=== PATIENT | female | born 1965 | race Caucasian/White ===

== ENCOUNTER 2017-05-26 07:44 | Inpatient (IN) ==
[2017-05-26] MEDS ORDERED: FUROSEMIDE 100 MG/10 ML VIAL ONE (07:48)
[2017-05-26] MEDS ORDERED: methylPREDNISolone SOD SUC 125 MG/2 ML VIAL IV STA (07:48)
[2017-05-26] MEDS ORDERED: ALBUTEROL 2.5 MG/3 ML NEB RESP TX STA (07:48)
[2017-05-26] MEDS ORDERED: FUROSEMIDE 100 MG/10 ML VIAL IV STA (07:48)
--- NOTE | 2017-05-26 08:04 | Emergency Department Note ---
Arrival - Arrival Chief Complaint: Shortness of Breath ED Nursing Triage Note: pt c/o sudden sob onset about 45 minutes travel pta per ems. pt on cpap. no iv. Mode of Arrival: Stretcher Source: EMS Time Seen by Provider: 05/26/17 07:48 - History of Present Illness HPI Narrative: Patient is a 51-year-old white female who is brought from home by EMS with profound shortness of breath. Prior to arrival EMS was unable to obtain a liner and airway other than BiPAP. Patient was unable to provide a history due to her profound shortness of breath. Patient was intubated upon arrival. Daughter has now arrived and states that the patient was to have a valve replacement at [facility] but never followed up. Onset (ago): hour(s) (1) Consistency: constant Severity: severe Allergies/Adverse Reactions: Allergies Allergy/AdvReac Type Severity Reaction Status Date / Time Amoxicillin Allergy Unknown/Unable Verified 05/26/17 09:08 to obtain Home Medications: Home Medications Medication Instructions Recorded Confirmed Type Albuterol Inhaler [Proventil 2 puff INH Q4H PRN #1 inhaler 01/16/17 Rx Inhaler] Review of System - Review of System ROS unobtainable: other (Due to profound dyspnea) 12 point system: reviewed and no additional remarkable complaints except as stated Medical,Surgical,& Family Hx - Social History Functional capacity: independent ambulation Exam Vital Signs: Vital Signs Temperature 98.1 F 05/26/17 09:37 Pulse Rate 118 H 05/26/17 09:37 Respiratory Rate 12 05/26/17 09:37 Blood Pressure 162/95 05/26/17 09:37 O2 Sat by Pulse Oximetry 95 05/26/17 09:37 GENERAL: This is a well-nourished white female in extremis in severe respiratory distress. VITAL SIGNS: Reviewed HEENT: Head is atraumatic and normocephalic. Pupils are equal round react to light. Extraocular movements are intact. Oropharynx is benign with moist mucous membranes. NECK: Neck is soft and supple without tenderness. There are no masses. There is no lymphadenopathy. LUNGS: Rales bilaterally, retractions. Chest rises symmetrically. There is no chest wall tenderness. CV: Heart is rapid rate regular rhythm without murmurs rubs or gallops. ABDOMEN: Abdomen is soft, nontender to palpation. There are no abdominal abnormal masses palpated. There is no organomegaly. Bowel sounds are present and active. SKIN: Cool and moist. No rash. EXTREMITIES: Patient has full range of motion without tenderness. There is no pedal edema. NEUROLOGIC: Eyes open, nonverbal. Moves all extremities. Course - Consultations Consultation #1: Discussed with hospitalist. Patient will be admitted to their service. Time: :17 Procedures - Central Line Placement Right Femoral Consent Obtained: verbal consent Time Out Performed: Yes Patient Placed on Monitor/Pulse Ox: Yes MD Prep: mask, gown, gloves Central Line Prep: Chlorhexidine scrub Local Anesthetic: lidocaine 1% Amount of anesthesia used (mL): 3 Ultrasound Used for Placement: No Central Line Lumen Inserted: triple Post Procedure: sutured in place, good blood return, all ports aspirated, flushed, capped, sterile dressing applied Post Procedure X-Ray: tip of catheter in good position Patient Tolerated Procedure: well Complications: none - Intubation Time out performed: Yes sedative: Etomidate Mg Given: 20 paralytic: Succinylcholine Mg Given: 100 Laryngoscope: fiber optic video scope ET Tube Size: 8 ET Tube Uncuffed: No Tube Secured Depth (cm): 22 Tube Secured Location: lips Tube Placement Confirmation: visualized tube passing through cords, equal breath sounds bilaterally, no breath sounds over epigastrium, confirmation detector color change Patient Tolerated Procedure: well Intubation Complications: none - IO Right Tibia Consent Obtained: verbal consent Local Anesthetic: lidocaine 1% Amount of anesthesic used (mL): 1 IO Instrument Used to Penetrate the Cortex: battery powered IO drill Patient Tolerated Procedure: well Complications: none Results - Labs CBC & BMP: 05/26/17 08:01 05/26/17 08:01 Lab Results: I have reviewed the patients labs Labs: Preliminary echocardiogram report: EF 10-15%, severe MR, trace TR. - EKG EKG results: interpreted by ERMD - Impressions EKG: Sinus tachycardia with a rate of 113, ST segment depression laterally, normal axis. - Diagnostic Findings Procedure: Chest x-ray: image reviewed by me (Endotracheal tube is in good position above the billie. Bilateral increased pulmonary markings. This is consistent with pulmonary edema.), KUB x-ray: image reviewed by me (Tip of central line is present in the right femoral vein), CT: image reviewed by me ( CT head: No acute intracranial lesion or hemorrhage.) Critical Care Time Critical Care Time: Yes Total Critical Care Time: 60 Disposition Clinical Impression: Acute respiratory failure, Pulmonary edema, Severe mitral regurgitation, Cardiomyopathy Case discussed with: patient's family Disposition: Still a Patient Condition: Critical
[2017-05-26] MEDS ORDERED: SUCCINYLCHOLINE 200 MG/10 ML VIAL ONE (08:09)
[2017-05-26] MEDS ORDERED: VECURONIUM 10 MG VIAL IV ONE (08:09)
[2017-05-26] MEDS ORDERED: methylPREDNISolone SOD SUC 125 MG/2 ML VIAL ONE (08:09)
[2017-05-26] MEDS ORDERED: ETOMIDATE 20 MG/10 ML VIAL IV ONE (08:09)
[2017-05-26] MEDS ORDERED: VECURONIUM 10 MG VIAL IV STA (08:14)
[2017-05-26 08:21] LABS: Basophils # 0.1 10*3/uL (0.0-0.2); Basophils % 0.5 % (0.0-0.8); Eosinophils # 0.2 10*3/uL (0.0-0.87); Hematocrit 41.1 VOL% (35.7-47.0); Hemoglobin 12.4 GM/DL (12.0-16.0); INR 1.5; Immature Granulocytes % 0.7 %; Immature Granulocytes Absolute 0.07 #; Lymphocytes # 4.5 10*3/uL (1.4-4.0); Lymphocytes % 45.2 % (21.3-54.2); Mean Corpuscular HGB Conc 30.2 GM/DL (32-36); Mean Corpuscular Hemoglobin 29 PG (27-34); Mean Corpuscular Volume 96.5 FL (87-102); Mean Platelet Volume 10.9 FL (9.6-12.0); Monocytes # 0.5 10*3/uL (0.11-0.8); Monocytes % 5.2 % (1.7-12.7); NRBC # 0.07 10*3/uL; Neutrophils # 4.6 10*3/uL (1.4-7.4); Neutrophils % 46.4 % (38.7-73.9); PT Patient Result 16.6 SECS; Partial Thromboplastin Time 30.1 SECS (0-40); Platelet Count 300 T/CUMM (130-400); Red Blood Count 4.26 MC/CUMM (3.8-5.5); Red Cell Distribution Width 18.1 % (9.3-17.3)
--- NOTE | 2017-05-26 08:32 | EKG Report ---
Stationary ECG Study [facility] ER Test Date: 05/26/2017 8:30:10 AM Pat Name: ELVA SERNA Department: Room: Gender: F [employer]: : 01/21/1959 Requested by: Justen Chan Order Number: [id number] Reading MD: SHELDON SALDAÑA Intervals [place] Rate: 113 P: 56 RI: 154 QRS: 110 QRSD: 97 T: -47 QT: 322 QTc: 389 Interpretive Statements SINUS TACHYCARDIA POSSIBLE RIGHT VENTRICULAR HYPERTROPHY ST DEVIATION AND MODERATE T-WAVE ABNORMALITY, CONSIDER INFERIOR ISCHEMIA Electronically Signed On 05-26-17 10:40:07 CDT by SHELDON SALDAÑA [email or web address]
[2017-05-26 08:44] LABS: ABG HCO3 19.3 MMOL/L (20-26); ABG Oxygen Saturation 25.8 % (95-100); ABG TCO2 21.4 MMOL/L (23-27)
[2017-05-26 08:45] LABS: ABG PCO2 70.7 MM HG (35-48); ABG PH 7.053 (7.35-7.45)
[2017-05-26 08:46] LABS: ABG PO2 20.6 MM HG (80-95)
[2017-05-26 08:48] LABS: Albumin 3.3 G/DL (3.4-5.0); Bilirubin,Total 0.4 MG/DL (0.2-1.0); Calcium 8.5 MG/DL (8.5-10.1); Magnesium 2.3 MG/DL (1.8-2.4); Potassium 4.6 MMOL/L (3.5-5.1); Total Protein 6.9 G/DL (6.4-8.3); Troponin I Only 0.029 NG/ML (0.00-0.045)
[2017-05-26] MEDS ORDERED: SODIUM BICARBONATE 50 MEQ/50 ML VIAL IV STA (08:48)
[2017-05-26] MEDS ORDERED: SODIUM BICARBONATE 50 MEQ/50 ML SYRINGE IV ONE (08:49)
--- NOTE | 2017-05-26 09:10 | CT Report ---
CT brain Indication: Altered mental status Comparison: None available Technique: Axial CT imaging of the brain is performed without contrast with 3 mm increments. Findings: No evidence of hemorrhage, mass mass effect midline shift or acute infarct seen. The brain parenchyma attenuation and differentiation appears within normal limits. The ventricles and cisterns are normal in caliber. No cranial or skull base abnormality is identified. Impression: No evidence of acute process or other significant abnormality demonstrated. This CT exam was performed using one or more the following dose reduction techniques: Automated exposure control, adjustment of the MA and/or KV according to patient size, or use of iterative reconstruction technique. PROCEDURE INTERPRETED AT [facility] [place] DEPARTMENT OF RADIOLOGY Final Report Signed by: Dr. Lincoln Delcid
--- NOTE | 2017-05-26 09:12 | XRay Report ---
XR chest 1V portable Indication: Shortness of breath Comparison: None available Findings: The heart and mediastinum are stable in size and configuration. Endotracheal tube is present with tip at the clavicle level. NG tube present with tip in the distal esophagus. The pulmonary vascularity is increased with bilateral increased interstitial lung density. No other lung infiltrates, effusions, pneumothorax or other abnormality is demonstrated. Impression: Findings suggest cardiac decompensation. Endotracheal tube position appears within normal limits. NG tube tip is in distal esophagus. PROCEDURE INTERPRETED AT [facility] DEPARTMENT OF RADIOLOGY Final Report Signed by: Dr. Lincoln Delcid
--- NOTE | 2017-05-26 09:13 | XRay Report ---
XR KUB Indication: Femoral line placement Comparison: None available Findings: No free fluid or free air seen. Clips are present from previous surgery. A right femoral catheter is present, appears within normal limits. The bowel gas pattern appears within normal limits. No abnormal calcifications are present. No other abnormality is identified. Impression: Catheter position appears within normal limits. No other acute findings. PROCEDURE INTERPRETED AT [facility] DEPARTMENT OF RADIOLOGY Final Report Signed by: Dr. Lincoln Delcid
[2017-05-26 09:49] LABS: Apearance,Urine Slightly Hazy (Clear); Bacteria,Urine Occasional /HPF (Few); Bilirubin,Urine Negative (Negative); Blood, Urine Small mg/dL (Negative); Glucose,Urine (UA) 50 mg/dL (Negative); Hyaline Casts,Urine 1 /LPF (0-3); Ketones,Urine Negative (Negative); Mucus,Urine Occasional /LPF (Occasional); Nitrite,Urine Negative (Negative); Protein,Urine 100 MG/DL; RBC,Urine 51 /HPF (0-4); Squamous Epithelial Cell,Urine Occasional /HPF (0-10); Urine Color Yellow (Yellow); Urine Specific Gravity 1.006 (1.001-1.035); Urine Urobilinogen < 2.0 EU/DL (0.2-1.0); WBC,Urine 28 /HPF (0-6)
[2017-05-26 10:02] LABS: Barbiturates Screen,Urine Negative (Negative); Benzodiazepines Screen,Urine Negative (Negative); Cannabinoid Screen,Urine Negative (Negative); Opiate Screen,Urine Positive (Negative); Phencyclidine Screen,Urine Negative (Negative)
[2017-05-26 10:15] LABS: ABG Base Excess -7.1 MMOL/L (-2.5-2.5); ABG HCO3 20.6 MMOL/L (20-26); ABG Oxygen Saturation 94.3 % (95-100); ABG PCO2 49.4 MM HG (35-48); ABG PH 7.237 (7.35-7.45); ABG PO2 83.9 MM HG (80-95); ABG TCO2 22.1 MMOL/L (23-27)
[2017-05-26] MEDS ORDERED: ONDANSETRON 4 MG/2 ML VIAL IV PRN (10:18)
[2017-05-26] MEDS ORDERED: GLUCAGON 1 MG VIAL IM PRN (10:18)
[2017-05-26] MEDS ORDERED: DEXTROSE 50% 25 GM/50 ML VIAL IV PRN (10:18)
[2017-05-26] MEDS ORDERED: ALBUTEROL 2.5 MG/3 ML NEB RESP TX PRN (10:18)
--- NOTE | 2017-05-26 10:39 | Hospitalist History & Physical ---
<Denice Garcia - Last Filed: 05/26/17 14:24> Assessment and Plan (1) Acute respiratory failure Status: Acute Assessment and plan: Admit to ICU. Mechanical ventilation. Consult pulmonary for vent management. IV antibiotics. Blood cultures pending. UA showed small leuks. Lactic acid elevated. repeat per protocol. Follow closely. CBC/BMP in am. CXRs. Current Visit: Yes (2) Pulmonary edema Status: Acute Assessment and plan: IV lasix. Consult pulmonary. Current Visit: Yes (3) Cardiomyopathy Status: Acute Assessment and plan: Consult cards. prior hx of valve insufficiency. Current Visit: Yes (4) Elevated troponin Status: Acute Assessment and plan: Serial troponins. Serial ekgs. Consult cards. Echo ordered to evaluate function. Current Visit: Yes (5) CHF (congestive heart failure) Status: Acute Assessment and plan: BNP >5000. Repeat in am. Diuresis. CXR shows decompensation. Consult cardiology. Current Visit: Yes History of Present Illness Chief complaint: shortness of breath History of present illness: Ms. Najera is a 51 year old white female with a history of htn, chf, and valvular insufficiency that presented to the ED via EMS for evaluation of sudden onset shortness of breath. Pt. is unable to provide any history as she is intubated during our encounter. Pt.'s daughter Delia is present at the bedside and provides information. She states that she was preparing to go to school this morning when this incident began. She states she checked on her mom around 6:34 and she was sleep. She heard movement and her mother was up (she went to bathroom and returned to bedroom). Around 645, her mother called her to room. Ms. Najera said "oh here we ago again" and stated she was having trouble breathing. Her daughter attempted to calm her down. She states at that point she noticed discoloration in her skin. Ms. Najera requested EMS be called. Upon their arrival they were unable to obtain an airway other than a BiPAP. Pt. was intubated on arrival to ED. Remarkable labs revealed lactic acid of 11.5, glucose 248, BNP >5000, creatinine 1.50, anion gap, and troponin 3.93. UA showed small leuks. Ph of 7.237, Co2 49.4. Pt's daughter does report that her mom was supposed to have a valve replacement in [place] but never followed up. She is unaware of any health history other than what is provided. She is also unaware of any med compliance or noncompliance. Pt.'s case has been discussed with ER physician Dr. [place] and hospitalist Dr. Bartholomew. Pt. will be admitted to the hospitalist program and placed in the ICU for close monitoring. Pt does not have an advanced directive. Home meds are not available. Cardiology and pulmonology will be consulted to assist in care. Home Medications Medication Instructions Recorded Confirmed Type Albuterol Inhaler [Proventil 2 puff INH Q4H PRN #1 inhaler 01/16/17 Rx Inhaler] Carvedilol [Carvedilol] 25 mg PO BID 05/26/17 History Gabapentin [Gabapentin] 300 mg PO TID 05/26/17 History cloNIDine HCl [Clonidine HCl] 0.1 mg PO QAM 05/26/17 History clonazePAM [Clonazepam] 2 mg PO BID PRN 05/26/17 History Allergies Allergy/AdvReac Type Severity Reaction Status Date / Time Amoxicillin Allergy Unknown/Unable Verified 05/26/17 09:08 to obtain Medical,Surgical,& Family Hx - Medical History Cardio: History of: CHF, Hypertension Psychological: History of: Anxiety Disorders - Social History Smoking Status: Unknown if ever smoked Frequency of Alcohol Use: Unknown Type of Drug Use: Unknown ROS unobtainable: due to endotracheal tube Exam - Constitutional Vitals: Period Temp Pulse Resp BP Sys/Smith Pulse Ox Last 24 Hr 98.1 F-99.2 F 103-130 12-40 126-162/61-98 83-100 General appearance: mild distress, disheveled - Head Head exam: Present: normal inspection. Absent: atraumatic, abrasion - Eye Eye exam: Absent: EOMI Pupils: Present: fixed. Absent: SURJIT - Neck Neck exam: Present: normal inspection - Respiratory Respiratory exam: Present: rhonchi - Cardiovascular Cardiovascular exam: Present: tachycardia - GI/Abdominal GI/Abdominal exam: Present: normal bowel sounds, soft. Absent: tenderness - Neurological Exam Neurological exam: Present: altered - Psychiatric Psychiatric exam: Present: other (unable to assess) - Skin Skin exam: Present: diaphoretic, intact, mottled Results - Labs CBC & BMP: 05/26/17 08:01 05/26/17 08:01 Lab Results: I have reviewed the past 24 hour labs <PumaDarline - Last Filed: 05/26/17 17:05> History of Present Illness History of present illness: Patient seen and examined along with IT APPLICATIONS DEVELOPER Garcia, agree with history, assessment and plan as documented. Patient with acute episode of SOB, intubated on arrival to the ED. Per daughter patient with history of chf and is suppose to be having a valve replaced in [place]. CXR with pulmonary edema. BNP >5000. Elevated lactic acid with no fever or leukocytosis. Troponin negative on admission. On my exam today, her blood pressure was actually a little elevated but her extremities are cold. Cardiology consulted. Increase in troponin to 6. Echo with EF 10%, grade 3 diastolic dysfunction and moderate to severe, eccentric mitral regurgitation. Exam - Constitutional Vitals: Period Temp Pulse Resp BP Sys/Smith Pulse Ox Last 24 Hr 96 F-99.2 F 70-130 12-40 60-162/44-122 10-100 Results - Labs CBC & BMP: 05/26/17 08:01 05/26/17 08:01
[2017-05-26] MEDS: PROPOFOL 1,000 MG/100 ML BOTTLE IV SCH (11:01)
[2017-05-26] MEDS: PANTOPRAZOLE 40 MG VIAL IV SCH (11:03)
[2017-05-26 11:31] LABS: CKMB % 6.9 %
[2017-05-26 11:38] LABS: Troponin I Only 3.93 NG/ML (0.00-0.045)
[2017-05-26] MEDS ORDERED: DOBUTamine 500 MG/250 ML PREMIX IV SCH ×2 (12:00→18:00)
--- NOTE | 2017-05-26 12:12 | Nuclear Medicine Report ---
History: Shortness of breath. Evaluate for pulmonary embolus Date: 05/26/2017 Study: Nuclear medicine ventilation/perfusion lung scan Comparison exam: Chest x-ray 05/26/2017 Following the inhalation of 40 mCi aerosolized technetium 99m DTPA, images were obtained over the lungs in 3 projections for the purpose of a ventilation study. Then, following the IV administration of 5 mCi technetium 99m MAA, images were acquired of the lungs in the same projections for the purpose of a perfusion scan. There is no moderate or large unmatched segmental perfusion defect in either lung. There are some small matched areas of subsegmental decreased ventilation and perfusion in the lingula and right middle lobe. There is an additional small to moderate ventilation defect in the right lower lobe laterally. The chest x-ray shows a bilateral perihilar pulmonary edema pattern. Impression: The study is abnormal but is considered low probability for pulmonary embolic disease PROCEDURE INTERPRETED AT [facility] DEPARTMENT OF RADIOLOGY Final Report Signed by: Dr. Ellen Lowery
[2017-05-26] MEDS: INSULIN REGULAR 100 UNIT/ML SUBCUT SCH ×3 (12:41→23:46)
[2017-05-26] MEDS: cefTRIAXone 1,000 MG in SODIUM CHLORIDE 0.9% 100 ML IV SCH (12:45)
--- NOTE | 2017-05-26 12:56 | Pulmonology Consult Note ---
Assessment and Plan (1) Acute respiratory failure Status: Acute Assessment and plan: Patient is on the ventilator now in ICU. She presented with acute respiratory distress. Current Visit: Yes (2) Pulmonary edema Status: Acute Assessment and plan: Patient looks like she has acute pulmonary edema. Current Visit: Yes (3) Severe mitral regurgitation Status: Acute Assessment and plan: Patient apparently has severe mitral insufficiency and may have cardiogenic shock now. Current Visit: Yes (4) Cardiomyopathy Status: Acute Assessment and plan: She has acute pulmonary edema and cardiology will evaluate Current Visit: Yes History of Present Illness Chief complaint: Ventilator management History of present illness: Ms. Najera is a 51 year old white female that apparently came in today with acute respiratory distress and has acute pulmonary edema. She has known valvular heart disease and has hypertension and heart failure. This morning she had acute distress and had to be intubated. She is now on the ventilator in the ICU. She has been hypotensive and looks like she is in cardiogenic shock. Otherwise there is not a lot of past history available. Home Medications Medication Instructions Recorded Confirmed Type Albuterol Inhaler [Proventil 2 puff INH Q4H PRN #1 inhaler 01/16/17 Rx Inhaler] Allergies Allergy/AdvReac Type Severity Reaction Status Date / Time Amoxicillin Allergy Unknown/Unable Verified 05/26/17 09:08 to obtain ROS unobtainable: due to endotracheal tube (Unable to give any history at present) Exam (Pulmonay) H&P - Constitutional Vitals: Period Temp Pulse Resp BP Sys/Smith Pulse Ox Last 24 Hr 96.0 F-99.2 F 103-130 12-40 126-162/61-103 83-100 General appearance: severe distress (The patient is quite ill on the ventilator. ), under weight - Head Head exam: Present: normal inspection, normocephalic - Eye Eye exam: Present: EOMI. Absent: scleral icterus Pupils: Present: SURJIT - ENT ENT exam: Present: other (ET tube is in good position) - Neck Neck exam: Absent: lymphadenopathy, thyromegaly - Respiratory Respiratory exam: Present: rales (Patient has extensive bilateral rales.) - Cardiovascular Cardiovascular exam: Present: regular rate and rhythm, systolic murmur, tachycardia - GI/Abdominal GI/Abdominal exam: Present: soft. Absent: distended, organomegaly, tenderness - Extremities Exam Extremities exam: Absent: calf tenderness, edema - Neurological Exam Neurological exam: Present: other (Patient is sedated at present.) - Psychiatric Psychiatric exam: Absent: anxious - Skin Skin exam: Present: mottled, other (Her extremities are cool.) Medical,Surgical,& Family Hx - Medical History Cardio: History of: CHF, Hypertension Psychological: History of: Anxiety Disorders - Social History Smoking Status: Unknown if ever smoked Frequency of Alcohol Use: Unknown Type of Drug Use: Unknown Results - Labs CBC & BMP: 05/26/17 08:01 05/26/17 08:01 Labs: Her PO2 is 83 with a PCO2 of 49 and a pH of 7.23 in the emergency room. - Diagnostic Findings Procedure: Chest x-ray: image reviewed by me, report reviewed by me (Chest x- ray shows acute pulmonary edema)
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
--- NOTE | 2017-05-26 16:22 | ECHO Report ---
Fabiola Najera Exam Date: 05/26/2017 09:11 Referring Physician: Technologist: Diamond Van LRCANDACE Age: 51 Ht (in): 64 Wt (lb): 160 Gender: F Exam Location: [facility] Echo Indications: acute resp failure, pul edema, cardiomyopathy BP: 153 / 101 HR: 99 Rhythm: Sinus Technical Quality: IMPRESSIONS Moderately dilated left ventricle, without hypertrophy. Severe global hypokinesis, estimated left ventricular ejection fraction 10%. Grade 3 diastolic dysfunction. Mild right atrial and severe left atrial enlargement. The posterior mitral leaflet is restricted in mobility. Moderate to severe, eccentric mitral regurgitation. Mild pulmonary hypertension. MEASUREMENTS (Male / Female) Normal Values 2D ECHO LV Diastolic Diameter PLAX 6.6 cm 4.2 - 5.9 / 3.9 - 5.3 cm LV Systolic Diameter PLAX 6.5 cm LV Fractional Shortening PLAX 1.4 % IVS Diastolic Thickness 0.9 cm 0.6 - 1.0 / 0.6 - 0.9 cm LVPW Diastolic Thickness 1.0 cm 0.6 - 1.0 / 0.6 - 0.9 cm Aortic Root Diameter 2.6 cm LA Systolic Diameter LX 5.0 cm 3.0 - 4.0 / 2.7 - 3.8 cm DOPPLER TR Peak Velocity 326.0 cm/s TR Peak Gradient 42.5 mmHg FINDINGS Left Ventricle Moderately dilated left ventricle, without hypertrophy. Severe global hypokinesis, estimated left ventricular ejection fraction 10%. Grade 3 diastolic dysfunction. Right Ventricle Normal right ventricular size. Normal systolic function Right Atrium The right atrium is mildly enlarged. Left Atrium Severely dilated left atrium. Mitral Valve The posterior mitral leaflet is restricted in mobility. Moderate to severe, eccentric mitral regurgitation. Aortic Valve Structurally normal aortic valve, without stenosis or insufficiency Tricuspid Valve Morphologically normal tricuspid valve. Mild tricuspid valve regurgitation. Tricuspid regurgitation velocities suggest a PAP of 42.5 mmHg + RAP. Pulmonic Valve Morphologically normal pulmonic valve. Trace insufficiency. Pericardium No pericardial effusion. Aorta Normal size aortic root and proximal ascending aorta. Luis Alberto Bone (Electronically Signed) Final Date: 26 May 2017 16:21
[2017-05-26] MEDS: FUROSEMIDE 40 MG/4 ML VIAL IV SCH (17:05)
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
[2017-05-26] MEDS: MORPHINE 2 MG/1 ML SYRINGE IV PRN ×2 (20:28→23:00)
--- NOTE | 2017-05-26 22:51 | EKG Report ---
Stationary ECG Study [facility] Test Date: 05/26/2017 10:44:50 PM Pat Name: JOVANY EARL Department: Room: 115 Gender: F Special Educator: TS : [id number] Requested by: Volodymyr Mann Order Number: [id number] Reading MD: MARIA L HANCOCK Intervals [place] Rate: 96 P: 74 NV: 180 QRS: 57 QRSD: 90 T: 269 QT: 400 QTc: 454 Interpretive Statements SINUS RHYTHM ST DEVIATION AND MODERATE T-WAVE ABNORMALITY, CONSIDER ANTEROLATERAL ISCHEMIA ST DEVIATION AND MODERATE T-WAVE ABNORMALITY, CONSIDER INFERIOR ISCHEMIA Prolonged QTc Electronically Signed On 05-27-17 06:57:59 CDT by MARIA L HANCOCK [email or web address]
[2017-05-27] MEDS: MORPHINE 2 MG/1 ML SYRINGE IV PRN ×4 (01:07→14:06)
[2017-05-27] MEDS: PROPOFOL 1,000 MG/100 ML BOTTLE IV SCH ×4 (01:17→20:28)
[2017-05-27 03:21] LABS: ABG Base Excess 2.6 MMOL/L (-2.5-2.5); ABG HCO3 26.7 MMOL/L (20-26); ABG Oxygen Saturation 99.5 % (95-100); ABG PCO2 33.7 MM HG (35-48); ABG PH 7.487 (7.35-7.45); ABG TCO2 22.2 MMOL/L (23-27); Allen Test Positive; Pt O2 Delivery Device Ventilator
[2017-05-27 05:42] LABS: Basophils % 0.1 % (0.0-0.8); Hematocrit 37.2 VOL% (35.7-47.0); Hemoglobin 12.4 GM/DL (12.0-16.0); Immature Granulocytes % 0.9 %; Immature Granulocytes Absolute 0.13 #; Lymphocytes # 0.8 10*3/uL (1.4-4.0); Lymphocytes % 5.2 % (21.3-54.2); Mean Corpuscular HGB Conc 33.3 GM/DL (32-36); Mean Corpuscular Hemoglobin 28 PG (27-34); Mean Corpuscular Volume 85.3 FL (87-102); Mean Platelet Volume 10.6 FL (9.6-12.0); Monocytes # 0.5 10*3/uL (0.11-0.8); Monocytes % 3.4 % (1.7-12.7); Neutrophils # 13.5 10*3/uL (1.4-7.4); Neutrophils % 90.4 % (38.7-73.9); Platelet Count 245 T/CUMM (130-400); Red Blood Count 4.36 MC/CUMM (3.8-5.5); Red Cell Distribution Width 17.7 % (9.3-17.3); White Blood Count 14.9 T/CUMM (4-12)
[2017-05-27] MEDS: INSULIN REGULAR 100 UNIT/ML SUBCUT SCH ×3 (05:54→17:40)
[2017-05-27 06:22] LABS: Calcium 8.9 MG/DL (8.5-10.1); Osmolality,Calculated 284.5 MOS/KG (273-304); Potassium 4.1 MMOL/L (3.5-5.1)
[2017-05-27] MEDS ORDERED: MAGNESIUM SULF RIDER 4 GM in PREMIX 1 EACH IV PRN (07:03)
[2017-05-27] MEDS ORDERED: MAGNESIUM SULF RIDER 2 GM in PREMIX 1 EACH IV PRN (07:03)
--- NOTE | 2017-05-27 07:28 | Pulmonology Progress Note ---
Pulmonary - PN: Subj Interval history: Patient is a 51-year-old lady that has a history of having severe mitral insufficiency. She apparently has a very severe cardiomyopathy. She came in with acute pulmonary edema has been on the ventilator. She has diuresed fairly well and her chest x-ray looks much better. Her oxygenation has improved nicely. Her blood pressure is much more stable now. Overall she is doing better now. Exam (Progress Note) - Constitutional Vitals: Period Temp Pulse Resp BP Sys/Smith Pulse Ox Last 24 Hr 96 F-99.2 F 70-130 1-40 60-162/44-122 10-100 Exam: General appearance: no distress (The patient is comfortable on the ventilator now and her blood pressure is much improved.) - Head Head exam: Present: normal inspection, normocephalic - Eye Eye exam: Present: EOMI. Absent: scleral icterus Pupils: Present: SURJIT - ENT ENT exam: Present: other (ET tube is in good position) - Neck Neck exam: Absent: lymphadenopathy, thyromegaly - Respiratory Respiratory exam: Present: She has good breath sounds now and her lungs sound much clearer with less rales. - Cardiovascular Cardiovascular exam: Present: regular rate and rhythm, systolic murmur, tachycardia - GI/Abdominal GI/Abdominal exam: Present: soft. Absent: distended, organomegaly, tenderness - Extremities Exam Extremities exam: Absent: calf tenderness, edema - Neurological Exam Neurological exam: Present: other (Patient is sedated at present.) - Psychiatric Psychiatric exam: Absent: anxious - Skin Skin exam: Present: Extremities are warm now with good color. Results - Labs CBC & BMP: 05/27/17 05:12 05/27/17 05:12 Labs: PO2 is 370 with a PCO2 33 and a pH of 7.48 - Diagnostic Findings Procedure: Chest x-ray: image reviewed by me, report reviewed by me (Chest x- ray is much clearer now with resolution of the CHF.) Assessment and Plan (1) Acute respiratory failure Status: Acute Assessment and plan: Patient is on the ventilator now in ICU. She presented with acute respiratory distress. Her oxygenation is much better and her respiratory distress is stable now. Current Visit: Yes (2) Pulmonary edema Status: Acute Assessment and plan: Patient looks like she has acute pulmonary edema. Her pulmonary edema is much improved. Will start weaning from the ventilator. Current Visit: Yes (3) Severe mitral regurgitation Status: Chronic Assessment and plan: Patient apparently has severe mitral insufficiency and came in with congestive heart failure. She is a little more stable now. Current Visit: Yes (4) Cardiomyopathy Status: Acute Assessment and plan: She has acute pulmonary edema and apparently her ejection fraction is very poor. Current Visit: Yes
--- NOTE | 2017-05-27 08:20 | XRay Report ---
Portable chest Exam date: 05/27/2017 304 AM Indication: Shortness of breath, cough Comparison: Previous day at 0820 hours Findings: Cardiomediastinal contours are stable with no change in tube or line placement. Partial clearing of the central interstitial alveolar opacities within the upper and left lower lobe. Persistent hazy groundglass consolidation within the right lung base with partial obscuration right hemidiaphragm. No acute osseous abnormalities. Visualized upper abdomen demonstrates no acute pathology. Impression: Improving pulmonary edema pattern PROCEDURE INTERPRETED AT [facility] DEPARTMENT OF RADIOLOGY Final Report Signed by: Aleksandr Bautista
[2017-05-27 08:27] LABS: ABG Base Excess 3.2 MMOL/L (-2.5-2.5); ABG HCO3 27.2 MMOL/L (20-26); ABG Oxygen Saturation 95.1 % (95-100); ABG PCO2 38.8 MM HG (35-48); ABG PH 7.453 (7.35-7.45); ABG PO2 79.7 MM HG (80-95); ABG TCO2 23.9 MMOL/L (23-27); Allen Test Positive; Pt O2 Delivery Device Ventilator
[2017-05-27] MEDS: FUROSEMIDE 40 MG/4 ML VIAL IV SCH ×2 (08:35→15:39)
[2017-05-27] MEDS: PANTOPRAZOLE 40 MG VIAL IV SCH (11:39)
[2017-05-27] MEDS: cefTRIAXone 1,000 MG in SODIUM CHLORIDE 0.9% 100 ML IV SCH (12:48)
--- NOTE | 2017-05-27 13:46 | Cardiology Progress Note ---
Jax Carrasco Vanessa, RN, am scribing for, and in the presence of, Luis Alberto Bone MD 13 :45. Assessment and Plan - Time spent with patient Time spent with patient: Greater than 30 minutes (1) Acute respiratory failure Status: Acute Assessment and plan: 51 year old WF, PMHx HTN, NICM with acute on chronic systolic CHF, EF 10% and severe MR. She has been noncompliant in the past with illicit drug use and smoking, has been referred for mitral valve repair in past but has not followed up. Now admitted with acute pulmonary edema and respiratory failure, intubated and requiring IV Dobutamine infusion. Echo shows moderately dilated LV and severe global hypokinesis, EF 10%, moderate diastolic dysfunction, severe LA enlargement, mild pulm HTN with PAP 42.5 mmHg, severe MR with restriction of posterior mitral leaflet. EKG: SR/ST 1. CHF. She had hypotension earlier, dobutamine was initiated at 5, which triggered bigemin PVCs. Decreased dobutamine to 2, so far fair hamodynamics. Severely depressed systolic function, chronic severe MR. PVC burden decreased 2. Once blood pressure allows, we will try to reinitiate vasodilator treatment. 3. Elevated troponin. She has nonischemic cardiomyopathy, this could have been related to hypoperfusion. LA was also elevated. Doubt ACS 4. Severe MR. She did not follow up with instructions for corrective surgery in the past. If recovers from acute issues, this will need to be readdressed. 5. Continue diuresis and positive pressure ventilation for hemodynamic support 6. Poor prognosis Current Visit: Yes (2) Acute on chronic systolic CHF (congestive heart failure) Status: Chronic Assessment and plan: SEE PLAN OF CARE LISTED ABOVE. Current Visit: Yes (3) Elevated troponin Status: Acute Assessment and plan: SEE PLAN OF CARE LISTED ABOVE. Current Visit: Yes (4) Nonischemic cardiomyopathy Status: Chronic Assessment and plan: SEE PLAN OF CARE LISTED ABOVE. Current Visit: Yes (5) History of left bundle branch block Status: Chronic Assessment and plan: SEE PLAN OF CARE LISTED ABOVE. Current Visit: Yes (6) Hypothyroidism Status: Chronic Assessment and plan: SEE PLAN OF CARE LISTED ABOVE. Current Visit: Yes (7) Severe mitral regurgitation Status: Chronic Assessment and plan: SEE PLAN OF CARE LISTED ABOVE. Current Visit: Yes (8) Hypomagnesemia Status: Acute Assessment and plan: SEE PLAN OF CARE LISTED ABOVE. Current Visit: Yes Cardiology - PN: Subj Interval history: LEHR CUTTER: DR. MARTINEZ (HAS NOT SEEN SINCE 2013) SUMMARY: Ms. Najera, 51 year old WF, PMHx hypertension and nonischemic cardiomyopathy with EF 10-15%, intermittent left bundle branch block. She also has severe mitral valve insufficiency and acute on chronic systolic CHF, NYHA class II- III. Other history includes tobaccoism and illicit drug use. She was last seen by Dr. Martinez in October 2013 and was noted to have numerous hospitalization for recurrent CHF. Consideration for AICD placement at that time but patient would have to demonstrate medical compliance and cessation of illicit drugs. Afterward, patient lost to follow up. Cardiac cath in July 2013 at [facility] per Dr. Martinez with widely patent coronary arteries. Patient admitted to ICU on 05/26 after she woke up and was experiencing severe shortness of breath. By the time she arrived to the ED, patient was acidotic, diaphoretic, and was intubated. Initially hypertensive but after arrival to ICU , hypotensive with SBP 60s. IV Dobutamine for support. Initial BNP greater than 5000 with CTNI 3.93. Chest x-ray with increased pulmonary congestion. Pulmonary embolus ruled out by VQ lung scan. Being treated for acute respiratory failure and acute on chronic systolic congestive heart failure with severely reduced EF 10%. Echocardiogram moderately dilated LV and severe global hypokinesis, EF 10%, and moderate diastolic dysfunction, severe LA enlargement, mild pulm HTN with PA 42.5 mmHg, severe MR with restriction of posterior mitral leaflet. 2016: Intubated and sedated this morning. She is alert, responsive, and communicates. Overnight, apparently indicated she was having some chest discomfort. Received Morphine. Diuresed well with IV Lasix overnight. BP improved this morning, currently 110/65. WBC 14,900. Improved creatinine, 1.1. BMP slight improvement, 3700. Hypomagnesemia, 1.5. CTNI 6.00, not significantly changed. EKG shows SR, no acute ischemic changes, less bigeminy and ventricular ectopy this morning. Chest x-ray shows improvement of pulmonary edema. . Exam (Progress Note) - Constitutional Vitals: Period Temp Pulse Resp BP Sys/Smith Pulse Ox Last 24 Hr 96 F-98.9 F 70-118 1-22 60-162/44-122 10-100 Exam: General: Present: Other (appears chronically ill; overweight; intubated) Skin color improved today. Appears comfortable on ventilator. HEENT: Present: PERRL, Mucus Membranes Dry. Absent: Jaundice Neck: Present: Supple Neck, Midline Trachea, JVD/HJR, No Bruit Cardiac: Present: Regular Rhythm, Systolic Murmur, Tachycardia. Absent: Bradycardia Lungs: Present: Rales - Left, Rales - Right, No Wheezes Neuro: Present: Other (intubated but does nod head in response to questions, able to Yonny to command). Absent: Resting Tremor Abdomen: Present: Soft, Active Bowel Sounds. Absent: Ascites, Tender Skin: Present: Clear, warm, dry. Absent: Rash, Suspicious Lesions Musculoskeletal: Present: Decreased Range of Motion (intubated) Extremities: Present: No Edema, Normal Upper Extr. Pulses (2-3+ bilaterally), Normal Lower Extr. Pulses (2-3+ bilaterally), warm and dry today, Capillary Refill (improved). Absent: Petechiae Result/EKG - Labs CBC & BMP: 05/27/17 05:12 05/27/17 05:12 Lab Results: I have reviewed the past 24 hour labs Labs: Laboratory Results - last 24 hr 05/26/17 05/26/17 05/26/17 09:30 09:30 09:50 WBC RBC Hgb Hct MCV MCH MCHC RDW Plt Count MPV Neut % (Auto) Lymph % (Auto) [place] % (Auto) Eos % (Auto) Baso % (Auto) Neut # (Auto) Lymph # (Auto) [place] # (Auto) Eos # (Auto) Baso # (Auto) Immature Gran % Nucleated RBC % Immature Gran # Nucleated RBCs # Immature Plt Fraction ABG pH 7.237 L ABG pCO2 49.4 H ABG pO2 83.9 ABG HCO3 20.6 ABG Total CO2 22.1 L ABG O2 Saturation 94.3 L ABG Base Excess -7.1 L FiO2 Sodium Potassium Chloride Carbon Dioxide Anion Gap BUN Creatinine GFR Calculation BUN/Creatinine Ratio Glucose POC Glucose Hemoglobin A1c Calculated Osmolality Lactic Acid Calcium Magnesium Total Creatine Kinase CK-MB (CK-2) CK and CKMB Interp Troponin I B-Natriuretic Peptide Urine Color Yellow Urine Appearance Slightly hazy Urine pH 6.0 Ur Specific [place] 1.006 Urine Protein 100 Urine Glucose (UA) 50 Urine Ketones Negative Urine Blood Small Urine Nitrate Negative Urine Bilirubin Negative Urine Urobilinogen < 2.0 H Urine Leukocytes Small H Urine RBC 51 Urine WBC 28 Urine WBC Clumps Occasional Ur Squamous Epith Cells Occasional Urine Bacteria Occasional Hyaline Casts 1 Urine Mucus Occasional Ur Culture Indicated? Results to follow Urine Opiates Screen Positive H Ur Barbiturates Screen Negative Ur Phencyclidine Scrn Negative U Amphetamine/Methamph Negative U Benzodiazepines Scrn Negative U Cocaine Metab Screen Negative U Cannabinoids Screen Negative 05/26/17 05/26/17 05/26/17 10:33 10:35 10:48 WBC RBC Hgb Hct MCV MCH MCHC RDW Plt Count MPV Neut % (Auto) Lymph % (Auto) [place] % (Auto) Eos % (Auto) Baso % (Auto) Neut # (Auto) Lymph # (Auto) [place] # (Auto) Eos # (Auto) Baso # (Auto) Immature Gran % Nucleated RBC % Immature Gran # Nucleated RBCs # Immature Plt Fraction ABG pH ABG pCO2 ABG pO2 ABG HCO3 ABG Total CO2 ABG O2 Saturation ABG Base Excess FiO2 Sodium Potassium Chloride Carbon Dioxide Anion Gap BUN Creatinine GFR Calculation BUN/Creatinine Ratio Glucose POC Glucose 246 H Hemoglobin A1c Calculated Osmolality Lactic Acid 5.5 H Calcium Magnesium Total Creatine Kinase 170 CK-MB (CK-2) 11.7 H CK and CKMB Interp 6.9 Troponin I 3.930 H D B-Natriuretic Peptide Urine Color Urine Appearance Urine pH Ur Specific [place] Urine Protein Urine Glucose (UA) Urine Ketones Urine Blood Urine Nitrate Urine Bilirubin Urine Urobilinogen Urine Leukocytes Urine RBC Urine WBC Urine WBC Clumps Ur Squamous Epith Cells Urine Bacteria Hyaline Casts Urine Mucus Ur Culture Indicated? Urine Opiates Screen Ur Barbiturates Screen Ur Phencyclidine Scrn U Amphetamine/Methamph U Benzodiazepines Scrn U Cocaine Metab Screen U Cannabinoids Screen 05/26/17 05/26/17 05/26/17 10:48 15:19 16:54 WBC RBC Hgb Hct MCV MCH MCHC RDW Plt Count MPV Neut % (Auto) Lymph % (Auto) [place] % (Auto) Eos % (Auto) Baso % (Auto) Neut # (Auto) Lymph # (Auto) [place] # (Auto) Eos # (Auto) Baso # (Auto) Immature Gran % Nucleated RBC % Immature Gran # Nucleated RBCs # Immature Plt Fraction ABG pH ABG pCO2 ABG pO2 ABG HCO3 ABG Total CO2 ABG O2 Saturation ABG Base Excess FiO2 Sodium Potassium Chloride Carbon Dioxide Anion Gap BUN Creatinine GFR Calculation BUN/Creatinine Ratio Glucose POC Glucose 136 H Hemoglobin A1c 6.4 H Calculated Osmolality Lactic Acid Calcium Magnesium Total Creatine Kinase CK-MB (CK-2) CK and CKMB Interp Troponin I 6.070 H D B-Natriuretic Peptide Urine Color Urine Appearance Urine pH Ur Specific [place] Urine Protein Urine Glucose (UA) Urine Ketones Urine Blood Urine Nitrate Urine Bilirubin Urine Urobilinogen Urine Leukocytes Urine RBC Urine WBC Urine WBC Clumps Ur Squamous Epith Cells Urine Bacteria Hyaline Casts Urine Mucus Ur Culture Indicated? Urine Opiates Screen Ur Barbiturates Screen Ur Phencyclidine Scrn U Amphetamine/Methamph U Benzodiazepines Scrn U Cocaine Metab Screen U Cannabinoids Screen 05/26/17 05/26/17 05/27/17 22:50 23:45 03:22 WBC RBC Hgb Hct MCV MCH MCHC RDW Plt Count MPV Neut % (Auto) Lymph % (Auto) [place] % (Auto) Eos % (Auto) Baso % (Auto) Neut # (Auto) Lymph # (Auto) [place] # (Auto) Eos # (Auto) Baso # (Auto) Immature Gran % Nucleated RBC % Immature Gran # Nucleated RBCs # Immature Plt Fraction ABG pH 7.487 H ABG pCO2 33.7 L ABG pO2 370.0 H ABG HCO3 26.7 H ABG Total CO2 22.2 L ABG O2 Saturation 99.5 ABG Base Excess 2.6 H FiO2 100.00 Sodium Potassium Chloride Carbon Dioxide Anion Gap BUN Creatinine GFR Calculation BUN/Creatinine Ratio Glucose POC Glucose 155 H Hemoglobin A1c Calculated Osmolality Lactic Acid Calcium Magnesium Total Creatine Kinase 148 CK-MB (CK-2) 10.4 H CK and CKMB Interp 7.0 Troponin I 6.000 H B-Natriuretic Peptide Urine Color Urine Appearance Urine pH Ur Specific [place] Urine Protein Urine Glucose (UA) Urine Ketones Urine Blood Urine Nitrate Urine Bilirubin Urine Urobilinogen Urine Leukocytes Urine RBC Urine WBC Urine WBC Clumps Ur Squamous Epith Cells Urine Bacteria Hyaline Casts Urine Mucus Ur Culture Indicated? Urine Opiates Screen Ur Barbiturates Screen Ur Phencyclidine Scrn U Amphetamine/Methamph U Benzodiazepines Scrn U Cocaine Metab Screen U Cannabinoids Screen 05/27/17 05/27/17 05/27/17 05:12 05:12 05:12 WBC 14.9 H D RBC 4.36 Hgb 12.4 Hct 37.2 MCV 85.3 L MCH 28 MCHC 33.3 RDW 17.7 H Plt Count 245 MPV 10.6 Neut % (Auto) 90.4 H Lymph % (Auto) 5.2 L [place] % (Auto) 3.4 Eos % (Auto) 0.0 Baso % (Auto) 0.1 Neut # (Auto) 13.5 H Lymph # (Auto) 0.8 L [place] # (Auto) 0.5 Eos # (Auto) 0.0 Baso # (Auto) 0.0 Immature Gran % 0.9 Nucleated RBC % 0.0 Immature Gran # 0.13 Nucleated RBCs # 0.00 Immature Plt Fraction 0.0 ABG pH ABG pCO2 ABG pO2 ABG HCO3 ABG Total CO2 ABG O2 Saturation ABG Base Excess FiO2 Sodium 139 Potassium 4.1 Chloride 102 Carbon Dioxide 27 Anion Gap 14.1 BUN 28 H D Creatinine 1.10 H GFR Calculation 60 BUN/Creatinine Ratio 25.00 H Glucose 133 H POC Glucose Hemoglobin A1c Calculated Osmolality 284.5 Lactic Acid Calcium 8.9 Magnesium Total Creatine Kinase CK-MB (CK-2) CK and CKMB Interp Troponin I B-Natriuretic Peptide 3719 H Urine Color Urine Appearance Urine pH Ur Specific [place] Urine Protein Urine Glucose (UA) Urine Ketones Urine Blood Urine Nitrate Urine Bilirubin Urine Urobilinogen Urine Leukocytes Urine RBC Urine WBC Urine WBC Clumps Ur Squamous Epith Cells Urine Bacteria Hyaline Casts Urine Mucus Ur Culture Indicated? Urine Opiates Screen Ur Barbiturates Screen Ur Phencyclidine Scrn U Amphetamine/Methamph U Benzodiazepines Scrn U Cocaine Metab Screen U Cannabinoids Screen 05/27/17 05/27/17 05/27/17 05:12 05:12 05:45 WBC RBC Hgb Hct MCV MCH MCHC RDW Plt Count MPV Neut % (Auto) Lymph % (Auto) [place] % (Auto) Eos % (Auto) Baso % (Auto) Neut # (Auto) Lymph # (Auto) [place] # (Auto) Eos # (Auto) Baso # (Auto) Immature Gran % Nucleated RBC % Immature Gran # Nucleated RBCs # Immature Plt Fraction ABG pH ABG pCO2 ABG pO2 ABG HCO3 ABG Total CO2 ABG O2 Saturation ABG Base Excess FiO2 Sodium Potassium Chloride Carbon Dioxide Anion Gap BUN Creatinine GFR Calculation BUN/Creatinine Ratio Glucose POC Glucose 106 Hemoglobin A1c Calculated Osmolality Lactic Acid 1.5 Calcium Magnesium 1.5 L Total Creatine Kinase CK-MB (CK-2) CK and CKMB Interp Troponin I B-Natriuretic Peptide Urine Color Urine Appearance Urine pH Ur Specific [place] Urine Protein Urine Glucose (UA) Urine Ketones Urine Blood Urine Nitrate Urine Bilirubin Urine Urobilinogen Urine Leukocytes Urine RBC Urine WBC Urine WBC Clumps Ur Squamous Epith Cells Urine Bacteria Hyaline Casts Urine Mucus Ur Culture Indicated? Urine Opiates Screen Ur Barbiturates Screen Ur Phencyclidine Scrn U Amphetamine/Methamph U Benzodiazepines Scrn U Cocaine Metab Screen U Cannabinoids Screen 05/27/17 08:24 WBC RBC Hgb Hct MCV MCH MCHC RDW Plt Count MPV Neut % (Auto) Lymph % (Auto) [place] % (Auto) Eos % (Auto) Baso % (Auto) Neut # (Auto) Lymph # (Auto) [place] # (Auto) Eos # (Auto) Baso # (Auto) Immature Gran % Nucleated RBC % Immature Gran # Nucleated RBCs # Immature Plt Fraction ABG pH 7.453 H ABG pCO2 38.8 ABG pO2 79.7 L ABG HCO3 27.2 H ABG Total CO2 23.9 ABG O2 Saturation 95.1 ABG Base Excess 3.2 H FiO2 50.00 Sodium Potassium Chloride Carbon Dioxide Anion Gap BUN Creatinine GFR Calculation BUN/Creatinine Ratio Glucose POC Glucose Hemoglobin A1c Calculated Osmolality Lactic Acid Calcium Magnesium Total Creatine Kinase CK-MB (CK-2) CK and CKMB Interp Troponin I B-Natriuretic Peptide Urine Color Urine Appearance Urine pH Ur Specific [place] Urine Protein Urine Glucose (UA) Urine Ketones Urine Blood Urine Nitrate Urine Bilirubin Urine Urobilinogen Urine Leukocytes Urine RBC Urine WBC Urine WBC Clumps Ur Squamous Epith Cells Urine Bacteria Hyaline Casts Urine Mucus Ur Culture Indicated? Urine Opiates Screen Ur Barbiturates Screen Ur Phencyclidine Scrn U Amphetamine/Methamph U Benzodiazepines Scrn U Cocaine Metab Screen U Cannabinoids Screen - Diagnostic Findings Procedure: Chest x-ray: image reviewed by me, report reviewed by me - EKG EKG results: interpreted by me, no acute changes EKG shows: tachycardia (Mild sinus tachycardia, HR 90) Smitha Carrasco Attila, MD, personally performed the services described in this documentation, ascribed by Soumya Camara RN in my presence, and it is both accurate and complete .
--- NOTE | 2017-05-27 15:03 | Hospitalist Progress Note ---
Assessment and Plan (1) Acute respiratory failure Status: Acute Assessment and plan: Secondary to pulmonary edema due to CHF exacerbation Pulmonary assisting with vent Current Visit: Yes (2) Pulmonary edema Status: Acute Assessment and plan: Improving on CXR Current Visit: Yes (3) Severe mitral regurgitation Status: Chronic Assessment and plan: Failed to follow-up for repair outpatient Current Visit: Yes (4) Acute on chronic systolic CHF (congestive heart failure) Status: Chronic Assessment and plan: EF 10% BNP improving Diuresing well now Cardiology assisting Current Visit: Yes Hospitalist: Subjective Interval history: No acute events overnight. Yesterday patient with drop in blood pressure. She was started on dobutamine. She is intubated and sedated currently. She will wake up and follow commands when sedation is weaned. Exam - Constitutional Vitals: Period Temp Pulse Resp BP Sys/Smith Pulse Ox Last 24 Hr 97.5 F-98.9 F 81-105 1-22 84-151/52-76 10-100 General appearance: over weight - Head Head exam: Present: normocephalic, atraumatic - Eye Eye exam: Present: EOMI Pupils: Present: SURJIT - ENT ENT exam: Present: normal exam - Neck Neck exam: Present: normal inspection - Respiratory Respiratory exam: Present: clear to auscultation bilaterally - Cardiovascular Cardiovascular exam: Present: regular rate and rhythm - GI/Abdominal GI/Abdominal exam: Present: normal bowel sounds, soft. Absent: tenderness, rebound - Extremities Exam Extremities exam: Present: normal inspection - Back Exam Back exam: Present: normal inspection - Psychiatric Psychiatric exam: Absent: agitated, anxious - Skin Skin exam: Present: warm, intact Results - Labs CBC & BMP: 05/27/17 05:12 05/27/17 05:12
[2017-05-27] MEDS: MUPIROCIN 2% OINT 22 GM TUBE TOP SCH (20:30)
[2017-05-28] MEDS: INSULIN REGULAR 100 UNIT/ML SUBCUT SCH ×4 (00:43→18:14)
[2017-05-28] MEDS: PROPOFOL 1,000 MG/100 ML BOTTLE IV SCH ×4 (00:45→17:33)
[2017-05-28 04:03] LABS: ABG Base Excess 6.9 MMOL/L (-2.5-2.5); ABG HCO3 29.4 MMOL/L (20-26); ABG Oxygen Saturation 99.1 % (95-100); ABG PCO2 34.9 MM HG (35-48); ABG PH 7.544 (7.35-7.45); ABG PO2 191.2 MM HG (80-95); ABG TCO2 30.5 MMOL/L (23-27); Allen Test Positive; Pt O2 Delivery Device Ventilator
[2017-05-28 04:18] LABS: Basophils % 0.1 % (0.0-0.8); Eosinophils % 0.1 % (0.00-10.9); Hematocrit 39.5 VOL% (35.7-47.0); Hemoglobin 12.9 GM/DL (12.0-16.0); Immature Granulocytes % 0.4 %; Immature Granulocytes Absolute 0.07 #; Lymphocytes # 1.7 10*3/uL (1.4-4.0); Lymphocytes % 10.6 % (21.3-54.2); Mean Corpuscular HGB Conc 32.7 GM/DL (32-36); Mean Corpuscular Hemoglobin 29 PG (27-34); Mean Corpuscular Volume 87.8 FL (87-102); Mean Platelet Volume 10.8 FL (9.6-12.0); Neutrophils % 82.8 % (38.7-73.9); Platelet Count 261 T/CUMM (130-400); Red Cell Distribution Width 18.2 % (9.3-17.3); White Blood Count 15.7 T/CUMM (4-12)
[2017-05-28 04:44] LABS: Osmolality,Calculated 290.4 MOS/KG (273-304)
--- NOTE | 2017-05-28 06:47 | Pulmonology Progress Note ---
Pulmonary - PN: Subj Interval history: This 51-year-old woman had pulmonary edema and history of mitral regurgitation. She has acute respiratory failure. ABGs are much improved. Started a CPAP. Will change her to IMV and reduce her FiO2. Progress as tolerated with weaning trial. Exam (Progress Note) - Constitutional Vitals: Period Temp Pulse Resp BP Sys/Smith Pulse Ox Last 24 Hr 97.5 F-99.8 F 78-112 10-30 84-126/51-77 96-100 Exam: Patient is sedated. Vital signs normal. Pupils reactive. Orotracheal tube in place. Neck is supple no bruits. Chest sounds clear. Heart normal rate and rhythm grade 1/6 systolic murmur left sternal border. Abdomen soft no masses. Bowel sounds present. Extremities no clubbing cyanosis or edema. Results - Labs CBC & BMP: 05/28/17 04:00 05/28/17 04:00 Lab Results: I have reviewed the past 24 hour labs - Diagnostic Findings Procedure: Chest x-ray: image reviewed by me (Now essentially clear. ET tube good position.) Assessment and Plan (1) Acute respiratory failure Status: Acute Assessment and plan: This is improved and ABGs are better. Progress with weaning trials. Current Visit: Yes (2) Pulmonary edema Status: Acute Assessment and plan: She has severe cardiomyopathy with ejection fraction 10% and severe mitral regurgitation. Currently lungs look clear. Prognosis poor due to underlying heart disease. Current Visit: Yes (3) Severe mitral regurgitation Status: Chronic Assessment and plan: Noted on echo that she has moderate to severe eccentric mitral regurgitation. Current Visit: Yes (4) CHF (congestive heart failure) Status: Acute Assessment and plan: Acute on chronic systolic failure due to severe cardiomyopathy with ejection fraction 10%. Aggravated by mitral regurgitation. Presently she has been diuresed and lungs look pretty clear. Renal function well maintained. Current Visit: Yes
--- NOTE | 2017-05-28 08:06 | Cardiology Progress Note ---
Assessment and Plan (1) Acute respiratory failure Status: Acute Assessment and plan: 51 year old WF, PMHx HTN, NICM with acute on chronic systolic CHF, EF 10% and severe MR. She has been noncompliant in the past with illicit drug use and smoking, has been referred for mitral valve repair in past but has not followed up. Now admitted with acute pulmonary edema and respiratory failure, intubated and requiring IV Dobutamine infusion. Echo shows moderately dilated LV and severe global hypokinesis, EF 10%, moderate diastolic dysfunction, severe LA enlargement, mild pulm HTN with PAP 42.5 mmHg, severe MR with restriction of posterior mitral leaflet. EKG: SR/ST 1. CHF. She had hypotension earlier, which responded to dobutamine, but had frequent ventricular ectopy. Now, blood pressure better off pressor. Severely depressed systolic function, chronic severe MR. 2. Once blood pressure allows, we will try to reinitiate vasodilator treatment. 3. Elevated troponin. She has nonischemic cardiomyopathy, this could have been related to hypoperfusion. LA was also elevated. Doubt ACS 4. Severe MR. She did not follow up with instructions for corrective surgery in the past. If recovers from acute issues, this will need to be readdressed. Unfortunately, she now also has severe cardiomyopathy. 5. Continue diuresis and positive pressure ventilation for hemodynamic support 6. Poor prognosis Current Visit: Yes (2) Acute on chronic systolic CHF (congestive heart failure) Status: Chronic Assessment and plan: SEE PLAN OF CARE LISTED ABOVE. Current Visit: Yes (3) Elevated troponin Status: Acute Assessment and plan: SEE PLAN OF CARE LISTED ABOVE. Current Visit: Yes (4) Nonischemic cardiomyopathy Status: Chronic Assessment and plan: SEE PLAN OF CARE LISTED ABOVE. Current Visit: Yes (5) History of left bundle branch block Status: Chronic Assessment and plan: SEE PLAN OF CARE LISTED ABOVE. Current Visit: Yes (6) Hypothyroidism Status: Chronic Assessment and plan: SEE PLAN OF CARE LISTED ABOVE. Current Visit: Yes (7) Severe mitral regurgitation Status: Chronic Assessment and plan: SEE PLAN OF CARE LISTED ABOVE. Current Visit: Yes (8) Hypomagnesemia Status: Acute Assessment and plan: SEE PLAN OF CARE LISTED ABOVE. Current Visit: Yes Cardiology - PN: Subj Interval history: She diuresed well. Still on vent. Sinus rhythm, NSAT. Exam (Progress Note) - Constitutional Vitals: Period Temp Pulse Resp BP Sys/Smith Pulse Ox Last 24 Hr 97.5 F-99.8 F 78-112 10-30 84-126/51-77 96-100 General appearance: no acute distress, over weight, other (Unresponsive) - Head Head exam: Present: normal inspection, normocephalic - Eye Eye exam: Absent: periorbital swelling, laceration to eyelids - ENT ENT exam: Present: normal external ear exam - Neck Neck exam: Present: normal inspection. Absent: thyromegaly - Respiratory Respiratory exam: Present: clear to auscultation bilaterally. Absent: chest wall tenderness - Cardiovascular Cardiovascular exam: Present: regular rate and rhythm. Absent: JVD, systolic murmur - GI/Abdominal GI/Abdominal exam: Present: hypoactive bowel sounds. Absent: distended, guarding - Extremities Exam Extremities exam: Present: normal inspection, normal capillary refill, edema (1+ ) - Neurological Exam Neurological exam: Present: other (Unresponsive) - Skin Skin exam: Present: normal color, warm. Absent: cyanosis Result/EKG - Labs CBC & BMP: 05/28/17 04:00 05/28/17 04:00 Lab Results: I have reviewed the past 24 hour labs Labs: Laboratory Results - last 24 hr 05/27/17 05/27/17 05/27/17 08:24 11:39 17:34 WBC RBC Hgb Hct MCV MCH MCHC RDW Plt Count MPV Neut % (Auto) Lymph % (Auto) [place] % (Auto) Eos % (Auto) Baso % (Auto) Neut # (Auto) Lymph # (Auto) [place] # (Auto) Eos # (Auto) Baso # (Auto) Immature Gran % Nucleated RBC % Immature Gran # Nucleated RBCs # Immature Plt Fraction ABG pH 7.453 H ABG pCO2 38.8 ABG pO2 79.7 L ABG HCO3 27.2 H ABG Total CO2 23.9 ABG O2 Saturation 95.1 ABG Base Excess 3.2 H FiO2 50.00 Sodium Potassium Chloride Carbon Dioxide Anion Gap BUN Creatinine GFR Calculation BUN/Creatinine Ratio Glucose POC Glucose 138 H 125 H Calculated Osmolality Calcium Magnesium B-Natriuretic Peptide 05/27/17 05/28/17 05/28/17 23:59 03:30 04:00 WBC 15.7 H RBC 4.50 Hgb 12.9 Hct 39.5 MCV 87.8 MCH 29 MCHC 32.7 RDW 18.2 H Plt Count 261 MPV 10.8 Neut % (Auto) 82.8 H Lymph % (Auto) 10.6 L [place] % (Auto) 6.0 Eos % (Auto) 0.1 Baso % (Auto) 0.1 Neut # (Auto) 13.0 H Lymph # (Auto) 1.7 [place] # (Auto) 1.0 H Eos # (Auto) 0.0 Baso # (Auto) 0.0 Immature Gran % 0.4 Nucleated RBC % 0.0 Immature Gran # 0.07 Nucleated RBCs # 0.00 Immature Plt Fraction 0.0 ABG pH 7.544 H ABG pCO2 34.9 L ABG pO2 191.2 H ABG HCO3 29.4 H ABG Total CO2 30.5 H ABG O2 Saturation 99.1 ABG Base Excess 6.9 H FiO2 50.00 Sodium Potassium Chloride Carbon Dioxide Anion Gap BUN Creatinine GFR Calculation BUN/Creatinine Ratio Glucose POC Glucose 100 Calculated Osmolality Calcium Magnesium B-Natriuretic Peptide 05/28/17 05/28/17 05/28/17 04:00 04:00 04:00 WBC RBC Hgb Hct MCV MCH MCHC RDW Plt Count MPV Neut % (Auto) Lymph % (Auto) [place] % (Auto) Eos % (Auto) Baso % (Auto) Neut # (Auto) Lymph # (Auto) [place] # (Auto) Eos # (Auto) Baso # (Auto) Immature Gran % Nucleated RBC % Immature Gran # Nucleated RBCs # Immature Plt Fraction ABG pH ABG pCO2 ABG pO2 ABG HCO3 ABG Total CO2 ABG O2 Saturation ABG Base Excess FiO2 Sodium 140 Potassium 4.0 Chloride 99 Carbon Dioxide 34 H Anion Gap 11.0 BUN 42 H D Creatinine 1.40 H GFR Calculation 45 BUN/Creatinine Ratio 30.00 H Glucose 108 H POC Glucose Calculated Osmolality 290.4 Calcium 9.0 Magnesium 2.4 B-Natriuretic Peptide 1168 H 05/28/17 05:57 WBC RBC Hgb Hct MCV MCH MCHC RDW Plt Count MPV Neut % (Auto) Lymph % (Auto) [place] % (Auto) Eos % (Auto) Baso % (Auto) Neut # (Auto) Lymph # (Auto) [place] # (Auto) Eos # (Auto) Baso # (Auto) Immature Gran % Nucleated RBC % Immature Gran # Nucleated RBCs # Immature Plt Fraction ABG pH ABG pCO2 ABG pO2 ABG HCO3 ABG Total CO2 ABG O2 Saturation ABG Base Excess FiO2 Sodium Potassium Chloride Carbon Dioxide Anion Gap BUN Creatinine GFR Calculation BUN/Creatinine Ratio Glucose POC Glucose 105 Calculated Osmolality Calcium Magnesium B-Natriuretic Peptide - EKG EKG results: interpreted by me
[2017-05-28] MEDS: FUROSEMIDE 40 MG/4 ML VIAL IV SCH ×2 (08:27→16:35)
[2017-05-28] MEDS: GABAPENTIN 300 MG CAPSULE PO SCH ×2 (08:27→22:03)
[2017-05-28] MEDS: MUPIROCIN 2% OINT 22 GM TUBE TOP SCH ×2 (08:28→22:03)
--- NOTE | 2017-05-28 09:30 | XRay Report ---
History is Keofeed placement A Keofeed tube has been placed the tip in the distal stomach. The remainder of the exam is limited by technique Impression: Keofeed tube tip in the distal stomach PROCEDURE INTERPRETED AT [facility] DEPARTMENT OF RADIOLOGY Final Report Signed by: Dr. Nasreen Roldan
[2017-05-28] MEDS: MORPHINE 2 MG/1 ML SYRINGE IV PRN (10:00)
--- NOTE | 2017-05-28 10:31 | XRay Report ---
Portable chest. Indication: Shortness of breath. Comparison: Yesterday's exam. The heart is normal in size. The pulmonary vasculature is normal. There are hypoaeration changes at the lung bases. No consolidation. No pneumothorax. Endotracheal tube and nasogastric tube are in satisfactory position. Impression: Interval improvement. Mild basilar hypoaeration. PROCEDURE INTERPRETED AT [facility] DEPARTMENT OF RADIOLOGY Final Report Signed by: Dr. Cheyenne Roldan
[2017-05-28] MEDS: PANTOPRAZOLE 40 MG VIAL IV SCH (11:32)
[2017-05-28] MEDS: cefTRIAXone 1,000 MG in SODIUM CHLORIDE 0.9% 100 ML IV SCH (13:50)
--- NOTE | 2017-05-28 16:45 | Hospitalist Progress Note ---
Assessment and Plan (1) Acute respiratory failure Status: Acute Assessment and plan: Secondary to pulmonary edema due to CHF exacerbation Pulmonary assisting with vent Undergoing weaning trials Current Visit: Yes (2) Pulmonary edema Status: Acute Assessment and plan: Improving on CXR Current Visit: Yes (3) Severe mitral regurgitation Status: Chronic Assessment and plan: Failed to follow-up for repair outpatient Current Visit: Yes (4) Acute on chronic systolic CHF (congestive heart failure) Status: Chronic Assessment and plan: EF 10% BNP continues to improve Diuresing well now Cardiology assisting Current Visit: Yes Hospitalist: Subjective Interval history: No acute events overnight. Patient intubated and sedated this morning. She is undergoing weaning protocol. Exam - Constitutional Vitals: Period Temp Pulse Resp BP Sys/Smith Pulse Ox Last 24 Hr 97.4 F-99.8 F 78-94 10-27 87-129/48-86 97-100 General appearance: over weight - Head Head exam: Present: normocephalic, atraumatic - Eye Eye exam: Present: EOMI Pupils: Present: SURJIT - ENT ENT exam: Present: normal exam - Neck Neck exam: Present: normal inspection - Respiratory Respiratory exam: Present: clear to auscultation bilaterally. Absent: rhonchi, wheezes - Cardiovascular Cardiovascular exam: Present: regular rate and rhythm - GI/Abdominal GI/Abdominal exam: Present: normal bowel sounds, soft. Absent: tenderness, rebound - Extremities Exam Extremities exam: Present: normal inspection - Back Exam Back exam: Present: normal inspection - Neurological Exam Neurological exam: Present: alert, oriented X3 - Psychiatric Psychiatric exam: Present: normal affect, normal mood - Skin Skin exam: Present: warm, intact Results - Labs CBC & BMP: 05/28/17 04:00 05/28/17 04:00
[2017-05-29] MEDS: PROPOFOL 1,000 MG/100 ML BOTTLE IV SCH (02:20)
[2017-05-29 03:15] LABS: ABG Base Excess 9.2 MMOL/L (-2.5-2.5); ABG Oxygen Saturation 97.9 % (95-100); ABG PH 7.548 (7.35-7.45); ABG TCO2 27.1 MMOL/L (23-27); Allen Test Positive; Pt O2 Delivery Device Ventilator
[2017-05-29 04:52] LABS: Basophils % 0.1 % (0.0-0.8); Eosinophils # 0.1 10*3/uL (0.0-0.87); Eosinophils % 0.6 % (0.00-10.9); Hematocrit 41.8 VOL% (35.7-47.0); Hemoglobin 14.6 GM/DL (12.0-16.0); Immature Granulocytes % 0.7 %; Immature Granulocytes Absolute 0.07 #; Lymphocytes # 1.6 10*3/uL (1.4-4.0); Lymphocytes % 15.2 % (21.3-54.2); Mean Corpuscular HGB Conc 34.9 GM/DL (32-36); Mean Corpuscular Hemoglobin 31 PG (27-34); Mean Corpuscular Volume 88.2 FL (87-102); Mean Platelet Volume 11.6 FL (9.6-12.0); Monocytes # 0.8 10*3/uL (0.11-0.8); Neutrophils # 8.2 10*3/uL (1.4-7.4); Neutrophils % 76.4 % (38.7-73.9); Platelet Count 232 T/CUMM (130-400); Red Blood Count 4.74 MC/CUMM (3.8-5.5); White Blood Count 10.7 T/CUMM (4-12)
[2017-05-29 05:22] LABS: Calcium 8.2 MG/DL (8.5-10.1); Osmolality,Calculated 279.4 MOS/KG (273-304); Potassium 3.8 MMOL/L (3.5-5.1)
[2017-05-29] MEDS: INSULIN REGULAR 100 UNIT/ML SUBCUT SCH ×4 (05:53→18:18)
[2017-05-29] MEDS: LEVOTHYROXINE 50 MCG TABLET PO SCH (06:29)
--- NOTE | 2017-05-29 07:24 | Pulmonology Progress Note ---
Pulmonary - PN: Subj Interval history: This 51-year-old woman had pulmonary edema and history of mitral regurgitation. She has acute respiratory failure. ABGs are much improved. Started a CPAP. Will change her to IMV and reduce her FiO2. Progress as tolerated with weaning trial. 05/29/2017 patient doing quite well on CPAP's. Chest x-ray is clear. Will check ABGs and mechanics on CPAP this morning. Exam (Progress Note) - Constitutional Vitals: Period Temp Pulse Resp BP Sys/Smith Pulse Ox Last 24 Hr 97.4 F-99.1 F 76-94 10- 79-129/48-86 97-100 Exam: Patient is sedated. Vital signs normal. Pupils reactive. Orotracheal tube in place. Neck is supple no bruits. Chest sounds clear. Heart normal rate and rhythm grade 1/6 systolic murmur left sternal border. Abdomen soft no masses. Bowel sounds present. Extremities no clubbing cyanosis or edema. Results - Labs CBC & BMP: 05/29/17 04:22 05/29/17 04:22 Lab Results: I have reviewed the past 24 hour labs - Diagnostic Findings Procedure: Chest x-ray: image reviewed by me (Lungs are clear. ET tube good position.) Assessment and Plan (1) Acute respiratory failure Status: Acute Assessment and plan: This is improved and ABGs are better. Progress with weaning trials. 05/29/2017 respiratory failure appears to be due to congestive heart failure. Radiographically improved. We will see if we can get her weaned. Current Visit: Yes (2) Pulmonary edema Status: Acute Assessment and plan: She has severe cardiomyopathy with ejection fraction 10% and severe mitral regurgitation. Currently lungs look clear. Prognosis poor due to underlying heart disease. 05/29/17 chest x-ray is better. Proceed with weaning. Current Visit: Yes (3) Severe mitral regurgitation Status: Chronic Assessment and plan: Noted on echo that she has moderate to severe eccentric mitral regurgitation. Current Visit: Yes (4) CHF (congestive heart failure) Status: Acute Assessment and plan: Acute on chronic systolic failure due to severe cardiomyopathy with ejection fraction 10%. Aggravated by mitral regurgitation. Presently she has been diuresed and lungs look pretty clear. Renal function well maintained. 05/29/2017 severe cardiomyopathy and mitral regurgitation. Chest x-ray is clear. Renal function stable. Current Visit: Yes
[2017-05-29] MEDS: MORPHINE 2 MG/1 ML SYRINGE IV PRN ×2 (08:03→10:17)
[2017-05-29] MEDS: MUPIROCIN 2% OINT 22 GM TUBE TOP SCH ×2 (08:05→20:44)
[2017-05-29] MEDS: GABAPENTIN 300 MG CAPSULE PO SCH ×2 (08:05→20:44)
[2017-05-29] MEDS: FUROSEMIDE 40 MG/4 ML VIAL IV SCH ×2 (08:05→15:32)
--- NOTE | 2017-05-29 09:26 | Cardiology Progress Note ---
Assessment and Plan (1) Acute respiratory failure Status: Acute Assessment and plan: 51 year old WF, PMHx HTN, NICM with acute on chronic systolic CHF, EF 10% and severe MR. She has been noncompliant in the past with illicit drug use and smoking, has been referred for mitral valve repair in past but has not followed up. Now admitted with acute pulmonary edema and respiratory failure, intubated and requiring IV Dobutamine infusion. Echo shows moderately dilated LV and severe global hypokinesis, EF 10%, moderate diastolic dysfunction, severe LA enlargement, mild pulm HTN with PAP 42.5 mmHg, severe MR with restriction of posterior mitral leaflet. EKG: SR/ST 1. CHF. She had hypotension earlier, which responded to dobutamine, but had frequent ventricular ectopy. Now, blood pressure better off pressor. Severely depressed systolic function, chronic severe MR. she is diuresing well and doing reasonably well with positive pressure ventilatory support. 2. Once blood pressure allows, we will try to reinitiate vasodilator treatment. 3. Elevated troponin. She has nonischemic cardiomyopathy, this could have been related to hypoperfusion. LA was also elevated. Doubt ACS 4. Severe MR. She did not follow up with instructions for corrective surgery in the past. If recovers from acute issues, this will need to be readdressed. Unfortunately, she now also has severe cardiomyopathy. 5. Continue diuresis. if remains stable after extubation, may try vasodilators , as tolerated by blood pressure. I would hold off adding a beta-debra at this time 6. Poor prognosis Current Visit: Yes (2) Acute on chronic systolic CHF (congestive heart failure) Status: Chronic Assessment and plan: SEE PLAN OF CARE LISTED ABOVE. Current Visit: Yes (3) Elevated troponin Status: Acute Assessment and plan: SEE PLAN OF CARE LISTED ABOVE. Current Visit: Yes (4) Nonischemic cardiomyopathy Status: Chronic Assessment and plan: SEE PLAN OF CARE LISTED ABOVE. Current Visit: Yes (5) History of left bundle branch block Status: Chronic Assessment and plan: SEE PLAN OF CARE LISTED ABOVE. Current Visit: Yes (6) Hypothyroidism Status: Chronic Assessment and plan: SEE PLAN OF CARE LISTED ABOVE. Current Visit: Yes (7) Severe mitral regurgitation Status: Chronic Assessment and plan: SEE PLAN OF CARE LISTED ABOVE. Current Visit: Yes (8) Hypomagnesemia Status: Acute Assessment and plan: SEE PLAN OF CARE LISTED ABOVE. Current Visit: Yes Cardiology - PN: Subj Interval history: She is stable on the ventilator. The blood pressure remains borderline low. Diuresing well with IV Lasix. Exam (Progress Note) - Constitutional Vitals: Period Temp Pulse Resp BP Sys/Smith Pulse Ox Last 24 Hr 97.4 F-98.2 F 76-92 10-27 79-104/48-72 94-100 General appearance: normal weight, over weight - Head Head exam: Present: normal inspection. Absent: contusion, hematoma - Eye Eye exam: Absent: periorbital swelling, scleral icterus Pupils: Absent: dilated - ENT ENT exam: Present: normal external ear exam - Neck Neck exam: Present: normal inspection - Respiratory Respiratory exam: Present: clear to auscultation bilaterally. Absent: rhonchi, wheezes - Cardiovascular Cardiovascular exam: Present: regular rate and rhythm, systolic murmur. Absent : JVD - GI/Abdominal GI/Abdominal exam: Present: hypoactive bowel sounds. Absent: distended, guarding - Extremities Exam Extremities exam: Present: normal inspection, normal capillary refill, edema (1+ ) - Neurological Exam Neurological exam: Present: alert, other (She is responding to verbal stimuli) - Psychiatric Psychiatric exam: Absent: agitated, anxious - Skin Skin exam: Present: normal color, warm. Absent: cyanosis Result/EKG - Labs CBC & BMP: 05/29/17 04:22 05/29/17 04:22 Lab Results: I have reviewed the past 24 hour labs Labs: Laboratory Results - last 24 hr 05/28/17 05/28/17 05/28/17 11:48 18:09 23:24 WBC RBC Hgb Hct MCV MCH MCHC RDW Plt Count MPV Neut % (Auto) Lymph % (Auto) [place] % (Auto) Eos % (Auto) Baso % (Auto) Neut # (Auto) Lymph # (Auto) [place] # (Auto) Eos # (Auto) Baso # (Auto) Immature Gran % Nucleated RBC % Immature Gran # Nucleated RBCs # Immature Plt Fraction ABG pH ABG pCO2 ABG pO2 ABG HCO3 ABG Total CO2 ABG O2 Saturation ABG Base Excess FiO2 Sodium Potassium Chloride Carbon Dioxide Anion Gap BUN Creatinine GFR Calculation BUN/Creatinine Ratio Glucose POC Glucose 105 147 H 138 H Calculated Osmolality Calcium B-Natriuretic Peptide 0905/29/17 05/29/17 02:55 04:22 04:22 WBC 10.7 D RBC 4.74 Hgb 14.6 Hct 41.8 MCV 88.2 MCH 31 MCHC 34.9 RDW 18.0 H Plt Count 232 MPV 11.6 Neut % (Auto) 76.4 H Lymph % (Auto) 15.2 L [place] % (Auto) 7.0 Eos % (Auto) 0.6 Baso % (Auto) 0.1 Neut # (Auto) 8.2 H Lymph # (Auto) 1.6 [place] # (Auto) 0.8 Eos # (Auto) 0.1 Baso # (Auto) 0.0 Immature Gran % 0.7 Nucleated RBC % 0.0 Immature Gran # 0.07 Nucleated RBCs # 0.00 Immature Plt Fraction 0.0 ABG pH 7.548 H ABG pCO2 37.0 ABG pO2 109.0 H ABG HCO3 33.0 H ABG Total CO2 27.1 H ABG O2 Saturation 97.9 ABG Base Excess 9.2 H FiO2 40.00 Sodium 133 L Potassium 3.8 Chloride 90 L Carbon Dioxide 35 H Anion Gap 11.8 BUN 42 H Creatinine 1.20 H GFR Calculation 53 BUN/Creatinine Ratio 35.00 H Glucose 158 H POC Glucose Calculated Osmolality 279.4 Calcium 8.2 L B-Natriuretic Peptide 05/29/17 05/29/17 05/29/17 04:22 05:32 08:10 WBC RBC Hgb Hct MCV MCH MCHC RDW Plt Count MPV Neut % (Auto) Lymph % (Auto) [place] % (Auto) Eos % (Auto) Baso % (Auto) Neut # (Auto) Lymph # (Auto) [place] # (Auto) Eos # (Auto) Baso # (Auto) Immature Gran % Nucleated RBC % Immature Gran # Nucleated RBCs # Immature Plt Fraction ABG pH ABG pCO2 ABG pO2 ABG HCO3 ABG Total CO2 ABG O2 Saturation ABG Base Excess FiO2 Sodium Potassium Chloride Carbon Dioxide Anion Gap BUN Creatinine GFR Calculation BUN/Creatinine Ratio Glucose POC Glucose 148 H 144 H Calculated Osmolality Calcium B-Natriuretic Peptide 596 H - EKG EKG results: interpreted by me
[2017-05-29 09:27] LABS: Allen Test Positive; Pt O2 Delivery Device Ventilator
[2017-05-29 09:31] LABS: ABG Base Excess 8.8 MMOL/L (-2.5-2.5); ABG HCO3 32.5 MMOL/L (20-26); ABG Oxygen Saturation 97.8 % (95-100); ABG PCO2 47.4 MM HG (35-48); ABG PH 7.465 (7.35-7.45); ABG TCO2 28.8 MMOL/L (23-27)
[2017-05-29] MEDS: PANTOPRAZOLE 40 MG VIAL IV SCH (10:18)
--- NOTE | 2017-05-29 10:33 | XRay Report ---
Portable chest. Indication: Shortness of breath. Comparison: Yesterday's exam. The heart is mildly enlarged with left ventricular hypertrophy. Endotracheal tube and Keofeed tube are in satisfactory position. Mild atelectasis is present at the left lung base. The right lung demonstrates linear platelike atelectasis as well. No pneumothorax. No definite pleural effusion. Impression: Areas of basilar atelectasis. PROCEDURE INTERPRETED AT [facility] DEPARTMENT OF RADIOLOGY Final Report Signed by: Dr. Cheyenne Roldan
[2017-05-29] MEDS: cefTRIAXone 1,000 MG in SODIUM CHLORIDE 0.9% 100 ML IV SCH (14:00)
--- NOTE | 2017-05-29 16:20 | Hospitalist Progress Note ---
Assessment and Plan (1) Acute respiratory failure Status: Acute Assessment and plan: Secondary to pulmonary edema due to CHF exacerbation Pulmonary assisting with vent Extubated this morning Current Visit: Yes (2) Pulmonary edema Status: Acute Assessment and plan: Improving on CXR Current Visit: Yes (3) Severe mitral regurgitation Status: Chronic Assessment and plan: Failed to follow-up for repair outpatient Current Visit: Yes (4) Acute on chronic systolic CHF (congestive heart failure) Status: Chronic Assessment and plan: EF 10% BNP continues to improve Diuresing well now Cardiology assisting Current Visit: Yes Hospitalist: Subjective Interval history: No acute events overnight. Patient was extubated this morning. She denies sob. Exam - Constitutional Vitals: Period Temp Pulse Resp BP Sys/Smith Pulse Ox Last 24 Hr 97.4 F-98.2 F 76-90 10-26 79-137/52-103 94-100 General appearance: normal weight - Head Head exam: Present: normocephalic, atraumatic - Eye Eye exam: Present: EOMI Pupils: Present: SURJIT - ENT ENT exam: Present: normal exam - Neck Neck exam: Present: normal inspection - Respiratory Respiratory exam: Present: clear to auscultation bilaterally. Absent: wheezes - Cardiovascular Cardiovascular exam: Present: regular rate and rhythm - GI/Abdominal GI/Abdominal exam: Present: normal bowel sounds, soft. Absent: tenderness, rebound - Extremities Exam Extremities exam: Present: normal inspection - Back Exam Back exam: Present: normal inspection - Neurological Exam Neurological exam: Present: alert, oriented X3 - Psychiatric Psychiatric exam: Present: normal affect, normal mood - Skin Skin exam: Present: warm, intact Results - Labs CBC & BMP: 05/29/17 04:22 05/29/17 04:22
[2017-05-30] MEDS: INSULIN REGULAR 100 UNIT/ML SUBCUT SCH ×2 (00:44→06:33)
[2017-05-30] MEDS: MORPHINE 2 MG/1 ML SYRINGE IV PRN ×5 (04:47→23:51)
[2017-05-30] MEDS: LEVOTHYROXINE 50 MCG TABLET PO SCH (06:34)
[2017-05-30 06:37] LABS: Basophils # 0.1 10*3/uL (0.0-0.2); Basophils % 0.5 % (0.0-0.8); Eosinophils # 0.5 10*3/uL (0.0-0.87); Eosinophils % 4.5 % (0.00-10.9); Hematocrit 49.8 VOL% (35.7-47.0); Hemoglobin 16.1 GM/DL (12.0-16.0); Immature Granulocytes % 0.5 %; Immature Granulocytes Absolute 0.05 #; Lymphocytes # 2.5 10*3/uL (1.4-4.0); Lymphocytes % 23.3 % (21.3-54.2); Mean Corpuscular HGB Conc 32.3 GM/DL (32-36); Mean Corpuscular Hemoglobin 28 PG (27-34); Mean Corpuscular Volume 87.4 FL (87-102); Mean Platelet Volume 11.4 FL (9.6-12.0); Monocytes # 0.9 10*3/uL (0.11-0.8); Monocytes % 8.7 % (1.7-12.7); Neutrophils # 6.8 10*3/uL (1.4-7.4); Neutrophils % 62.5 % (38.7-73.9); Platelet Count 210 T/CUMM (130-400); Red Cell Distribution Width 17.5 % (9.3-17.3); White Blood Count 10.9 T/CUMM (4-12)
[2017-05-30 07:01] LABS: Calcium 9.1 MG/DL (8.5-10.1); Magnesium 2.3 MG/DL (1.8-2.4); Osmolality,Calculated 271.5 MOS/KG (273-304); Potassium 3.4 MMOL/L (3.5-5.1)
[2017-05-30 07:50] LABS: Phosphorous 4.3 MG/DL (2.5-4.9); Prealbumin 26.7 MG/DL (20-40)
[2017-05-30] MEDS: FUROSEMIDE 40 MG/4 ML VIAL IV SCH ×2 (08:46→15:31)
[2017-05-30] MEDS: GABAPENTIN 300 MG CAPSULE PO SCH ×2 (08:46→20:39)
[2017-05-30] MEDS: MUPIROCIN 2% OINT 22 GM TUBE TOP SCH ×2 (08:49→22:13)
--- NOTE | 2017-05-30 09:08 | Pulmonology Progress Note ---
Pulmonary - PN: Subj Interval history: Patient is a 51-year-old lady that has a history of having severe mitral insufficiency. She apparently has a very severe cardiomyopathy. She came in with acute pulmonary edema has been on the ventilator. Her CHF cleared nicely and she was extubated yesterday. She says she feels well now. She is not short of breath. She wants to try to move around a little more. Exam (Progress Note) - Constitutional Vitals: Period Temp Pulse Resp BP Sys/Smith Pulse Ox Last 24 Hr 98.1 F-98.5 F 78-92 10-97 98-148/56-103 92-98 Exam: General appearance: no distress (The patient is alert and in no distress now.) - Head Head exam: Present: normal inspection, normocephalic - Eye Eye exam: Present: EOMI. Absent: scleral icterus Pupils: Present: SURJIT - ENT ENT exam: Present: Unremarkable - Neck Neck exam: Absent: lymphadenopathy, thyromegaly - Respiratory Respiratory exam: Present: She has good breath sounds now and her lungs are clear now. - Cardiovascular Cardiovascular exam: Present: regular rate and rhythm, systolic murmur - GI/Abdominal GI/Abdominal exam: Present: soft. Absent: distended, organomegaly, tenderness - Extremities Exam Extremities exam: Absent: calf tenderness, edema - Neurological Exam Neurological exam: Present: She is alert and moving everything well. - Psychiatric Psychiatric exam: Absent: anxious - Skin Skin exam: Present: Extremities are warm now with good color. Results - Labs CBC & BMP: 05/30/17 04:52 05/30/17 04:51 - Diagnostic Findings Procedure: Chest x-ray: image reviewed by me, report reviewed by me (Chest x- ray is clear) Assessment and Plan (1) Acute respiratory failure Status: Acute Assessment and plan: Patient is doing well now and her respiratory failure has resolved. Current Visit: Yes (2) Pulmonary edema Status: Acute Assessment and plan: Patient has had pulmonary edema that is cleared now. She is breathing comfortably. Current Visit: Yes (3) Severe mitral regurgitation Status: Chronic Assessment and plan: Patient apparently has severe mitral insufficiency and came in with congestive heart failure. She is much improved now Current Visit: Yes (4) Cardiomyopathy Status: Acute Assessment and plan: She has a significant cardiomyopathy but is doing better at present. Current Visit: Yes
--- NOTE | 2017-05-30 10:51 | Cardiology Progress Note ---
Jax Carrasco Vanessa, RN, am scribing for, and in the presence of, Chilango Recinos MD 10:51. Assessment and Plan - Time spent with patient Time spent with patient: Greater than 30 minutes (1) Acute on chronic systolic CHF (congestive heart failure) Status: Chronic Assessment and plan: 51 year old WF, PMHx HTN, NICM with acute on chronic systolic CHF, EF 10% and severe MR. She has been noncompliant in the past with illicit drug use and smoking, has been referred for mitral valve repair in past but has not followed up. Now admitted with acute pulmonary edema and respiratory failure, requiring intubation and Dobutamine infusion (now discontinued). Echo shows moderately dilated LV and severe global hypokinesis, EF 10%, moderate diastolic dysfunction, severe LA enlargement, mild pulm HTN with PAP 42.5 mmHg, severe MR with restriction of posterior mitral leaflet. EKG: SR/ST 1. CHF- Initially hypotensive, required IV Dobutamine but experienced significant ventricular ectopy, and this is off now. Acute respiratory failure improved with aggressive diuresis. Severely depressed systolic function and chronic, severe mitral regurgitation (current echo was read as moderate to severe mitral regurgitation) . Continue diuresis, Lasix 40 mg IV twice daily. 2. Abnormal troponin-troponin peaked 6.070. This is unlikely to represent ACS given she had a widely patent coronary arteries per LHC by Dr. Martinez in July 2013 at [facility]. 3. Severe MR- Known history of MR and has been referred for MVR, failed to keep appointment. Can readdress this after acute issue resolved. She would not be a candidate for an open surgical procedure given her low EF. 4. Hypertension- Has actually been hypotensive this admission. Not currently receiving antihypertensives. 4. Hypothyroidism-continue thyroid supplement. 5. Hypokalemia-replete per IV protocol PRN. 6. Renal insufficiency-creatinine 1.5 on admit now improved to 1.0 with GFR 67. 7. UTI-final culture positive for E. coli. IV antibiotics per attending physician. 8. She was on Coreg 25 when she came in; start back at 3.125 mg twice daily 9. She reports she did paperwork recently to get follow-up at [facility] arrange because of her lack of medical insurance. Current Visit: Yes (2) Acute respiratory failure Status: Acute Assessment and plan: SEE PLAN OF CARE LISTED ABOVE. Current Visit: Yes (3) Elevated troponin Status: Acute Assessment and plan: SEE PLAN OF CARE LISTED ABOVE. Current Visit: Yes (4) Nonischemic cardiomyopathy Status: Chronic Assessment and plan: SEE PLAN OF CARE LISTED ABOVE. Current Visit: Yes (5) History of left bundle branch block Status: Chronic Assessment and plan: SEE PLAN OF CARE LISTED ABOVE. Current Visit: Yes (6) Hypothyroidism Status: Chronic Assessment and plan: SEE PLAN OF CARE LISTED ABOVE. Current Visit: Yes (7) Severe mitral regurgitation Status: Chronic Assessment and plan: SEE PLAN OF CARE LISTED ABOVE. Current Visit: Yes (8) Hypokalemia Status: Acute Assessment and plan: SEE PLAN OF CARE LISTED ABOVE. Current Visit: Yes (9) UTI (urinary tract infection) Status: Acute Assessment and plan: SEE PLAN OF CARE LISTED ABOVE. Current Visit: Yes Cardiology - PN: Subj Interval history: [facility] SPECIALIST: DR. MARTINEZ (HAS NOT SEEN SINCE 2013) SUMMARY: Ms. Najera, 51 year old WF, PMHx hypertension and nonischemic cardiomyopathy with EF 10-15%, intermittent LBBB. Also has severe mitral valve insufficiency and acute on chronic systolic CHF, NYHA class II-III. Other history includes tobaccoism and illicit drug use. She was last seen by Dr. Martinez in October 2013 and was noted to have numerous hospitalization for recurrent CHF. Consideration for AICD placement at that time but patient would have to demonstrate medical compliance and cessation of illicit drugs. Afterward, patient lost to follow up. Cardiac cath in July 2013 at [facility] per Dr. Martinez with widely patent coronary arteries. Patient admitted to ICU on 05/26 after she woke up and was experiencing severe shortness of breath. By the time she arrived to the ED, patient was acidotic, diaphoretic, and was intubated. Initially hypertensive but after arrival to ICU, hypotensive with SBP 60s and BNP greater than 5000 with CTNI trending up, peaking at 6.070. CXR with significant pulmonary edema. Pulmonary embolus ruled out by VQ lung scan. Being treated for acute respiratory failure and acute on chronic systolic congestive heart failure with severely reduced EF 10%, and UTI with culture positive for E. coli. Patient extubated on the morning of 05/29. Echocardiogram moderately dilated LV and severe global hypokinesis, EF 10%, and moderate diastolic dysfunction, severe LA enlargement, mild pulm HTN with PA 42.5 mmHg, severe MR with restriction of posterior mitral leaflet. 2016: Diuresed very well over weekend. No acute respiratory difficulties since extubation yesterday morning. Not requiring supplemental oxygen chest x-ray and BNP significantly improved. SBP 105-120 mmHg range with some transient hypotension, 85/70. Sinus rhythm, heart rate 80s. She is reporting some chest pain, says it does not worsen with inspiration. It is reproducible by exam. Also reports "pain all over the body". She is somewhat tearful and slightly anxious this morning. Planned for transfer to private room later today. Exam (Progress Note) - Constitutional Vitals: Period Temp Pulse Resp BP Sys/Smith Pulse Ox Last 24 Hr 98.1 F-98.5 F 78-92 10-97 98-148/56-103 92-98 Exam: General: Present:appears chronically ill; overweight. appears comfortable. Cooperative. No acute distress. HEENT: Present: PERRL, Mucus Membranes Dry. Absent: Jaundice Neck: Present: Supple Neck, Midline Trachea, JVD/HJR, No Bruit Cardiac: Present: Regular rate and rhythm, Systolic Murmur, Tachycardia. Absent : irregular rhythm Lungs: Present: Overall clear to auscultation bilaterally. No Wheezes, no rhonchi, no rales Neuro: Present: Other alert and oriented. Able to follow commands and move all extremities, grossly intact. Absent: Resting Tremor Abdomen: Present: Soft, Active Bowel Sounds. Absent: Ascites, Tender Skin: Present: Clear, warm, dry, normal color. Absent: Rash, Suspicious Lesions Musculoskeletal: Present: Full range of motion Extremities: Present: No Edema, Normal Upper Extr. Pulses (2-3+ bilaterally), Normal Lower Extr. Pulses (2-3+ bilaterally), warm and dry today, Capillary Refill is normal. Absent: Petechiae Result/EKG - Labs CBC & BMP: 05/30/17 04:52 05/30/17 04:51 Lab Results: I have reviewed the past 24 hour labs Labs: Laboratory Results - last 24 hr 05/29/17 05/29/17 05/29/17 09:20 11:44 17:56 WBC RBC Hgb Hct MCV MCH MCHC RDW Plt Count MPV Neut % (Auto) Lymph % (Auto) [place] % (Auto) Eos % (Auto) Baso % (Auto) Neut # (Auto) Lymph # (Auto) [place]y # (Auto) Eos # (Auto) Baso # (Auto) Immature Gran % Nucleated RBC % Immature Gran # Nucleated RBCs # Immature Plt Fraction ABG pH 7.465 H ABG pCO2 47.4 ABG pO2 116.0 H ABG HCO3 32.5 H ABG Total CO2 28.8 H ABG O2 Saturation 97.8 ABG Base Excess 8.8 H FiO2 30.00 Sodium Potassium Chloride Carbon Dioxide Anion Gap BUN Creatinine GFR Calculation BUN/Creatinine Ratio Glucose POC Glucose 119 H 149 H Calculated Osmolality Calcium Phosphorus Magnesium B-Natriuretic Peptide Prealbumin 05/29/17 05/30/17 05/30/17 23:53 04:51 04:52 WBC 10.9 RBC 5.70 H D Hgb 16.1 H Hct 49.8 H MCV 87.4 MCH 28 MCHC 32.3 RDW 17.5 H Plt Count 210 MPV 11.4 Neut % (Auto) 62.5 Lymph % (Auto) 23.3 D[place]y % (Auto) 8.7 Eos % (Auto) 4.5 Baso % (Auto) 0.5 Neut # (Auto) 6.8 Lymph # (Auto) 2.5 D[place]y # (Auto) 0.9 H Eos # (Auto) 0.5 Baso # (Auto) 0.1 Immature Gran % 0.5 Nucleated RBC % 0.0 Immature Gran # 0.05 Nucleated RBCs # 0.00 Immature Plt Fraction 0.0 ABG pH ABG pCO2 ABG pO2 ABG HCO3 ABG Total CO2 ABG O2 Saturation ABG Base Excess FiO2 Sodium 132 L Potassium 3.4 L Chloride 91 L Carbon Dioxide 31 Anion Gap 13.4 BUN 36 H Creatinine 1.00 GFR Calculation 67 BUN/Creatinine Ratio 36.00 H Glucose 97 POC Glucose 144 H Calculated Osmolality 271.5 L Calcium 9.1 Phosphorus Magnesium 2.3 B-Natriuretic Peptide Prealbumin 05/30/17 05/30/17 04:52 04:52 WBC RBC Hgb Hct MCV MCH MCHC RDW Plt Count MPV Neut % (Auto) Lymph % (Auto) [place] % (Auto) Eos % (Auto) Baso % (Auto) Neut # (Auto) Lymph # (Auto) D[place]y # (Auto) Eos # (Auto) Baso # (Auto) Immature Gran % Nucleated RBC % Immature Gran # Nucleated RBCs # Immature Plt Fraction ABG pH ABG pCO2 ABG pO2 ABG HCO3 ABG Total CO2 ABG O2 Saturation ABG Base Excess FiO2 Sodium Potassium Chloride Carbon Dioxide Anion Gap BUN Creatinine GFR Calculation BUN/Creatinine Ratio Glucose POC Glucose Calculated Osmolality Calcium Phosphorus 4.3 Magnesium B-Natriuretic Peptide 596 H Prealbumin 26.7 - Diagnostic Findings Procedure: Chest x-ray: image reviewed by me, report reviewed by me - EKG EKG results: interpreted by me, no acute changes EKG shows: sinus rhythm (Heart rate 80s) Grisel Carrasco Randall Scott, MD, personally performed the services described in this documentation, ascribed by Soumya Camara RN in my presence, and it is both accurate and complete .
--- NOTE | 2017-05-30 11:07 | Hospitalist Progress Note ---
Assessment and Plan (1) Acute respiratory failure Status: Acute Assessment and plan: Secondary to pulmonary edema due to CHF exacerbation Pulmonary assisting Extubated 05/29/17 Doing well from a respiratory stand point Current Visit: Yes (2) Pulmonary edema Status: Acute Assessment and plan: Improving Current Visit: Yes (3) Severe mitral regurgitation Status: Chronic Assessment and plan: Failed to follow-up for repair outpatient Reports that she is working on insurance issues Current Visit: Yes (4) Acute on chronic systolic CHF (congestive heart failure) Status: Chronic Assessment and plan: EF 10% BNP continues to improve Diuresing well now Cardiology assisting Current Visit: Yes (5) UTI (urinary tract infection) Status: Acute Assessment and plan: Urine culture with E.coli Today will complete treatment with Rocephin Current Visit: Yes Hospitalist: Subjective Interval history: No acute events overnight. Patient has done well since extubation yesterday. She complains of pain all over her body. Will transfer to telemetry. Exam - Constitutional Vitals: Period Temp Pulse Resp BP Sys/Smith Pulse Ox Last 24 Hr 98.1 F-98.5 F 78-92 10-97 84-148/56-88 92-98 General appearance: normal weight - Head Head exam: Present: normocephalic, atraumatic - Eye Eye exam: Present: EOMI Pupils: Present: SURJIT - ENT ENT exam: Present: normal exam - Neck Neck exam: Present: normal inspection - Respiratory Respiratory exam: Present: clear to auscultation bilaterally. Absent: wheezes - Cardiovascular Cardiovascular exam: Present: regular rate and rhythm - GI/Abdominal GI/Abdominal exam: Present: normal bowel sounds, soft. Absent: tenderness, rebound - Extremities Exam Extremities exam: Present: normal inspection - Back Exam Back exam: Present: normal inspection - Neurological Exam Neurological exam: Present: alert, oriented X3 - Psychiatric Psychiatric exam: Present: normal affect, normal mood - Skin Skin exam: Present: warm, intact Results - Labs CBC & BMP: 05/30/17 04:52 05/30/17 04:51
[2017-05-30] MEDS: PANTOPRAZOLE 40 MG TABLET PO SCH (11:08)
[2017-05-30] MEDS: CARVEDILOL 3.125 MG TABLET PO SCH ×2 (11:08→20:40)
[2017-05-30] MEDS ORDERED: POTASSIUM CHLORIDE RIDER 10 MEQ in PREMIX 1 EACH IV PRN (11:10)
[2017-05-30] MEDS: POTASSIUM CHLORIDE 20 MEQ TABLET PO PRN ×3 (11:19→15:31)
[2017-05-30 12:21] LABS: Barbiturates Screen,Urine Negative (Negative); Benzodiazepines Screen,Urine Negative (Negative); Cannabinoid Screen,Urine Negative (Negative); Opiate Screen,Urine Positive (Negative); Phencyclidine Screen,Urine Negative (Negative)
[2017-05-30] MEDS: cefTRIAXone 1,000 MG in SODIUM CHLORIDE 0.9% 100 ML IV SCH (13:02)
[2017-05-31] MEDS: MORPHINE 2 MG/1 ML SYRINGE IV PRN ×5 (03:44→20:51)
[2017-05-31 05:25] LABS: Basophils # 0.1 10*3/uL (0.0-0.2); Basophils % 0.5 % (0.0-0.8); Eosinophils # 0.7 10*3/uL (0.0-0.87); Eosinophils % 5.4 % (0.00-10.9); Hematocrit 45.6 VOL% (35.7-47.0); Hemoglobin 14.7 GM/DL (12.0-16.0); Immature Granulocytes % 0.4 %; Immature Granulocytes Absolute 0.05 #; Lymphocytes # 2.9 10*3/uL (1.4-4.0); Lymphocytes % 21.8 % (21.3-54.2); Mean Corpuscular HGB Conc 32.2 GM/DL (32-36); Mean Corpuscular Hemoglobin 28 PG (27-34); Mean Corpuscular Volume 88.2 FL (87-102); Mean Platelet Volume 11.1 FL (9.6-12.0); Monocytes # 1.4 10*3/uL (0.11-0.8); Monocytes % 10.2 % (1.7-12.7); Neutrophils # 8.2 10*3/uL (1.4-7.4); Neutrophils % 61.7 % (38.7-73.9); Platelet Count 272 T/CUMM (130-400); Red Blood Count 5.17 MC/CUMM (3.8-5.5); Red Cell Distribution Width 16.8 % (9.3-17.3); White Blood Count 13.2 T/CUMM (4-12)
[2017-05-31 05:53] LABS: Calcium 9.1 MG/DL (8.5-10.1); Magnesium 2.1 MG/DL (1.8-2.4); Osmolality,Calculated 273.4 MOS/KG (273-304); Potassium 4.2 MMOL/L (3.5-5.1)
[2017-05-31] MEDS: LEVOTHYROXINE 50 MCG TABLET PO SCH (07:01)
--- NOTE | 2017-05-31 07:31 | Pulmonology Progress Note ---
Pulmonary - PN: Subj Interval history: Patient is a 51-year-old lady that has a history of having severe mitral insufficiency. She apparently has a very severe cardiomyopathy. She came in with acute pulmonary edema has been on the ventilator. Her CHF cleared nicely and she came off the ventilator okay. She is not having any trouble with her breathing now. She is eating and moving around okay. Overall she feels well. She wants to go home today. Exam (Progress Note) - Constitutional Vitals: Period Temp Pulse Resp BP Sys/Smith Pulse Ox Last 24 Hr 98 F-98.5 F 80-97 15-24 84-120/62-82 92-96 Exam: General appearance: no distress (The patient is alert and in no distress now. She is moving around well without any shortness of breath.) - Head Head exam: Present: normal inspection, normocephalic - Eye Eye exam: Present: EOMI. Absent: scleral icterus Pupils: Present: SURJIT - ENT ENT exam: Present: Unremarkable - Neck Neck exam: Absent: lymphadenopathy, thyromegaly - Respiratory Respiratory exam: Present: She has good breath sounds now and her lungs are clear now. - Cardiovascular Cardiovascular exam: Present: regular rate and rhythm, systolic murmur - GI/Abdominal GI/Abdominal exam: Present: soft. Absent: distended, organomegaly, tenderness - Extremities Exam Extremities exam: Absent: calf tenderness, edema - Neurological Exam Neurological exam: Present: She is alert and moving everything well. - Psychiatric Psychiatric exam: Absent: anxious - Skin Skin exam: Present: Extremities are warm now with good color. Results - Labs CBC & BMP: 05/31/17 05:03 05/31/17 05:03 Assessment and Plan (1) Acute respiratory failure Status: Acute Assessment and plan: Patient is doing well now and her respiratory failure has resolved. She is not having any breathing problems at present. She can go from a pulmonary standpoint. Current Visit: Yes (2) Pulmonary edema Status: Acute Assessment and plan: Patient has had pulmonary edema that is cleared now. She is breathing comfortably. She continues to do well. Current Visit: Yes (3) Severe mitral regurgitation Status: Chronic Assessment and plan: Patient apparently has severe mitral insufficiency and came in with congestive heart failure. She is doing well now and will need to follow-up at [facility]. She needs to have a valve replacement. Current Visit: Yes (4) Cardiomyopathy Status: Acute Assessment and plan: She has a significant cardiomyopathy but is doing better at present. Current Visit: Yes
[2017-05-31] MEDS: FUROSEMIDE 40 MG/4 ML VIAL IV SCH (08:02)
[2017-05-31] MEDS: PANTOPRAZOLE 40 MG TABLET PO SCH (08:08)
[2017-05-31] MEDS: GABAPENTIN 300 MG CAPSULE PO SCH ×2 (08:09→20:50)
[2017-05-31] MEDS: CARVEDILOL 3.125 MG TABLET PO SCH ×2 (08:09→20:51)
[2017-05-31] MEDS: MUPIROCIN 2% OINT 22 GM TUBE TOP SCH ×2 (10:09→20:51)
--- NOTE | 2017-05-31 11:01 | Discharge Summary ---
<rAnel Rodríguez - Last Filed: 05/31/17 10:47> Hospital Course - Hospital Course Hospital Course: This is [id number] female that presented to the ED at [facility] on the morning of May 26, 2017 for the evaluation of a sudden onset of shortness of breath. The patient has a medical history significant for hypertension, congestive heart failure, valvular insufficiency, nonischemic cardiomyopathy, severe mitral valve regurgitation, acute on chronic systolic congestive heart failure, hypothyroidism, and anxiety. No surgical history was available at the time of ED presentation. At the time of ED presentation, the patient was noted to be experiencing profound respiratory distress and had been placed on BiPAP during transport. The patient's respiratory status remained less than favorable prompting an emergent intubation immediately upon arrival. The daughter who was present at bedside reported that her mom experienced an acute onset around 645 on the morning of presentation. She reported that she was preparing to go to school on the morning of the encounter when the episode began. She reported that she heard her mother moving around in the home and proceeded to call out for her explaining to her that she was having difficulty breathing. She instructed her daughter to call for emergency assistance however, the daughter noted that her mother had become cyanotic. The patient was subsequently transferred to [facility] via EMS for further evaluation. The patient was noted to be in extreme respiratory distress prompting emergency intubation upon arrival. Labs were obtained which were remarkable for lactic acid of 11.5, glucose 314, BNP greater than 5000, creatinine 1.5, troponin III 0.93, carbon dioxide 16, hemoglobin A1c 6.4, and albumin 3.3. Arterial blood gas reported pH at 7.237, PCO2 49.4, and CO2 of 22.1. Urinalysis reported a small amount of urine blood, small amount of urine leukocytes, urine urobilinogen greater than 2.0, urine RBC 51, urine WBC 28, hyaline cast 1, and the presence of occasional urine WBC clumps, urine squamous epithelial cells, and urine bacteria. Chest x-ray was significant for cardiac decompensation. Kidneys ureter and bladder was essentially unremarkable. Echocardiogram significant for moderately dilated left ventricle without hypertrophy, severe global hypokinesis, estimated left ventricular ejection fraction 10%, and the presence of great 3 diastolic dysfunction was noted. In addition, mild right atrial and severe left atrial enlargement was noted. The posterior mitral leaflet was restricted in mobility. Moderate to severe eccentric mitral regurgitation and mild pulmonary height hypertension was noted. CT brain without contrast was unremarkable for any evidence of acute process or other significant abnormality. Nuclear medicine ventilation/perfusion lung scan reported low probability for pulmonary embolic disease. The patient was admitted to the critical care setting for continuation of care. Intravenous diuresis and empiric antibiotic coverage was initiated. Due to the severity of the patient's presenting condition, a cardiology and pulmonology consultation was requested. The patient was evaluated by cardiology and recommendations were given. Diuresis and positive pressure ventilation was continued for hemodynamic support. The patient was evaluated by pulmonary and recommendations were given. The patient's condition gradually improved. The patient was subsequently extubated on May 29, 2017. The patient's condition continued to improve greatly. She experienced a bump in her creatinine today, spironolactone was discontinued. She will need to follow-up with [facility] for evaluation of mitral valve repair/replacement. The patient's condition is stable. She has not experienced any significant overnight events. Today, we feel that she is indeed appropriate for discharge to follow-up with her primary care physician and maintainer sewer and waterworks as directed. Specialty Discharge - Follow Up or Referrals Follow up with: Reena Martinez MD [Physician] - 2 Weeks (Follow up at [facility] with EKG, BMP, Mag) Discharge Plan - Discharge Data Disposition: Disch To Home/Self Care - Discharge Medications New Furosemide Tab [Lasix Tab] 40 mg PO BID DIURETIC #60 tablet Valsartan/Hctz 80-12.5 [Diovan Hct 80-12.5] 1 tablet PO DAILY #30 tablet Carvedilol [Coreg] 3.125 mg PO BID #60 tablet Continue clonazePAM [Clonazepam] 2 mg PO BID PRN PRN Reason: Anxiety Gabapentin 300 mg PO BID Levothyroxine Tab [Synthroid Tab] 50 mcg PO DAILY@0700 Hydrocodone/Acetaminophen [[place] 10-325 Tablet] 1 each PO TID PRN PRN Reason: Pain Discontinued Carvedilol [Carvedilol] 25 mg PO BID Furosemide Tab [Lasix Tab] 40 mg PO DAILY Spironolactone [Aldactone] 25 mg PO DAILY Losartan Potassium [Cozaar] 100 mg PO QAM - Follow Up or Referral Follow Up: Reena Martinez MD [Physician] - 2 Weeks (Follow up at [facility] with EKG, BMP, Mag) - Forms/Instructions Exam - Constitutional Vitals: Period Temp Pulse Resp BP Sys/Smith Pulse Ox Last 24 Hr 97.3 F-98.2 F 71-86 18-18 101-131/45-72 94-98 Discharge Results Labs on day of discharge: Labs from last 24 hours 06/01/17 04:48 Sodium 132 L Potassium 3.8 Chloride 93 L Carbon Dioxide 27 Anion Gap 15.8 H BUN 38 H Creatinine 1.40 H GFR Calculation 44 BUN/Creatinine Ratio 27.00 H Glucose 129 H Calculated Osmolality 274.5 Calcium 8.3 L Magnesium 2.0 DS: Provider Date of admission: 05/26/17 09:26 Primary care physician: . No PCP Attending physician on admission: Darline Bartholomew MD Consults: 05/26/17 10:18 Consult to Physician [CONS] Routine Comment: Consulting Provider: Campbell Alberto Consulting Provider Notified: Yes Consult to Specialist Group: Pulmonology Person Notified: bang Date Notified: 05/26/17 Time Notified: 10:25 Consult to Physician [CONS] Routine Comment: Consulting Provider: Cardiology - [facility] Consulting Provider Notified: Yes Consult to Specialist Group: Cardiology Person Notified: KAY Date Notified: 05/26/17 Time Notified: 10:30 05/26/17 13:24 Consult to [facility], Educator [CONS] Routine Reason for Gang Ripsaw Operator: Diabetes Education Discharging clinician: Arnel Rodríguez CNP <Darline Bartholomew - Last Filed: 06/01/17 14:39> Diagnosis - Discharge Diagnosis (1) Acute respiratory failure Status: Resolved (2) Pulmonary edema Status: Resolved (3) Severe mitral regurgitation Status: Chronic (4) Acute on chronic systolic CHF (congestive heart failure) Status: Chronic (5) UTI (urinary tract infection) Status: Resolved Discharge Plan - Discharge Data Condition at Discharge: Stable Discharge Diet: heart healthy Activity: increase activity as tolerated Hygiene: no restrictions Weight Bearing at Discharge: weight bear as tolerated Driving: no restrictions Contact your physician if you experience:: fever over 101, Shortness of breath Exam - Constitutional General appearance: normal weight - Head Head exam: Present: normocephalic, atraumatic - Eye Eye exam: Present: EOMI Pupils: Present: SURJIT - ENT ENT exam: Present: normal exam - Neck Neck exam: Present: normal inspection - Respiratory Respiratory exam: Present: clear to auscultation bilaterally - Cardiovascular Cardiovascular exam: Present: regular rate and rhythm - GI/Abdominal GI/Abdominal exam: Present: normal bowel sounds, soft. Absent: tenderness, rebound - Extremities Exam Extremities exam: Present: normal inspection - Back Exam Back exam: Present: normal inspection - Neurological Exam Neurological exam: Present: alert, oriented X3 - Psychiatric Psychiatric exam: Present: normal affect, normal mood - Skin Skin exam: Present: warm, intact DS: Provider Expected date of discharge: 06/01/17
--- NOTE | 2017-05-31 12:01 | Hospitalist Progress Note ---
Assessment and Plan (1) Acute respiratory failure Status: Resolved Assessment and plan: Secondary to pulmonary edema due to CHF exacerbation Pulmonary assisting Extubated 05/29/17 Doing well from a respiratory stand point Current Visit: Yes (2) Pulmonary edema Status: Acute Assessment and plan: Improving Current Visit: Yes (3) Severe mitral regurgitation Status: Chronic Assessment and plan: Failed to follow-up for repair outpatient Reports that she is working on insurance issues Current Visit: Yes (4) Acute on chronic systolic CHF (congestive heart failure) Status: Chronic Assessment and plan: EF 10% BNP continues to improve Diuresing well now Cardiology assisting Would like to switch to po lasix today Plan for discharge tomorrow Current Visit: Yes (5) UTI (urinary tract infection) Status: Acute Assessment and plan: Urine culture with E.coli Completed course of rocephin for treatment Current Visit: Yes Hospitalist: Subjective Interval history: No acute events overnight. Patient looks comfortable lying almost flat in bed. She denies sob. She wants to go home today. Exam - Constitutional Vitals: Period Temp Pulse Resp BP Sys/Smith Pulse Ox Last 24 Hr 97.6 F-98.5 F 81-97 19-24 86-119/62-82 94-96 General appearance: normal weight - Head Head exam: Present: normocephalic, atraumatic - Eye Eye exam: Present: EOMI Pupils: Present: SURJIT - ENT ENT exam: Present: normal exam - Neck Neck exam: Present: normal inspection - Respiratory Respiratory exam: Present: clear to auscultation bilaterally. Absent: wheezes - Cardiovascular Cardiovascular exam: Present: regular rate and rhythm - GI/Abdominal GI/Abdominal exam: Present: normal bowel sounds, soft. Absent: tenderness, rebound - Extremities Exam Extremities exam: Present: normal inspection - Back Exam Back exam: Present: normal inspection - Neurological Exam Neurological exam: Present: alert, oriented X3 - Psychiatric Psychiatric exam: Present: normal affect, normal mood - Skin Skin exam: Present: warm, intact Results - Labs CBC & BMP: 05/31/17 05:03 05/31/17 05:03
--- NOTE | 2017-05-31 12:38 | Cardiology Progress Note ---
Jax Carrasco Vanessa, RN, am scribing for, and in the presence of, Chilango Recinos MD 11:14. Assessment and Plan - Time spent with patient Time spent with patient: Greater than 30 minutes (1) Acute on chronic systolic CHF (congestive heart failure) Status: Chronic Assessment and plan: 51 year old WF, PMHx HTN, NICM with acute on chronic systolic CHF, EF 10% and severe MR. She has been noncompliant in the past with illicit drug use and smoking, has been referred for mitral valve repair in past but has not followed up. Now admitted with acute pulmonary edema and respiratory failure, requiring intubation and Dobutamine infusion (now discontinued). Echo shows moderately dilated LV and severe global hypokinesis, EF 10%, moderate diastolic dysfunction, severe LA enlargement, mild pulm HTN with PAP 42.5 mmHg, severe MR with restriction of posterior mitral leaflet. EKG: SR/ST 1. CHF- Initially hypotensive, required IV Dobutamine but experienced significant ventricular ectopy, and this is off now. Acute respiratory failure improved with aggressive diuresis. Severely depressed systolic function and chronic, severe mitral regurgitation (current echo was read as moderate to severe mitral regurgitation). Transition to PO Lasix 40 mg daily. 2. Abnormal troponin-troponin peaked 6.070. This is unlikely to represent ACS given she had a widely patent coronary arteries per LHC by Dr. Martinez in July 2013 at [facility]. 3. Severe MR- Known history of MR and has been referred for MVR, failed to keep appointment. Can readdress this after acute issue resolved. She would not be a candidate for an open surgical procedure given her low EF. 4. Hypertension-well controlled today. Will review and adjust medication regimen. 4. Hypothyroidism-continue thyroid supplement. 5. Hypokalemia-resolved today. Follow BMP and replete as needed. 6. Renal insufficiency-improved since admission, creatinine 1.0, GFR 67 today per 7. UTI-final culture positive for E. coli. IV antibiotics per attending physician. 8. She was on Coreg 25 when she came in. Tolerating 3.125 mg twice daily dose. - -Consider increasing? 9. Add Diovan HCT 80/12.5 mg PO today. Was on spironolactone 25 mg PO daily a home-resume today. 10. Noncompliance- Spoke in depth with patient regarding extreme importance of complying with medication regimen. Voices understanding and verbally agrees to this. In speaking with patient, she admitted she quit taking Lasix approximately 1 month ago due aggravation from frequent urination. Also, she "ran out" of beta debra and other medications a couple weeks ago and did not refill. 11. From cardiac standpoint, ok for transfer to floor today when bed available. 12. Will need follow up with Dr. Martinez after discharge home. Reports she is still completing paperwork necessary for [facility] cardiology referral which was made because of her lack of medical insurance. May 31, 2017: 1. Ms. Najera is hemodynamically stable without dysrhythmia and is tolerating low-dose Coreg 3.125 mg twice daily as well as ARB and spironolactone. 2. Would change to p.o. Lasix 3. She admits to noncompliance with her medication ("I quit taking Lasix months ago since I was tired of going to the bathroom and ran out of Coreg a couple weeks ago"; I suspect this a major part of her pulmonary edema presentation. 4. Previous history of illicit drug use; her urine tox screen was essentially normal here but was obtained late in her course. We discussed her need to avoid all smoking. 5. She can be transferred to the floor from a cardiac standpoint. 6. I think would best to observe her overnight after changing to p.o. Lasix given her EF of 10% and severe mitral regurgitation, although she is clearly doing well clinically, and is anxious for discharge. 7. She is still in the process of being cleared to get cardiology follow-up at [facility]. We will schedule her follow-up with Dr. Martinez, and if she obtains clearance for this and wants to be seen there she can cancel that visit. Current Visit: Yes (2) Acute respiratory failure Status: Resolved Assessment and plan: SEE PLAN OF CARE LISTED ABOVE. Current Visit: Yes (3) Elevated troponin Status: Acute Assessment and plan: SEE PLAN OF CARE LISTED ABOVE. Current Visit: Yes (4) Nonischemic cardiomyopathy Status: Chronic Assessment and plan: SEE PLAN OF CARE LISTED ABOVE. Current Visit: Yes (5) History of left bundle branch block Status: Chronic Assessment and plan: SEE PLAN OF CARE LISTED ABOVE. Current Visit: Yes (6) Hypothyroidism Status: Chronic Assessment and plan: SEE PLAN OF CARE LISTED ABOVE. Current Visit: Yes (7) Severe mitral regurgitation Status: Chronic Assessment and plan: SEE PLAN OF CARE LISTED ABOVE. Current Visit: Yes (8) UTI (urinary tract infection) Status: Acute Assessment and plan: SEE PLAN OF CARE LISTED ABOVE. Current Visit: Yes Cardiology - PN: Subj Interval history: MOTION PICTURE CAMERAMAN: DR. MARTINEZ (HAS NOT SEEN SINCE 2013) SUMMARY: Ms. Najera, 51 year old WF, PMHx hypertension and nonischemic cardiomyopathy with EF 10-15%, intermittent LBBB. Also has severe mitral valve insufficiency and acute on chronic systolic CHF, NYHA class II-III. Other history includes tobaccoism and illicit drug use. She was last seen by Dr. Martinez in October 2013 and was noted to have numerous hospitalization for recurrent CHF. Consideration for AICD placement at that time but patient would have to demonstrate medical compliance and cessation of illicit drugs. Afterward, patient lost to follow up. Cardiac cath in July 2013 at [facility] per Dr. Martinez with widely patent coronary arteries. Patient admitted to ICU on 05/26 after she woke up and was experiencing severe shortness of breath. By the time she arrived to the ED, patient was acidotic, diaphoretic, and was intubated. Initially hypertensive but after arrival to ICU, hypotensive with SBP 60s and BNP greater than 5000 with CTNI trending up, peaking at 6.070. CXR with significant pulmonary edema. Pulmonary embolus ruled out by VQ lung scan. Being treated for acute respiratory failure and acute on chronic systolic congestive heart failure with severely reduced EF 10%, and UTI with culture positive for E. coli. Patient extubated on the morning of 05/29. Echocardiogram moderately dilated LV and severe global hypokinesis, EF 10%, and moderate diastolic dysfunction, severe LA enlargement, mild pulm HTN with PA 42.5 mmHg, severe MR with restriction of posterior mitral leaflet. 2016: Patient appears to feel much better this morning, and she is up in the chair without respiratory distress or other need noted. Reports she continues to have "pain all over" but it is improved from yesterday. Denies chest discomfort , dyspnea, palpitations, presyncope, or other cardiac complaint. Vitals stable overnight with SBP 90-120 mmHg. Sinus rhythm, HR 80s without ectopy or dysrhythmia. Labs reviewed. WBC 13,200. Sodium 133. Potassium 4.2. Magnesium 2.1. From a cardiac standpoint, she is stable for discharge home today. She reports that she has filled out necessary paperwork in order to see a staffing specialist at [facility] in [place]. The severity of her medical condition and extreme importance of following up with cardiology was reiterated with her today at bedside. She voices understanding, and says that she will definitely be compliant with follow-up going forward. Exam (Progress Note) - Constitutional Vitals: Period Temp Pulse Resp BP Sys/Smith Pulse Ox Last 24 Hr 97.6 F-98.5 F 81-97 19-24 86-119/62-82 92-96 Exam: General: Present:appears chronically ill; overweight. appears comfortable. Pleasant and cooperative today. No acute distress. HEENT: Present: PERRL, Mucus Membranes Dry. Absent: Jaundice Neck: Present: Supple Neck, Midline Trachea, JVD/HJR, No Bruit Cardiac: Present: Regular rate and rhythm, Systolic Murmur, mild tachycardia. Absent: irregular rhythm Lungs: Present: Overall clear to auscultation bilaterally. No Wheezes, no rhonchi, no rales Neuro: Present: Other alert and oriented. Able to follow commands and move all extremities, grossly intact. Absent: Resting Tremor Abdomen: Present: Soft, Active Bowel Sounds. Absent: Ascites, Tender Skin: Present: Clear, warm, dry, normal color. Absent: Rash, Suspicious Lesions Musculoskeletal: Present: Full range of motion Extremities: Present: No Edema, Normal Upper Extr. Pulses (2-3+ bilaterally), Normal Lower Extr. Pulses (2-3+ bilaterally), warm and dry today, Capillary Refill is normal. Absent: Petechiae Result/EKG - Labs CBC & BMP: 05/31/17 05:03 05/31/17 05:03 Lab Results: I have reviewed the past 24 hour labs Labs: Laboratory Results - last 24 hr 05/30/17 05/30/17 05/31/17 11:00 21:53 05:03 WBC 13.2 H RBC 5.17 Hgb 14.7 Hct 45.6 MCV 88.2 MCH 28 MCHC 32.2 RDW 16.8 Plt Count 272 D MPV 11.1 Neut % (Auto) 61.7 Lymph % (Auto) 21.8 Noble % (Auto) 10.2 Eos % (Auto) 5.4 Baso % (Auto) 0.5 Neut # (Auto) 8.2 H Lymph # (Auto) 2.9 Noble # (Auto) 1.4 H Eos # (Auto) 0.7 Baso # (Auto) 0.1 Immature Gran % 0.4 Nucleated RBC % 0.0 Immature Gran # 0.05 Nucleated RBCs # 0.00 Immature Plt Fraction 0.0 Sodium Potassium 4.0 Chloride Carbon Dioxide Anion Gap BUN Creatinine GFR Calculation BUN/Creatinine Ratio Glucose Calculated Osmolality Calcium Magnesium Urine Opiates Screen Positive H Ur Barbiturates Screen Negative Ur Phencyclidine Scrn Negative U Amphetamine/Methamph Negative U Benzodiazepines Scrn Negative U Cocaine Metab Screen Negative U Cannabinoids Screen Negative 05/31/17 05:03 WBC RBC Hgb Hct MCV MCH MCHC RDW Plt Count MPV Neut % (Auto) Lymph % (Auto) Noble % (Auto) Eos % (Auto) Baso % (Auto) Neut # (Auto) Lymph # (Auto) Noble # (Auto) Eos # (Auto) Baso # (Auto) Immature Gran % Nucleated RBC % Immature Gran # Nucleated RBCs # Immature Plt Fraction Sodium 133 L Potassium 4.2 Chloride 95 L Carbon Dioxide 30 Anion Gap 12.2 BUN 30 H Creatinine 1.00 GFR Calculation 67 BUN/Creatinine Ratio 30.00 H Glucose 132 H Calculated Osmolality 273.4 Calcium 9.1 Magnesium 2.1 Urine Opiates Screen Ur Barbiturates Screen Ur Phencyclidine Scrn U Amphetamine/Methamph U Benzodiazepines Scrn U Cocaine Metab Screen U Cannabinoids Screen - EKG EKG results: interpreted by me, no acute changes EKG shows: sinus rhythm Grisel Carrasco Randall Scott, MD, personally performed the services described in this documentation, ascribed by Soumya Camara RN in my presence, and it is both accurate and complete .
[2017-05-31] MEDS: VALSARTAN/HCTZ 80-12.5 MG TABLET PO SCH (12:55)
[2017-05-31] MEDS: SPIRONOLACTONE 25 MG TABLET PO SCH (12:55)
[2017-05-31] MEDS: FUROSEMIDE 40 MG TABLET PO SCH (16:05)
[2017-06-01] MEDS: MORPHINE 2 MG/1 ML SYRINGE IV PRN ×3 (01:14→09:45)
[2017-06-01 06:03] LABS: Calcium 8.3 MG/DL (8.5-10.1); Osmolality,Calculated 274.5 MOS/KG (273-304); Potassium 3.8 MMOL/L (3.5-5.1)
[2017-06-01] MEDS: LEVOTHYROXINE 50 MCG TABLET PO SCH (06:28)
--- NOTE | 2017-06-01 07:27 | EKG Report ---
Stationary ECG Study [facility] Test Date: 06/01/2017 7:28:50 AM Pat Name: JOVANY EARL Department: Room: 275 Gender: F Journeyman Molder: JONATHAN : 1965 Requested by: Chilango Hernández Order Number: [id number] Reading MD: ANANTH BURLESON Intervals [place] Rate: 63 P: 59 PA: 158 QRS: 26 QRSD: 88 T: 231 QT: 484 QTc: 491 Interpretive Statements SINUS RHYTHM at 63 bpm POSSIBLE LEFT ATRIAL ENLARGEMENTE ST DEVIATION AND MODERATE T-WAVE ABNORMALITY, CONSIDER ISCHEMIA Electronically Signed On 06-04-17 12:11:53 CDT by ANANTH BURLESON [email or web address]
[2017-06-01] MEDS: FUROSEMIDE 40 MG TABLET PO SCH ×2 (09:46→16:41)
[2017-06-01] MEDS: CARVEDILOL 3.125 MG TABLET PO SCH (09:46)
[2017-06-01] MEDS: GABAPENTIN 300 MG CAPSULE PO SCH (09:46)
[2017-06-01] MEDS: SPIRONOLACTONE 25 MG TABLET PO SCH (09:46)
[2017-06-01] MEDS: VALSARTAN/HCTZ 80-12.5 MG TABLET PO SCH (09:46)
[2017-06-01] MEDS: PANTOPRAZOLE 40 MG TABLET PO SCH (09:46)
[2017-06-01 11:53] VITALS: BP 113/63
[2017-06-01] MEDS: MUPIROCIN 2% OINT 22 GM TUBE TOP SCH (12:20)
--- NOTE | 2017-06-01 14:28 | Cardiology Progress Note ---
Jax Carrasco Vanessa, RN, am scribing for, and in the presence of, Chilango Recinos MD 14:28. Assessment and Plan - Time spent with patient Time spent with patient: Greater than 30 minutes (1) Acute on chronic systolic CHF (congestive heart failure) Status: Chronic Assessment and plan: 51 year old WF, PMHx HTN, NICM with acute on chronic systolic CHF, EF 10% and severe MR. She has been noncompliant in the past with illicit drug use and smoking, has been referred for mitral valve repair in past but has not followed up. Now admitted with acute pulmonary edema and respiratory failure, requiring intubation and Dobutamine infusion (now discontinued). Echo shows moderately dilated LV and severe global hypokinesis, EF 10%, moderate diastolic dysfunction, severe LA enlargement, mild pulm HTN with PAP 42.5 mmHg, severe MR with restriction of posterior mitral leaflet. EKG: SR/ST 1. CHF- Initially hypotensive, required IV Dobutamine but experienced significant ventricular ectopy, and this is off now. Acute respiratory failure improved with aggressive diuresis. Severely depressed systolic function and chronic, severe mitral regurgitation (current echo was read as moderate to severe mitral regurgitation). Transition to PO Lasix 40 mg daily. 2. Abnormal troponin-troponin peaked 6.070. This is unlikely to represent ACS given she had a widely patent coronary arteries per LHC by Dr. Martinez in July 2013 at [facility]. 3. Severe MR- Known history of MR and has been referred for MVR, failed to keep appointment. Can readdress this after acute issue resolved. She would not be a candidate for an open surgical procedure given her low EF. 4. Hypertension-well controlled today. Will review and adjust medication regimen. 4. Hypothyroidism-continue thyroid supplement. 5. Hypokalemia-resolved today. Follow BMP and replete as needed. 6. Renal insufficiency-improved since admission, creatinine 1.0, GFR 67 today per 7. UTI-final culture positive for E. coli. IV antibiotics per attending physician. 8. She was on Coreg 25 when she came in. Tolerating 3.125 mg twice daily dose. - -Consider increasing? 9. Add Diovan HCT 80/12.5 mg PO today. Was on spironolactone 25 mg PO daily a home-resume today. 10. Noncompliance- Spoke in depth with patient regarding extreme importance of complying with medication regimen. Voices understanding and verbally agrees to this. In speaking with patient, she admitted she quit taking Lasix approximately 1 month ago due aggravation from frequent urination. Also, she "ran out" of beta debra and other medications a couple weeks ago and did not refill. 11. From cardiac standpoint, ok for transfer to floor today when bed available. 12. Will need follow up with Dr. Martinez after discharge home. Reports she is still completing paperwork necessary for [facility] cardiology referral which was made because of her lack of medical insurance. May 31, 2017: 1. Ms. Najera is hemodynamically stable without dysrhythmia and is tolerating low-dose Coreg 3.125 mg twice daily as well as ARB and spironolactone. 2. Would change to p.o. Lasix 3. She admits to noncompliance with her medication ("I quit taking Lasix months ago since I was tired of going to the bathroom and ran out of Coreg a couple weeks ago"; I suspect this a major part of her pulmonary edema presentation. 4. Previous history of illicit drug use; her urine tox screen was essentially normal here but was obtained late in her course. We discussed her need to avoid all smoking. 5. She can be transferred to the floor from a cardiac standpoint. 6. I think would best to observe her overnight after changing to p.o. Lasix given her EF of 10% and severe mitral regurgitation, although she is clearly doing well clinically, and is anxious for discharge. 7. She is still in the process of being cleared to get cardiology follow-up at [facility]. We will schedule her follow-up with Dr. Martinez, and if she obtains clearance for this and wants to be seen there she can cancel that visit. June 01, 2017: 1. Remains hemodynamically stable, and BP is tolerant of valsartan HCTZ, carvedilol, spironolactone 2. CHF-good urine output after transition to PO Lasix twice daily yesterday. Creatinine did trend upward, 1.4 today. No overt s/s heart failure. Stop spironolactone. 3. Hypertension-chronic well controlled. 4. Previous history of illicit drug use and smoking. Reiterated importance of abstaining from polysubstance abuse and all smoking. 5. Noncompliance-reiterated importance of compliance with medications and follow-up. She voices intention to do this. 6. Schedule follow-up with Dr. Martinez at [facility] clinic. Says she is still in the process of completing paperwork for [facility] cardiology referral, and she must go home first in order to mail paperwork. Can cancel follow-up appointment with Dr. Martinez if/when patient obtains appointment at [facility]. 7. Very anxious for discharge home today. Requesting "Martin 10" Addendum: Ms. Najera reports being asymptomatic and is walking around without difficulty. I stressed at length her need to not miss any medications, to keep follow-up appointments. Given her creatinine is slightly up this morning since starting spironolactone, will discontinue it. Current Visit: Yes (2) Acute respiratory failure Status: Resolved Assessment and plan: SEE PLAN OF CARE LISTED ABOVE. Current Visit: Yes (3) Elevated troponin Status: Acute Assessment and plan: SEE PLAN OF CARE LISTED ABOVE. Current Visit: Yes (4) Nonischemic cardiomyopathy Status: Chronic Assessment and plan: SEE PLAN OF CARE LISTED ABOVE. Current Visit: Yes (5) History of left bundle branch block Status: Chronic Assessment and plan: SEE PLAN OF CARE LISTED ABOVE. Current Visit: Yes (6) Hypothyroidism Status: Chronic Assessment and plan: SEE PLAN OF CARE LISTED ABOVE. Current Visit: Yes (7) Severe mitral regurgitation Status: Chronic Assessment and plan: SEE PLAN OF CARE LISTED ABOVE. Current Visit: Yes (8) UTI (urinary tract infection) Status: Acute Assessment and plan: SEE PLAN OF CARE LISTED ABOVE. Current Visit: Yes Cardiology - PN: Subj Interval history: HUMAN SERVICE TECHNICIAN: DR. MARTINEZ (HAS NOT SEEN SINCE 2013) SUMMARY: Ms. Najera, 51 year old WF, PMHx hypertension and nonischemic cardiomyopathy with EF 10-15%, intermittent LBBB. Also has severe mitral valve insufficiency and acute on chronic systolic CHF, NYHA class II-III. Other history includes tobaccoism and illicit drug use. She was last seen by Dr. Martinez in October 2013 and was noted to have numerous hospitalization for recurrent CHF. Consideration for AICD placement at that time but patient would have to demonstrate medical compliance and cessation of illicit drugs. Afterward, patient lost to follow up. Cardiac cath in July 2013 at [facility] per Dr. Martinez with widely patent coronary arteries. Patient admitted to ICU on 05/26 after she woke up and was experiencing severe shortness of breath. By the time she arrived to the ED, patient was acidotic, diaphoretic, and was intubated. Initially hypertensive but after arrival to ICU, hypotensive with SBP 60s and BNP greater than 5000 with CTNI trending up, peaking at 6.070. CXR with significant pulmonary edema. Pulmonary embolus ruled out by VQ lung scan. Being treated for acute respiratory failure and acute on chronic systolic congestive heart failure with severely reduced EF 10%, and UTI with culture positive for E. coli. Patient extubated on the morning of 05/29. Echocardiogram moderately dilated LV and severe global hypokinesis, EF 10%, and moderate diastolic dysfunction, severe LA enlargement, mild pulm HTN with PA 42.5 mmHg, severe MR with restriction of posterior mitral leaflet. 2016: No acute changes in status since transfer to telemetry floor yesterday. Awake and alert this afternoon without respiratory distress. No dyspnea. She is reporting some chest soreness, and is slightly reproducible with exam. States she is "just ready to go home" and that is all that is wrong with her today. States, "I just want my Martin 10, and I want to go home." Reiterated importance of medication compliance with not only pain medications, but also with cardiac medications. Declines need for new prescriptions for medications at discharge. Says she has plenty "laying around the house." She says she will comply with medicines and follow up. Paperwork for [facility] referral is not completed yet; apparently needs to go home to mail these papers. BP 115/65. Sinus rhythm, HR 70s. Labs reviewed. Potassium 3.8. Magnesium 2.0. Creatinine 1.4, GFR 44 (1.0, 67 previously). Exam (Progress Note) - Constitutional Vitals: Period Temp Pulse Resp BP Sys/Smith Pulse Ox Last 24 Hr 97.3 F-98.2 F 71-86 18-18 101-131/45-72 94-98 Exam: General: Present:appears chronically ill; overweight. appears comfortable. Pleasant and cooperative today. No acute distress. HEENT: Present: PERRL, Mucus Membranes Dry. Absent: Jaundice Neck: Present: Supple Neck, Midline Trachea, JVD/HJR, No Bruit Cardiac: Present: Regular rate and rhythm, Systolic Murmur, mild tachycardia. Absent: irregular rhythm Lungs: Present: Overall clear to auscultation bilaterally. No Wheezes, no rhonchi, no rales Neuro: Present: Other alert and oriented. Able to follow commands and move all extremities, grossly intact. Absent: Resting Tremor Abdomen: Present: Soft, Active Bowel Sounds. Absent: Ascites, Tender Skin: Present: Clear, warm, dry, normal color. Absent: Rash, Suspicious Lesions Musculoskeletal: Present: Full range of motion Extremities: Present: No Edema, Normal Upper Extr. Pulses (2-3+ bilaterally), Normal Lower Extr. Pulses (2-3+ bilaterally), warm and dry today, Capillary Refill is normal. Absent: Petechiae Psych: Slightly anxious today. Not combative. Result/EKG - Labs CBC & BMP: 05/31/17 05:03 06/01/17 04:48 Lab Results: I have reviewed the past 24 hour labs Labs: Laboratory Results - last 24 hr 06/01/17 04:48 Sodium 132 L Potassium 3.8 Chloride 93 L Carbon Dioxide 27 Anion Gap 15.8 H BUN 38 H Creatinine 1.40 H GFR Calculation 44 BUN/Creatinine Ratio 27.00 H Glucose 129 H Calculated Osmolality 274.5 Calcium 8.3 L Magnesium 2.0 - EKG EKG results: interpreted by me, no acute changes EKG shows: sinus rhythm Specialty Discharge - Follow Up or Referrals Follow up with: Reena Martinez MD [Physician] - 2 Weeks (Follow up at [facility] with EKG, BMP, Mag) I, Chilango Recinos MD, personally performed the services described in this documentation, ascribed by Soumya Camara RN in my presence, and it is both accurate and complete 428 .
== END 2017-06-01 16:47 | disposition home or self-care (01) | DRG 208 ==
LOC: EDBD → N.ED 07:44 → N.EDINP 09:26 → N.ICU 10:05 → N.TELES 05-31 16:18
PROVIDERS: ADMIT Internal Medicine; ATTEND Internal Medicine

== ENCOUNTER 2019-06-25 14:38 | Inpatient (IN) ==
[2019-06-25] MEDS ORDERED: VANCOMYCIN INJ 1,000 MG in SODIUM CHLORIDE 0.9% 250 ML IV STA (16:12)
[2019-06-25] MEDS ORDERED: BISACODYL 5 MG TABLET PO PRN (16:50)
[2019-06-25] MEDS ORDERED: MAGNESIUM SULF RIDER 2 GM in PREMIX 1 EACH IV PRN (16:50)
[2019-06-25] MEDS ORDERED: ZALEPLON 5 MG CAPSULE PO PRN (16:50)
[2019-06-25] MEDS ORDERED: guaiFENesin/DM ER 600-30 MG TABLET PO PRN (16:50)
[2019-06-25] MEDS ORDERED: diphenhydrAMINE CAP 25 MG CAPSULE PO PRN (16:50)
[2019-06-25] MEDS ORDERED: MAGNESIUM SULF RIDER 4 GM in PREMIX 1 EACH IV PRN (16:50)
[2019-06-25] MEDS ORDERED: LACTULOSE 20 GM/30 ML UDCUP PO PRN (16:50)
[2019-06-25] MEDS ORDERED: POTASSIUM CHLORIDE 20 MEQ TABLET PO PRN (16:50)
[2019-06-25] MEDS ORDERED: ONDANSETRON 4 MG/2 ML VIAL IV PRN (16:50)
[2019-06-25] MEDS ORDERED: ALBUTEROL 2.5 MG/3 ML NEB RESP TX PRN (17:02)
[2019-06-25] MEDS ORDERED: clonazePAM 0.5 MG TABLET PO PRN (17:02)
[2019-06-25 17:19] LABS: Basophils # 0.1 10*3/uL (0.0-0.2); Basophils % 0.7 % (0.0-0.8); Eosinophils # 0.8 10*3/uL (0.0-0.87); Hematocrit 37.4 VOL% (35.7-47.0); Hemoglobin 11.4 GM/DL (12.0-16.0); Immature Granulocytes % 0.4 %; Immature Granulocytes Absolute 0.04 #; Lymphocytes # 1.5 10*3/uL (1.4-4.0); Mean Corpuscular HGB Conc 30.5 GM/DL (32-36); Mean Corpuscular Volume 85.8 FL (87-102); Mean Platelet Volume 10.3 FL (9.6-12.0); Monocytes % 7.6 % (1.7-12.7); Neutrophils % 66.3 % (38.7-73.9); Platelet Count 368 T/CUMM (130-400); Red Blood Count 4.36 MC/CUMM (3.8-5.5); Red Cell Distribution Width 15.9 % (9.3-17.3); White Blood Count 9.2 T/CUMM (4-12)
[2019-06-25 17:25] LABS: INR 1.1; PT Patient Result 11.5 SECS (9.6-12.2)
[2019-06-25 17:54] LABS: Alanine Aminotransferase 11 U/L (13-56); Albumin 3.3 G/DL (3.4-5.0); Alkaline Phosphatase 98 U/L (45-117); Aspartate Amino Transferase 16 U/L (0-37); Blood Urea Nitrogen 18 MG/DL (7-18); Calcium 8.8 MG/DL (8.5-10.1); Estimated Glom Filtration Rate 49 ML/MIN; Glucose 105 MG/DL (74-106); Osmolality,Calculated 276.7 MOS/KG (273-304); Total Protein 7.1 G/DL (6.4-8.3)
[2019-06-25 17:56] LABS: Troponin I 0.447 NG/ML (0.00-0.045)
[2019-06-25] MEDS ORDERED: LEVOFLOXACIN INJ 500 MG in PREMIX 1 EACH IV SCH (18:00)
[2019-06-25] MEDS: ENOXAPARIN 40 MG/0.4 ML SYRINGE SUBCUT SCH (20:41)
[2019-06-25] MEDS: QUEtiapine 25 MG TABLET PO SCH (20:42)
[2019-06-25] MEDS: GABAPENTIN 400 MG CAPSULE PO SCH (20:42)
[2019-06-25] MEDS ORDERED: VANCOMYCIN INJ 1,250 MG in SODIUM CHLORIDE 0.9% 250 ML IV SCH (21:00)
[2019-06-26 06:15] LABS: Calcium 9.1 MG/DL (8.5-10.1); Osmolality,Calculated 281.3 MOS/KG (273-304)
[2019-06-26 06:27] LABS: Basophils # 0.1 10*3/uL (0.0-0.2); Basophils % 0.8 % (0.0-0.8); Eosinophils # 1.1 10*3/uL (0.0-0.87); Eosinophils % 13.8 % (0.00-10.9); Hematocrit 38.6 VOL% (35.7-47.0); Hemoglobin 11.2 GM/DL (12.0-16.0); Immature Granulocytes % 0.6 %; Immature Granulocytes Absolute 0.05 #; Lymphocytes # 1.3 10*3/uL (1.4-4.0); Lymphocytes % 16.1 % (21.3-54.2); Mean Corpuscular Volume 89.8 FL (87-102); Mean Platelet Volume 10.3 FL (9.6-12.0); Neutrophils % 60.7 % (38.7-73.9); Platelet Count 292 T/CUMM (130-400); Red Cell Distribution Width 16.1 % (9.3-17.3); White Blood Count 7.8 T/CUMM (4-12)
[2019-06-26] MEDS: LEVOTHYROXINE 50 MCG TABLET PO SCH (06:44)
[2019-06-26 06:55] LABS: Eosinophils 12 % (0-10); Hypochromasia 1+; Lymphocytes 16 % (20-55); Ovalocytes Slight; Platelet Estimate Adequate; Segmented Neutrophils 63 % (50-85); Total Cells Counted 100
[2019-06-26] MEDS ORDERED: LISINOPRIL 2.5 MG TABLET PO SCH (09:00)
[2019-06-26] MEDS: PANTOPRAZOLE 40 MG TABLET PO SCH (09:20)
[2019-06-26] MEDS: GABAPENTIN 400 MG CAPSULE PO SCH ×4 (09:20→20:57)
[2019-06-26] MEDS: SPIRONOLACTONE 25 MG TABLET PO SCH (09:21)
[2019-06-26] MEDS: FUROSEMIDE 40 MG TABLET PO SCH (09:21)
[2019-06-26] MEDS: ASPIRIN EC 81 MG TABLET PO SCH (09:21)
[2019-06-26] MEDS: METOPROLOL SUCCINATE XL 25 MG TABLET PO SCH (09:22)
[2019-06-26 11:28] LABS: HIV Antigen/Antibody Result Nonreactive (Nonreactive)
[2019-06-26 13:54] LABS: Troponin I 0.367 NG/ML (0.00-0.045)
[2019-06-26] MEDS ORDERED: VANCOMYCIN INJ 1,250 MG in SODIUM CHLORIDE 0.9% 250 ML IV SCH (17:00)
[2019-06-26 17:48] LABS: Barbiturates Screen,Urine Negative (Negative); Benzodiazepines Screen,Urine Negative (Negative); Cannabinoid Screen,Urine Negative (Negative); Opiate Screen,Urine Positive (Negative); Phencyclidine Screen,Urine Negative (Negative)
[2019-06-26] MEDS ORDERED: LEVOFLOXACIN INJ 750 MG in PREMIX 1 EACH IV SCH (18:00)
[2019-06-26] MEDS: ENOXAPARIN 40 MG/0.4 ML SYRINGE SUBCUT SCH (20:57)
[2019-06-26] MEDS: QUEtiapine 25 MG TABLET PO SCH (20:57)
[2019-06-26] MEDS ORDERED: clonazePAM 0.5 MG TABLET PO SCH (21:00)
[2019-06-27] MEDS: LEVOTHYROXINE 50 MCG TABLET PO SCH (06:17)
[2019-06-27 06:25] LABS: Basophils # 0.1 10*3/uL (0.0-0.2); Basophils % 0.8 % (0.0-0.8); Eosinophils # 1.2 10*3/uL (0.0-0.87); Eosinophils % 16.7 % (0.00-10.9); Hematocrit 33.8 VOL% (35.7-47.0); Hemoglobin 10.2 GM/DL (12.0-16.0); Immature Granulocytes % 0.4 %; Immature Granulocytes Absolute 0.03 #; Lymphocytes # 1.2 10*3/uL (1.4-4.0); Lymphocytes % 16.4 % (21.3-54.2); Mean Corpuscular HGB Conc 30.2 GM/DL (32-36); Mean Corpuscular Volume 87.3 FL (87-102); Monocytes % 10.2 % (1.7-12.7); Neutrophils % 55.5 % (38.7-73.9); Platelet Count 310 T/CUMM (130-400); Red Blood Count 3.87 MC/CUMM (3.8-5.5); Red Cell Distribution Width 15.9 % (9.3-17.3); White Blood Count 7.1 T/CUMM (4-12)
[2019-06-27 06:45] LABS: Eosinophils 24 % (0-10); Hypochromasia 1+; Lymphocytes 12 % (20-55); Ovalocytes Slight; Platelet Estimate Adequate; Segmented Neutrophils 58 % (50-85); Total Cells Counted 100
[2019-06-27 06:52] LABS: Osmolality,Calculated 285.1 MOS/KG (273-304)
[2019-06-27] MEDS ORDERED: COLLAGENASE OINT 30 GM TUBE TOP SCH (09:00)
[2019-06-27] MEDS: ASPIRIN EC 81 MG TABLET PO SCH (09:19)
[2019-06-27] MEDS: METOPROLOL SUCCINATE XL 25 MG TABLET PO SCH (09:20)
[2019-06-27] MEDS: SPIRONOLACTONE 25 MG TABLET PO SCH (09:20)
[2019-06-27] MEDS: PANTOPRAZOLE 40 MG TABLET PO SCH (09:21)
[2019-06-27] MEDS: GABAPENTIN 400 MG CAPSULE PO SCH ×2 (09:21→12:33)
[2019-06-27] MEDS: FUROSEMIDE 40 MG TABLET PO SCH (09:21)
[2019-06-27 11:31] VITALS: BP 90/53
[2019-06-27] MEDS ORDERED: LEVOFLOXACIN 500 MG TABLET PO SCH (12:50)
[2019-06-27] MEDS ORDERED: SULFAMETHOX/TRIMETHOPRIM 800-160 MG TABLET PO SCH (21:00)
== END 2019-06-27 15:30 | disposition home or self-care (01) | DRG 813 ==
LOC: N.ED 14:38 → N.EDINP 14:38 → N.TELEN 17:20
PROVIDERS: ADMIT Internal Medicine Clinical Cardiac Electrophysiology; ATTEND Internal Medicine Clinical Cardiac Electrophysiology

== ENCOUNTER 2019-10-31 12:15 | Inpatient (IN) ==
[2019-10-31] MEDS ORDERED: SODIUM CHLORIDE 0.9% 1,000 ML IV STA ×2 (13:00→14:09)
[2019-10-31 13:49] LABS: Basophils # 0.1 10*3/uL (0.0-0.2); Basophils % 0.4 % (0.0-0.8); Eosinophils # 0.2 10*3/uL (0.0-0.87); Hematocrit 31.8 VOL% (35.7-47.0); Hemoglobin 10.4 GM/DL (12.0-16.0); Immature Granulocytes Absolute 0.18 #; Lymphocytes # 0.6 10*3/uL (1.4-4.0); Lymphocytes % 3.4 % (21.3-54.2); Mean Corpuscular HGB Conc 32.7 GM/DL (32-36); Mean Corpuscular Volume 83.9 FL (87-102); Mean Platelet Volume 10.5 FL (9.6-12.0); Monocytes % 5.6 % (1.7-12.7); Neutrophils % 88.6 % (38.7-73.9); Platelet Count 453 T/CUMM (130-400); Red Blood Count 3.79 MC/CUMM (3.8-5.5); Red Cell Distribution Width 16.3 % (9.3-17.3); White Blood Count 18.5 T/CUMM (4-12)
[2019-10-31 14:08] LABS: Alanine Aminotransferase < 6 U/L (13-56); Albumin 3.1 G/DL (3.4-5.0); Alkaline Phosphatase 80 U/L (45-117); Aspartate Amino Transferase 6 U/L (0-37); Blood Urea Nitrogen 118 MG/DL (7-18); Calcium 8.1 MG/DL (8.5-10.1); Estimated Glom Filtration Rate 3 ML/MIN; Glucose 135 MG/DL (74-106); Osmolality,Calculated 297.9 MOS/KG (273-304)
[2019-10-31] MEDS ORDERED: ONDANSETRON 4 MG/2 ML VIAL IV PRN (14:15)
[2019-10-31] MEDS ORDERED: SODIUM CHLORIDE 0.9% 1,000 ML IV SCH ×2 (14:30→15:37)
[2019-10-31 14:36] LABS: Eosinophils 1 % (0-10); Lymphocytes 2 % (20-55); Microcytosis 1+; Segmented Neutrophils 96 % (50-85); Total Cells Counted 100
[2019-10-31 14:37] LABS: Anisocytosis 1+; Hypochromasia Slight
[2019-10-31 14:38] LABS: Hypersegmented Neutrophil Few; Platelet Estimate Increased
[2019-10-31] MEDS ORDERED: LORazepam 2 MG/1 ML VIAL ONE (14:54)
[2019-10-31] MEDS ORDERED: MAGNESIUM SULF RIDER 4 GM in PREMIX 1 EACH IV PRN (15:20)
[2019-10-31] MEDS ORDERED: LORazepam 2 MG/1 ML VIAL IV STA (15:21)
[2019-10-31] MEDS ORDERED: SODIUM BICARBONATE 50 MEQ/50 ML VIAL IV STA (15:21)
[2019-10-31] MEDS ORDERED: ALBUTEROL 2.5 MG/3 ML NEB RESP TX PRN (15:23)
[2019-10-31] MEDS ORDERED: SODIUM CHLORIDE 0.9% 300 ML IV STA (15:23)
[2019-10-31] MEDS ORDERED: ACETAMINOPHEN 325 MG TABLET PO PRN (15:24)
[2019-10-31] MEDS ORDERED: VANCOMYCIN INJ 1,250 MG in SODIUM CHLORIDE 0.9% 250 ML IV SCH (15:30)
[2019-10-31] MEDS ORDERED: CIPROFLOXACIN INJ 400 MG in PREMIX 1 EACH IV SCH (15:30)
[2019-10-31] MEDS ORDERED: NOREPINEPHRINE 4 MG/4 ML VIAL IV ONE (15:44)
[2019-10-31] MEDS: NOREPINEPHRINE 8 MG in SODIUM CHLORIDE 0.9% 242 ML IV SCH ×2 (15:45→19:59)
[2019-10-31] MEDS: DOPamine 800 MG/250 ML PREMIX IV SCH (17:12)
[2019-10-31] MEDS: PHENYLEPHRINE DRIP 40 MG/250 ML PREMIX IV SCH (17:13)
[2019-10-31] MEDS: LINEZOLID INJ 600 MG in PREMIX 1 EACH IV SCH (17:14)
[2019-10-31] MEDS: metroNIDAZOLE INJ 500 MG in PREMIX 1 EACH IV SCH (17:20)
[2019-10-31] MEDS ORDERED: SODIUM CHLORIDE 0.9% 700 ML IV ONE (17:22)
[2019-10-31] MEDS: SODIUM BICARB INJ 50 MEQ in SODIUM CHLORIDE 0.45% 1,000 ML IV SCH ×2 (17:24→23:47)
[2019-10-31] MEDS: HEPARIN 5,000 UNIT/1 ML VIAL SUBCUT SCH ×2 (17:24→22:34)
[2019-10-31] MEDS ORDERED: SODIUM CHLORIDE 0.9% 1,000 ML IV ONE (18:00)
[2019-10-31] MEDS ORDERED: SODIUM CHLORIDE 0.9% 2,000 ML IV ONE (18:00)
[2019-10-31 18:18] LABS: Barbiturates Screen,Urine Negative (Negative); Benzodiazepines Screen,Urine Negative (Negative); Cannabinoid Screen,Urine Negative (Negative); Opiate Screen,Urine Negative (Negative); Phencyclidine Screen,Urine Negative (Negative)
[2019-10-31 18:30] LABS: Microalbum/Creat Ratio Random 43.3 RATIO (0-30)
[2019-10-31] MEDS: ALBUTEROL/IPRATROPIUM 3 ML NEB RESP TX SCH (19:50)
[2019-10-31 20:38] LABS: Apearance,Urine CLOUDY (Clear); Bilirubin,Urine Negative (Negative); Blood, Urine Small mg/dL (Negative); Glucose,Urine (UA) Negative (Negative); Ketones,Urine Negative (Negative); Nitrite,Urine Negative (Negative); Protein,Urine 100 MG/DL; RBC,Urine 22 /HPF (0-4); Squamous Epithelial Cell,Urine Few /HPF (0-10); Urine Color Yellow (Yellow); Urine Specific Gravity 1.019 (1.001-1.035); Urine Urobilinogen < 2.0 EU/DL (0.2-1.0); WBC,Urine 967 /HPF (0-6)
[2019-10-31] MEDS: MORPHINE 4 MG/1 ML VIAL IV PRN (20:46)
[2019-10-31] MEDS ORDERED: PANTOPRAZOLE 40 MG VIAL IV SCH (21:00)
[2019-11-01] MEDS: MORPHINE 4 MG/1 ML VIAL IV PRN ×3 (00:30→18:54)
[2019-11-01] MEDS: NOREPINEPHRINE 8 MG in SODIUM CHLORIDE 0.9% 242 ML IV SCH ×5 (00:37→19:45)
[2019-11-01] MEDS: ALBUTEROL/IPRATROPIUM 3 ML NEB RESP TX SCH ×4 (00:39→19:38)
[2019-11-01] MEDS: metroNIDAZOLE INJ 500 MG in PREMIX 1 EACH IV SCH ×3 (02:52→18:17)
[2019-11-01] MEDS: SODIUM BICARB INJ 50 MEQ in SODIUM CHLORIDE 0.45% 1,000 ML IV SCH ×3 (03:08→16:43)
[2019-11-01] MEDS: LINEZOLID INJ 600 MG in PREMIX 1 EACH IV SCH ×2 (04:08→16:01)
[2019-11-01 05:30] LABS: Basophils # 0.1 10*3/uL (0.0-0.2); Basophils % 0.4 % (0.0-0.8); Eosinophils # 0.1 10*3/uL (0.0-0.87); Eosinophils % 0.9 % (0.00-10.9); Hematocrit 24.6 VOL% (35.7-47.0); Hemoglobin 8.1 GM/DL (12.0-16.0); Immature Granulocytes % 0.7 %; Immature Granulocytes Absolute 0.09 #; Lymphocytes # 1.7 10*3/uL (1.4-4.0); Lymphocytes % 12.3 % (21.3-54.2); Mean Corpuscular HGB Conc 32.9 GM/DL (32-36); Mean Corpuscular Volume 83.1 FL (87-102); Mean Platelet Volume 10.8 FL (9.6-12.0); Monocytes % 11.5 % (1.7-12.7); Neutrophils % 74.2 % (38.7-73.9); Platelet Count 450 T/CUMM (130-400); Red Blood Count 2.96 MC/CUMM (3.8-5.5); Red Cell Distribution Width 16.7 % (9.3-17.3); White Blood Count 13.7 T/CUMM (4-12)
[2019-11-01] MEDS: HEPARIN 5,000 UNIT/1 ML VIAL SUBCUT SCH ×3 (05:43→22:28)
[2019-11-01 06:59] LABS: Alanine Aminotransferase < 6 U/L (13-56); Albumin 2.2 G/DL (3.4-5.0); Alkaline Phosphatase 60 U/L (45-117); Aspartate Amino Transferase 23 U/L (0-37); Bilirubin,Total < 0.39 MG/DL (0.2-1.0); Blood Urea Nitrogen 82 MG/DL (7-18); Calcium 6.1 MG/DL (8.5-10.1); Estimated Glom Filtration Rate 8 ML/MIN; Glucose 165 MG/DL (74-106); HDL Cholesterol 30 MG/DL (40-60); Risk Ratio 4.43; Total Protein 4.8 G/DL (6.4-8.3); Triglycerides 106 MG/DL (2-150); VLDL CHOLESTEROL 21.2 MG/DL
[2019-11-01] MEDS: POTASSIUM CHLORIDE RIDER 10 MEQ in PREMIX 1 EACH IV PRN ×4 (08:20→14:20)
[2019-11-01] MEDS: MAGNESIUM SULF RIDER 2 GM in PREMIX 1 EACH IV PRN ×2 (08:22→13:15)
[2019-11-01] MEDS: CALCIUM CARBONATE CHEW 500 MG TABLET PO SCH ×3 (08:29→21:01)
[2019-11-01] MEDS ORDERED: clonazePAM 0.5 MG TABLET PO PRN (10:12)
[2019-11-01] MEDS ORDERED: NOREPINEPHRINE 4 MG/4 ML VIAL IV ONE ×2 (11:31→15:21)
[2019-11-01] MEDS: MENTHOL/ZINC OXIDE OINT 71 GM JAR TOP SCH ×2 (15:11→21:01)
[2019-11-01] MEDS: DOPamine 800 MG/250 ML PREMIX IV SCH (15:39)
[2019-11-01] MEDS: PHENYLEPHRINE DRIP 40 MG/250 ML PREMIX IV SCH ×2 (15:39→20:01)
[2019-11-01] MEDS ORDERED: SODIUM CHLORIDE 0.9% 1,000 ML IV PRN (18:20)
[2019-11-01] MEDS ORDERED: FUROSEMIDE 20 MG/2 ML VIAL IV PRN (18:26)
[2019-11-01] MEDS ORDERED: SODIUM CHLORIDE 0.9% 500 ML IV ONE (19:55)
[2019-11-01] MEDS ORDERED: ETOMIDATE 20 MG/10 ML VIAL IV ONE ×2 (20:03→20:08)
[2019-11-01] MEDS ORDERED: VECURONIUM 10 MG VIAL IV ONE ×2 (20:03→20:09)
[2019-11-01 20:04] LABS: Basophils # 0.1 10*3/uL (0.0-0.2); Basophils % 0.4 % (0.0-0.8); Eosinophils % 0.1 % (0.00-10.9); Hematocrit 30.8 VOL% (35.7-47.0); Immature Granulocytes % 0.7 %; Immature Granulocytes Absolute 0.14 #; Lymphocytes # 0.7 10*3/uL (1.4-4.0); Lymphocytes % 3.7 % (21.3-54.2); Mean Corpuscular HGB Conc 33.8 GM/DL (32-36); Mean Corpuscular Volume 82.4 FL (87-102); Mean Platelet Volume 10.3 FL (9.6-12.0); Monocytes % 7.8 % (1.7-12.7); NRBC # 0.04 10*3/uL; Neutrophils % 87.3 % (38.7-73.9); Red Cell Distribution Width 16.7 % (9.3-17.3)
[2019-11-01 20:06] LABS: Hemoglobin 10.4 GM/DL (12.0-16.0); Platelet Count 539 T/CUMM (130-400); Red Blood Count 3.74 MC/CUMM (3.8-5.5); White Blood Count 18.8 T/CUMM (4-12)
[2019-11-01] MEDS ORDERED: DIGOXIN 0.5 MG/2 ML AMP IV ONE (20:16)
[2019-11-01 20:19] LABS: Lymphocytes 4 % (20-55); Platelet Estimate Increased; Segmented Neutrophils 92 % (50-85); Total Cells Counted 100
[2019-11-01 20:20] LABS: Hypochromasia Slight; Microcytosis Slight
[2019-11-01] MEDS ORDERED: PHENYLEPHRINE INJ 160 MG in SODIUM CHLORIDE 0.9% 234 ML IV PRN (20:22)
[2019-11-01 20:30] LABS: Calcium 8.2 MG/DL (8.5-10.1); Osmolality,Calculated 300.7 MOS/KG (273-304)
[2019-11-01] MEDS: METOPROLOL TARTRATE 5 MG/5 ML VIAL IV SCH ×2 (20:55→20:59)
[2019-11-01 20:57] LABS: ABG Base Excess -18.2 MMOL/L (-2.5-2.5); ABG HCO3 10.9 MMOL/L (20-26); ABG Oxygen Saturation 99.2 % (95-100); ABG PCO2 28.4 MM HG (35-48); ABG TCO2 9.2 MMOL/L (23-27)
[2019-11-01 20:59] LABS: ABG PH 7.145 (7.35-7.45)
[2019-11-01] MEDS ORDERED: SODIUM BICARBONATE 50 MEQ/50 ML VIAL IV ONE ×2 (21:25)
[2019-11-01] MEDS: PANTOPRAZOLE 40 MG VIAL IV SCH (22:26)
[2019-11-01] MEDS: NOREPINEPHRINE 16 MG in SODIUM CHLORIDE 0.9% 234 ML IV PRN (22:28)
[2019-11-02] MEDS ORDERED: FUROSEMIDE 20 MG/2 ML VIAL IV ONE (00:44)
[2019-11-02] MEDS: ALBUTEROL/IPRATROPIUM 3 ML NEB RESP TX SCH ×4 (01:03→19:00)
[2019-11-02] MEDS: metroNIDAZOLE INJ 500 MG in PREMIX 1 EACH IV SCH ×3 (02:07→16:12)
[2019-11-02] MEDS: SODIUM BICARB INJ 50 MEQ in SODIUM CHLORIDE 0.45% 1,000 ML IV SCH ×3 (03:39→21:25)
[2019-11-02] MEDS: LINEZOLID INJ 600 MG in PREMIX 1 EACH IV SCH ×2 (03:56→15:49)
[2019-11-02 04:40] LABS: ABG Base Excess -9.5 MMOL/L (-2.5-2.5); ABG PCO2 29.3 MM HG (35-48); ABG PH 7.327 (7.35-7.45); ABG TCO2 13.6 MMOL/L (23-27)
[2019-11-02 04:47] LABS: Basophils % 0.2 % (0.0-0.8); Hematocrit 37.9 VOL% (35.7-47.0); Immature Granulocytes % 1.3 %; Immature Granulocytes Absolute 0.24 #; Lymphocytes % 5.4 % (21.3-54.2); Mean Corpuscular HGB Conc 32.7 GM/DL (32-36); Mean Corpuscular Volume 83.1 FL (87-102); Mean Platelet Volume 10.6 FL (9.6-12.0); Monocytes % 4.2 % (1.7-12.7); NRBC # 0.03 10*3/uL; Neutrophils % 88.9 % (38.7-73.9); White Blood Count 18.7 T/CUMM (4-12)
[2019-11-02 05:06] LABS: Red Blood Count 4.56 MC/CUMM (3.8-5.5)
[2019-11-02 05:07] LABS: Hemoglobin 12.4 GM/DL (12.0-16.0); Platelet Count 352 T/CUMM (130-400)
[2019-11-02 05:32] LABS: Bilirubin,Total 2.2 MG/DL (0.2-1.0); Calcium 7.9 MG/DL (8.5-10.1); Osmolality,Calculated 302.5 MOS/KG (273-304); Total Protein 5.7 G/DL (6.4-8.3)
[2019-11-02] MEDS: NOREPINEPHRINE 8 MG in SODIUM CHLORIDE 0.9% 242 ML IV SCH ×2 (06:22→15:46)
[2019-11-02] MEDS ORDERED: AMIODARONE 150 MG/3 ML VIAL ONE (06:39)
[2019-11-02] MEDS ORDERED: AMIODARONE 450 MG/9 ML VIAL IV ONE (06:39)
[2019-11-02] MEDS ORDERED: AMIODARONE INJ 150 MG in DEXTROSE 5% 100 ML IV ONE (06:40)
[2019-11-02] MEDS ORDERED: AMIODARONE INJ 450 MG in DEXTROSE 5% 241 ML IV SCH (07:00)
[2019-11-02] MEDS: HEPARIN 5,000 UNIT/1 ML VIAL SUBCUT SCH ×3 (07:27→22:34)
[2019-11-02 09:02] LABS: Random Urine Protein (Bench) 105 MG/DL (<11.9)
[2019-11-02] MEDS: PANTOPRAZOLE 40 MG VIAL IV SCH ×2 (09:13→21:20)
[2019-11-02] MEDS: CALCIUM CARBONATE CHEW 500 MG TABLET PO SCH ×3 (09:41→21:18)
[2019-11-02] MEDS: MENTHOL/ZINC OXIDE OINT 71 GM JAR TOP SCH ×2 (10:30→21:24)
[2019-11-02] MEDS: AMIODARONE INJ 450 MG in DEXTROSE 5% 241 ML IV SCH (12:58)
[2019-11-02] MEDS: NOREPINEPHRINE 16 MG in SODIUM CHLORIDE 0.9% 234 ML IV PRN (13:05)
[2019-11-02] MEDS: DOPamine 800 MG/250 ML PREMIX IV SCH (15:45)
[2019-11-02] MEDS: PHENYLEPHRINE DRIP 40 MG/250 ML PREMIX IV SCH (16:17)
[2019-11-03] MEDS: SODIUM BICARB INJ 50 MEQ in SODIUM CHLORIDE 0.45% 1,000 ML IV SCH ×3 (00:32→11:24)
[2019-11-03] MEDS: ALBUTEROL/IPRATROPIUM 3 ML NEB RESP TX SCH ×4 (00:44→19:07)
[2019-11-03] MEDS: metroNIDAZOLE INJ 500 MG in PREMIX 1 EACH IV SCH ×3 (01:14→16:33)
[2019-11-03 04:08] LABS: ABG Base Excess -10.2 MMOL/L (-2.5-2.5); ABG HCO3 16.5 MMOL/L (20-26); ABG PCO2 28.4 MM HG (35-48); ABG PH 7.321 (7.35-7.45); ABG TCO2 12.8 MMOL/L (23-27)
[2019-11-03] MEDS: LINEZOLID INJ 600 MG in PREMIX 1 EACH IV SCH ×2 (04:34→16:36)
[2019-11-03] MEDS: AMIODARONE INJ 450 MG in DEXTROSE 5% 241 ML IV SCH (04:36)
[2019-11-03 04:43] LABS: Basophils # 0.1 10*3/uL (0.0-0.2); Basophils % 0.2 % (0.0-0.8); Hematocrit 38.5 VOL% (35.7-47.0); Hemoglobin 12.5 GM/DL (12.0-16.0); Immature Granulocytes % 1.6 %; Immature Granulocytes Absolute 0.49 #; Lymphocytes # 1.2 10*3/uL (1.4-4.0); Lymphocytes % 3.8 % (21.3-54.2); Mean Corpuscular HGB Conc 32.5 GM/DL (32-36); Mean Corpuscular Volume 83.5 FL (87-102); Mean Platelet Volume 11.3 FL (9.6-12.0); Monocytes % 3.8 % (1.7-12.7); NRBC # 0.06 10*3/uL; Neutrophils % 90.6 % (38.7-73.9); Platelet Count 317 T/CUMM (130-400); Red Blood Count 4.61 MC/CUMM (3.8-5.5); Red Cell Distribution Width 16.7 % (9.3-17.3)
[2019-11-03] MEDS: NOREPINEPHRINE 16 MG in SODIUM CHLORIDE 0.9% 234 ML IV PRN (05:05)
[2019-11-03 05:07] LABS: Band Neutrophils 3 % (0-10); Lymphocytes 1 % (20-55); Segmented Neutrophils 95 % (50-85); Total Cells Counted 100
[2019-11-03 05:08] LABS: Hypochromasia 1+; Microcytosis 1+
[2019-11-03 05:09] LABS: Platelet Estimate Normal
[2019-11-03 06:31] LABS: Albumin 2.1 G/DL (3.4-5.0); Bilirubin,Total 2.4 MG/DL (0.2-1.0); Calcium 7.8 MG/DL (8.5-10.1); Osmolality,Calculated 300.5 MOS/KG (273-304); Total Protein 5.6 G/DL (6.4-8.3)
[2019-11-03] MEDS: HEPARIN 5,000 UNIT/1 ML VIAL SUBCUT SCH ×3 (06:39→22:17)
[2019-11-03 08:25] LABS: VBG Base Excess -8.4 MEQ/L (0-4); VBG HCO3 17.2 MEQ/L (24-28); VBG Oxygen Saturation 65.3 %; VBG PCO2 35.1 MMHG (41-51); VBG PH 7.3; VBG PO2 39.3 MMHG (17-40)
[2019-11-03] MEDS: CALCIUM CARBONATE CHEW 500 MG TABLET PO SCH ×3 (08:38→22:17)
[2019-11-03] MEDS: PANTOPRAZOLE 40 MG VIAL IV SCH ×2 (08:38→22:18)
[2019-11-03] MEDS ORDERED: GLUCAGON 1 MG VIAL IM PRN (08:39)
[2019-11-03] MEDS ORDERED: DEXTROSE 50% 25 GM/50 ML VIAL IV PRN (08:39)
[2019-11-03] MEDS: MENTHOL/ZINC OXIDE OINT 71 GM JAR TOP SCH ×2 (08:44→22:17)
[2019-11-03] MEDS: INSULIN LISPRO 100 UNIT/ML SUBCUT SCH ×2 (11:43→18:09)
[2019-11-03] MEDS ORDERED: LEVOFLOXACIN INJ 500 MG in PREMIX 1 EACH IV ONE (12:01)
[2019-11-03] MEDS ORDERED: fentaNYL INJ 1,250 MCG in SODIUM CHLORIDE 0.9% 225 ML IV PRN (12:03)
[2019-11-03] MEDS ORDERED: LACTATED RINGERS 500 ML IV ONE ×2 (12:04→13:58)
[2019-11-03] MEDS: SODIUM BICARB INJ 150 MEQ in STERILE WATER INJ 1,000 ML IV SCH (16:33)
[2019-11-04] MEDS: ALBUTEROL/IPRATROPIUM 3 ML NEB RESP TX SCH ×4 (00:38→19:06)
[2019-11-04 00:55] LABS: Astrovirus Negative (Negative); Cryptosporidium species Negative (Negative); Cyclospora cayetanensis Negative (Negative); Entamoeba histolytica Negative (Negative); Enteropathogenic E.coli (EPEC) Negative (Negative); Enterotoxigenic E. coli (ETEC) Negative (Negative); Norovirus GI/GII Negative (Negative); Plesiomonas shigelloides Negative (Negative); Salmonella species Negative (Negative); Sapovirus Negative (Negative); Shiga toxin producing E. coli Negative (Negative); Shigella/Enteroinvasive E.coli Negative (Negative); Specimen Source STOOL; Vibrio cholerae Negative (Negative); Yersinia enterocolitica Negative (Negative)
[2019-11-04] MEDS: INSULIN LISPRO 100 UNIT/ML SUBCUT SCH ×4 (01:20→18:09)
[2019-11-04] MEDS: metroNIDAZOLE INJ 500 MG in PREMIX 1 EACH IV SCH ×3 (01:50→17:49)
[2019-11-04] MEDS: LINEZOLID INJ 600 MG in PREMIX 1 EACH IV SCH ×2 (04:56→15:24)
[2019-11-04 05:30] LABS: ABG Base Excess -7.7 MMOL/L (-2.5-2.5); ABG HCO3 18.3 MMOL/L (20-26); ABG Oxygen Saturation 99.4 % (95-100); ABG PCO2 26.2 MM HG (35-48); ABG PH 7.392 (7.35-7.45); ABG TCO2 14.3 MMOL/L (23-27)
[2019-11-04 06:26] LABS: Albumin 1.9 G/DL (3.4-5.0); Basophils # 0.1 10*3/uL (0.0-0.2); Basophils % 0.3 % (0.0-0.8); Calcium 7.4 MG/DL (8.5-10.1); Hematocrit 33.8 VOL% (35.7-47.0); Hemoglobin 11.2 GM/DL (12.0-16.0); Immature Granulocytes % 2.6 %; Immature Granulocytes Absolute 0.69 #; Lymphocytes # 0.7 10*3/uL (1.4-4.0); Lymphocytes % 2.5 % (21.3-54.2); Mean Corpuscular HGB Conc 33.1 GM/DL (32-36); Mean Corpuscular Volume 82.4 FL (87-102); Mean Platelet Volume 11.6 FL (9.6-12.0); Monocytes % 3.6 % (1.7-12.7); NRBC # 0.07 10*3/uL; Osmolality,Calculated 299.1 MOS/KG (273-304); Red Cell Distribution Width 16.7 % (9.3-17.3); Total Protein 4.9 G/DL (6.4-8.3); White Blood Count 26.7 T/CUMM (4-12)
[2019-11-04 06:30] LABS: Platelet Count 196 T/CUMM (130-400)
[2019-11-04] MEDS: HEPARIN 5,000 UNIT/1 ML VIAL SUBCUT SCH ×2 (06:39→15:23)
[2019-11-04] MEDS: SODIUM BICARB INJ 150 MEQ in STERILE WATER INJ 1,000 ML IV SCH (07:01)
[2019-11-04 07:34] LABS: Band Neutrophils 2 % (0-10); Lymphocytes 3 % (20-55); Platelet Estimate Normal; Segmented Neutrophils 94 % (50-85); Total Cells Counted 100
[2019-11-04 07:38] LABS: Basophilic Stippling 1+; Burr Cells 2+; Ovalocytes Few
[2019-11-04 07:39] LABS: Hypochromasia Slight; Polychromasia 1+
[2019-11-04 09:03] LABS: VBG Base Excess -4.1 MEQ/L (0-4); VBG HCO3 20.4 MEQ/L (24-28); VBG Oxygen Saturation 63.8 %; VBG PCO2 33.8 MMHG (41-51); VBG PH 7.383; VBG PO2 36.8 MMHG (17-40)
[2019-11-04] MEDS ORDERED: LACTATED RINGERS 500 ML IV ONE (09:17)
[2019-11-04] MEDS: MENTHOL/ZINC OXIDE OINT 71 GM JAR TOP SCH ×2 (09:18→20:57)
[2019-11-04] MEDS: CALCIUM CARBONATE CHEW 500 MG TABLET PO SCH ×3 (09:18→20:57)
[2019-11-04] MEDS: BISACODYL 5 MG TABLET NG SCH ×2 (09:18→15:24)
[2019-11-04] MEDS: PANTOPRAZOLE 40 MG VIAL IV SCH ×2 (09:19→20:57)
[2019-11-04] MEDS: SODIUM BICARB INJ 150 MEQ in DEXTROSE 5% 1,000 ML IV SCH (13:24)
[2019-11-04] MEDS ORDERED: POLYETHYLENE GLYCOL 3350/ELECTROLYTES 4,000 ML BOTTLE NG ONE (14:00)
[2019-11-04] MEDS: NOREPINEPHRINE 16 MG in SODIUM CHLORIDE 0.9% 234 ML IV PRN (20:25)
[2019-11-05] MEDS: INSULIN LISPRO 100 UNIT/ML SUBCUT SCH ×4 (00:08→19:04)
[2019-11-05] MEDS: BISACODYL 5 MG TABLET NG SCH (00:20)
[2019-11-05] MEDS: metroNIDAZOLE INJ 500 MG in PREMIX 1 EACH IV SCH ×3 (01:12→16:45)
[2019-11-05] MEDS: ALBUTEROL/IPRATROPIUM 3 ML NEB RESP TX SCH ×4 (01:15→19:47)
[2019-11-05] MEDS: SODIUM BICARB INJ 150 MEQ in DEXTROSE 5% 1,000 ML IV SCH ×4 (02:19→18:14)
[2019-11-05 04:06] LABS: ABG Base Excess -2.1 MMOL/L (-2.5-2.5); ABG HCO3 19.6 MMOL/L (20-26); ABG Oxygen Saturation 98.7 % (95-100); ABG PH 7.512 (7.35-7.45); ABG PO2 181.6 MM HG (80-95); ABG TCO2 20.4 MMOL/L (23-27)
[2019-11-05 04:10] LABS: Basophils % 0.2 % (0.0-0.8); Hematocrit 31.8 VOL% (35.7-47.0); Hemoglobin 10.8 GM/DL (12.0-16.0); Immature Granulocytes % 1.7 %; Immature Granulocytes Absolute 0.37 #; Lymphocytes # 0.8 10*3/uL (1.4-4.0); Lymphocytes % 3.5 % (21.3-54.2); Mean Corpuscular Volume 80.9 FL (87-102); Mean Platelet Volume 11.4 FL (9.6-12.0); Monocytes % 4.5 % (1.7-12.7); NRBC # 0.07 10*3/uL; Neutrophils % 90.1 % (38.7-73.9); Platelet Count 142 T/CUMM (130-400); Red Blood Count 3.93 MC/CUMM (3.8-5.5); Red Cell Distribution Width 15.8 % (9.3-17.3)
[2019-11-05 04:27] LABS: Albumin 1.7 G/DL (3.4-5.0); Bilirubin,Total 1.7 MG/DL (0.2-1.0); Calcium 7.2 MG/DL (8.5-10.1); Total Protein 4.7 G/DL (6.4-8.3)
[2019-11-05 04:31] LABS: Lymphocytes 4 % (20-55); Segmented Neutrophils 94 % (50-85); Total Cells Counted 100
[2019-11-05 04:32] LABS: Hypochromasia 1+; Microcytosis 1+
[2019-11-05] MEDS: LINEZOLID INJ 600 MG in PREMIX 1 EACH IV SCH (04:45)
[2019-11-05] MEDS: POTASSIUM CHLORIDE RIDER 20 MEQ in PREMIX 1 EACH IV PRN ×2 (05:07→06:11)
[2019-11-05] MEDS ORDERED: LEVOFLOXACIN INJ 250 MG in PREMIX 1 EACH IV SCH (09:00)
[2019-11-05] MEDS: cefTRIAXone 1,000 MG in SYRINGE 1 EACH IV SCH (09:29)
[2019-11-05] MEDS: PANTOPRAZOLE 40 MG VIAL IV SCH ×2 (09:41→20:22)
[2019-11-05] MEDS: MENTHOL/ZINC OXIDE OINT 71 GM JAR TOP SCH (09:55)
[2019-11-05] MEDS: CALCIUM CARBONATE CHEW 500 MG TABLET PO SCH ×3 (09:56→20:24)
[2019-11-05] MEDS: DEXMEDETOMIDINE 200 MCG in SODIUM CHLORIDE 0.9% 48 ML IV PRN ×2 (10:13→23:20)
[2019-11-05] MEDS: AMIODARONE 200 MG TABLET PO SCH ×2 (14:01→20:24)
[2019-11-05] MEDS: FUROSEMIDE 40 MG/4 ML VIAL IV SCH (17:52)
[2019-11-05] MEDS: HEPARIN DRIP 25,000 UNITS/500 ML PREMIX IV SCH (18:02)
[2019-11-06] MEDS: ALBUTEROL/IPRATROPIUM 3 ML NEB RESP TX SCH ×4 (00:10→19:25)
[2019-11-06] MEDS: metroNIDAZOLE INJ 500 MG in PREMIX 1 EACH IV SCH ×2 (00:22→08:30)
[2019-11-06] MEDS: INSULIN LISPRO 100 UNIT/ML SUBCUT SCH ×4 (00:25→18:06)
[2019-11-06] MEDS: MENTHOL/ZINC OXIDE OINT 71 GM JAR TOP SCH ×3 (02:23→21:51)
[2019-11-06 03:41] LABS: ABG Base Excess 3.5 MMOL/L (-2.5-2.5); ABG HCO3 27.5 MMOL/L (20-26); ABG Oxygen Saturation 99.2 % (95-100); ABG PCO2 32.7 MM HG (35-48); ABG PH 7.512 (7.35-7.45); ABG TCO2 23.5 MMOL/L (23-27)
[2019-11-06 03:53] LABS: Basophils % 0.1 % (0.0-0.8); Eosinophils % 0.1 % (0.00-10.9); Hematocrit 29.9 VOL% (35.7-47.0); Hemoglobin 10.1 GM/DL (12.0-16.0); Immature Granulocytes % 1.3 %; Immature Granulocytes Absolute 0.31 #; Lymphocytes # 0.9 10*3/uL (1.4-4.0); Lymphocytes % 3.7 % (21.3-54.2); Mean Corpuscular HGB Conc 33.8 GM/DL (32-36); Mean Corpuscular Volume 81.5 FL (87-102); Mean Platelet Volume 12.1 FL (9.6-12.0); Monocytes % 4.9 % (1.7-12.7); NRBC # 0.06 10*3/uL; Neutrophils % 89.9 % (38.7-73.9); Red Blood Count 3.67 MC/CUMM (3.8-5.5); Red Cell Distribution Width 15.5 % (9.3-17.3); White Blood Count 23.2 T/CUMM (4-12)
[2019-11-06 03:55] LABS: Platelet Count 97 T/CUMM (130-400)
[2019-11-06 04:03] LABS: Albumin 1.6 G/DL (3.4-5.0); Bilirubin,Total 1.3 MG/DL (0.2-1.0); Calcium 7.1 MG/DL (8.5-10.1); Total Protein 4.5 G/DL (6.4-8.3)
[2019-11-06] MEDS: POTASSIUM CHLORIDE RIDER 20 MEQ in PREMIX 1 EACH IV PRN ×4 (04:11→14:42)
[2019-11-06 04:12] LABS: Lymphocytes 6 % (20-55); Platelet Estimate Decreased; Segmented Neutrophils 92 % (50-85); Total Cells Counted 100
[2019-11-06 04:13] LABS: Hypochromasia 1+; Microcytosis 1+
[2019-11-06] MEDS: LEVOTHYROXINE 50 MCG TABLET PO SCH (06:04)
[2019-11-06] MEDS: SODIUM BICARB INJ 150 MEQ in DEXTROSE 5% 1,000 ML IV SCH (06:04)
[2019-11-06] MEDS: cefTRIAXone 1,000 MG in SYRINGE 1 EACH IV SCH (08:30)
[2019-11-06] MEDS: FUROSEMIDE 40 MG/4 ML VIAL IV SCH ×2 (09:00→16:25)
[2019-11-06] MEDS: MORPHINE 4 MG/1 ML VIAL IV PRN ×2 (09:00→17:07)
[2019-11-06] MEDS: AMIODARONE 200 MG TABLET PO SCH ×2 (09:00→21:51)
[2019-11-06] MEDS: PANTOPRAZOLE 40 MG VIAL IV SCH ×2 (09:37→21:52)
[2019-11-06] MEDS: CALCIUM CARBONATE CHEW 500 MG TABLET PO SCH ×3 (09:37→21:51)
[2019-11-06] MEDS: DEXMEDETOMIDINE 200 MCG in SODIUM CHLORIDE 0.9% 48 ML IV PRN ×3 (10:45→21:58)
[2019-11-06] MEDS: SODIUM BICARB INJ 50 MEQ in SODIUM CHLORIDE 0.45% 1,000 ML IV SCH (11:13)
[2019-11-06] MEDS: HEPARIN DRIP 25,000 UNITS/500 ML PREMIX IV SCH (11:25)
[2019-11-06 15:29] LABS: Basophils # 0.1 10*3/uL (0.0-0.2); Basophils % 0.2 % (0.0-0.8); Eosinophils # 0.1 10*3/uL (0.0-0.87); Eosinophils % 0.4 % (0.00-10.9); Hematocrit 30.5 VOL% (35.7-47.0); Hemoglobin 10.6 GM/DL (12.0-16.0); Immature Granulocytes % 1.4 %; Immature Granulocytes Absolute 0.35 #; Lymphocytes % 3.9 % (21.3-54.2); Mean Corpuscular HGB Conc 34.8 GM/DL (32-36); Mean Corpuscular Volume 79.6 FL (87-102); Mean Platelet Volume 11.1 FL (9.6-12.0); Monocytes % 4.5 % (1.7-12.7); NRBC # 0.04 10*3/uL; Neutrophils % 89.6 % (38.7-73.9); Platelet Count 83 T/CUMM (130-400); Red Blood Count 3.83 MC/CUMM (3.8-5.5); Red Cell Distribution Width 15.4 % (9.3-17.3); White Blood Count 24.9 T/CUMM (4-12)
[2019-11-06 16:46] LABS: Lymphocytes 4 % (20-55); Segmented Neutrophils 93 % (50-85); Total Cells Counted 100
[2019-11-06 16:47] LABS: Anisocytosis 1+; Microcytosis 1+
[2019-11-06 16:48] LABS: Platelet Estimate Decreased
[2019-11-07] MEDS: INSULIN LISPRO 100 UNIT/ML SUBCUT SCH ×4 (00:51→18:55)
[2019-11-07] MEDS: ALBUTEROL/IPRATROPIUM 3 ML NEB RESP TX SCH ×4 (01:14→19:39)
[2019-11-07] MEDS: MORPHINE 4 MG/1 ML VIAL IV PRN ×3 (01:25→17:12)
[2019-11-07] MEDS: DEXMEDETOMIDINE 200 MCG in SODIUM CHLORIDE 0.9% 48 ML IV PRN ×3 (02:52→13:21)
[2019-11-07 04:06] LABS: ABG Base Excess 5.8 MMOL/L (-2.5-2.5); ABG HCO3 28.7 MMOL/L (20-26); ABG Oxygen Saturation 98.6 % (95-100); ABG PCO2 35.4 MM HG (35-48); ABG PH 7.527 (7.35-7.45); ABG PO2 147.6 MM HG (80-95); ABG TCO2 29.8 MMOL/L (23-27)
[2019-11-07 04:20] LABS: Basophils % 0.2 % (0.0-0.8); Eosinophils # 0.2 10*3/uL (0.0-0.87); Eosinophils % 0.9 % (0.00-10.9); Hematocrit 29.8 VOL% (35.7-47.0); Hemoglobin 10.4 GM/DL (12.0-16.0); Immature Granulocytes % 1.1 %; Immature Granulocytes Absolute 0.26 #; Lymphocytes # 1.1 10*3/uL (1.4-4.0); Lymphocytes % 4.8 % (21.3-54.2); Mean Corpuscular HGB Conc 34.9 GM/DL (32-36); Mean Corpuscular Volume 79.5 FL (87-102); Mean Platelet Volume 12.8 FL (9.6-12.0); Monocytes % 5.1 % (1.7-12.7); NRBC # 0.04 10*3/uL; Neutrophils % 87.9 % (38.7-73.9); Red Blood Count 3.75 MC/CUMM (3.8-5.5); Red Cell Distribution Width 15.3 % (9.3-17.3); White Blood Count 23.4 T/CUMM (4-12)
[2019-11-07 04:29] LABS: Platelet Count 75 T/CUMM (130-400)
[2019-11-07 04:34] LABS: Albumin 1.5 G/DL (3.4-5.0); Bilirubin,Total 2.1 MG/DL (0.2-1.0); Calcium 7.3 MG/DL (8.5-10.1); Total Protein 4.6 G/DL (6.4-8.3)
[2019-11-07 04:44] LABS: Eosinophils 2 % (0-10); Lymphocytes 4 % (20-55); Segmented Neutrophils 92 % (50-85); Total Cells Counted 100
[2019-11-07 04:45] LABS: Anisocytosis 1+; Hypochromasia 1+; Microcytosis 1+; Platelet Estimate Decreased; Target Cells Slight
[2019-11-07] MEDS: LEVOTHYROXINE 50 MCG TABLET PO SCH (09:00)
[2019-11-07] MEDS: POTASSIUM CHLORIDE 20 MEQ TABLET PO PRN ×2 (09:01→11:27)
[2019-11-07] MEDS: AMIODARONE 200 MG TABLET PO SCH (09:01)
[2019-11-07] MEDS: CALCIUM CARBONATE CHEW 500 MG TABLET PO SCH ×3 (09:01→21:01)
[2019-11-07] MEDS: PANTOPRAZOLE 40 MG VIAL IV SCH ×2 (09:02→20:58)
[2019-11-07] MEDS: POLYETHYLENE GLYCOL POWDER 17 GM PACK NG SCH ×2 (09:02→20:58)
[2019-11-07] MEDS: FUROSEMIDE 40 MG/4 ML VIAL IV SCH ×2 (09:04→16:01)
[2019-11-07] MEDS: SODIUM BICARB INJ 50 MEQ in SODIUM CHLORIDE 0.45% 1,000 ML IV SCH (09:12)
[2019-11-07] MEDS: MENTHOL/ZINC OXIDE OINT 71 GM JAR TOP SCH ×2 (09:17→17:01)
[2019-11-07] MEDS: SODIUM CHLORIDE 0.9% 1,000 ML IV SCH (09:17)
[2019-11-07] MEDS ORDERED: HEPARIN 5,000 UNIT/1 ML VIAL SUBCUT SCH (10:00)
[2019-11-07 11:21] LABS: INR 1.8
[2019-11-07] MEDS: APIXABAN 5 MG TABLET PO SCH ×2 (14:40→21:01)
[2019-11-07] MEDS: DEXMEDETOMIDINE 400 MCG in SODIUM CHLORIDE 0.9% 96 ML IV PRN ×2 (16:16→22:31)
[2019-11-07] MEDS ORDERED: MENTHOL/ZINC OXIDE OINT 71 GM JAR TOP PRN (17:03)
[2019-11-07] MEDS ORDERED: APIXABAN 5 MG TABLET PO SCH (21:00)
[2019-11-07] MEDS: clonazePAM 0.5 MG TABLET PO SCH (21:00)
[2019-11-07] MEDS: QUEtiapine 25 MG TABLET PO SCH (21:01)
[2019-11-08] MEDS: INSULIN LISPRO 100 UNIT/ML SUBCUT SCH ×4 (00:02→18:49)
[2019-11-08] MEDS: ALBUTEROL/IPRATROPIUM 3 ML NEB RESP TX SCH ×4 (01:33→19:55)
[2019-11-08 04:31] LABS: Basophils % 0.1 % (0.0-0.8); Eosinophils # 0.4 10*3/uL (0.0-0.87); Eosinophils % 2.3 % (0.00-10.9); Hematocrit 28.1 VOL% (35.7-47.0); Hemoglobin 9.3 GM/DL (12.0-16.0); Immature Granulocytes % 0.8 %; Immature Granulocytes Absolute 0.14 #; Lymphocytes # 0.9 10*3/uL (1.4-4.0); Lymphocytes % 5.2 % (21.3-54.2); Mean Corpuscular HGB Conc 33.1 GM/DL (32-36); Mean Corpuscular Volume 81.9 FL (87-102); Mean Platelet Volume 13.4 FL (9.6-12.0); Monocytes % 5.6 % (1.7-12.7); NRBC # 0.03 10*3/uL; Platelet Count 57 T/CUMM (130-400); Red Blood Count 3.43 MC/CUMM (3.8-5.5); Red Cell Distribution Width 15.2 % (9.3-17.3); White Blood Count 16.7 T/CUMM (4-12)
[2019-11-08 04:53] LABS: Eosinophils 2 % (0-10); Hypochromasia 1+; Lymphocytes 5 % (20-55); Microcytosis 1+; Platelet Estimate Decreased; Segmented Neutrophils 90 % (50-85); Total Cells Counted 100
[2019-11-08] MEDS: DEXMEDETOMIDINE 400 MCG in SODIUM CHLORIDE 0.9% 96 ML IV PRN ×3 (04:55→17:03)
[2019-11-08 04:58] LABS: Albumin 1.5 G/DL (3.4-5.0); Bilirubin,Total 1.2 MG/DL (0.2-1.0); Calcium 7.3 MG/DL (8.5-10.1); Osmolality,Calculated 308.8 MOS/KG (273-304); Total Protein 4.6 G/DL (6.4-8.3)
[2019-11-08] MEDS: POTASSIUM CHLORIDE 20 MEQ TABLET PO PRN ×3 (05:19→10:10)
[2019-11-08] MEDS: MORPHINE 4 MG/1 ML VIAL IV PRN (05:28)
[2019-11-08] MEDS: LEVOTHYROXINE 50 MCG TABLET PO SCH (06:35)
[2019-11-08 06:59] LABS: ABG Base Excess 9.8 MMOL/L (-2.5-2.5); ABG HCO3 33.6 MMOL/L (20-26); ABG Oxygen Saturation 98.8 % (95-100); ABG PCO2 33.9 MM HG (35-48); ABG PH 7.586 (7.35-7.45); ABG TCO2 29.3 MMOL/L (23-27)
[2019-11-08] MEDS: CALCIUM CARBONATE CHEW 500 MG TABLET PO SCH ×3 (08:27→21:50)
[2019-11-08] MEDS: POLYETHYLENE GLYCOL POWDER 17 GM PACK NG SCH ×2 (08:27→21:50)
[2019-11-08] MEDS: APIXABAN 5 MG TABLET PO SCH ×2 (08:28→21:50)
[2019-11-08] MEDS: FUROSEMIDE 40 MG/4 ML VIAL IV SCH (08:28)
[2019-11-08] MEDS: FAMOTIDINE 20 MG/2 ML VIAL IV SCH (08:43)
[2019-11-08] MEDS: DULoxetine 30 MG CAPSULE PO SCH (08:43)
[2019-11-08] MEDS: SODIUM CHLORIDE 0.9% 1,000 ML IV SCH (08:48)
[2019-11-08] MEDS: GABAPENTIN 50 MG/ML 30 ML/BOTTLE PER TUBE SCH ×3 (10:03→21:50)
[2019-11-08] MEDS: clonazePAM 0.5 MG TABLET PER TUBE PRN (10:08)
[2019-11-08 12:43] LABS: INR 2.4
[2019-11-08 12:51] LABS: PT Patient Result 26.1 SECS (9.6-12.2); Partial Thromboplastin Time 44.8 SECS (20.8-36.0)
[2019-11-08] MEDS: POTASSIUM CHLORIDE RIDER 20 MEQ in PREMIX 1 EACH IV PRN ×2 (14:39→16:40)
[2019-11-08] MEDS: clonazePAM 0.5 MG TABLET PO SCH (21:50)
[2019-11-08] MEDS: QUEtiapine 25 MG TABLET PO SCH (21:50)
[2019-11-09] MEDS: INSULIN LISPRO 100 UNIT/ML SUBCUT SCH ×4 (00:52→18:13)
[2019-11-09] MEDS: DEXMEDETOMIDINE 400 MCG in SODIUM CHLORIDE 0.9% 96 ML IV PRN ×3 (01:12→22:45)
[2019-11-09] MEDS: ALBUTEROL/IPRATROPIUM 3 ML NEB RESP TX SCH ×4 (01:25→20:39)
[2019-11-09] MEDS: NOREPINEPHRINE 8 MG in SODIUM CHLORIDE 0.9% 242 ML IV PRN (02:36)
[2019-11-09 04:50] LABS: ABG Base Excess 10.4 MMOL/L (-2.5-2.5); ABG HCO3 34.2 MMOL/L (20-26); ABG Oxygen Saturation 98.2 % (95-100); ABG PCO2 43.7 MM HG (35-48); ABG PH 7.507 (7.35-7.45); ABG PO2 96.9 MM HG (80-95); ABG TCO2 31.5 MMOL/L (23-27)
[2019-11-09] MEDS: MORPHINE 4 MG/1 ML VIAL IV PRN ×3 (05:01→17:36)
[2019-11-09 05:02] LABS: Basophils % 0.1 % (0.0-0.8); Eosinophils # 0.6 10*3/uL (0.0-0.87); Eosinophils % 3.4 % (0.00-10.9); Hematocrit 29.4 VOL% (35.7-47.0); Hemoglobin 9.5 GM/DL (12.0-16.0); Immature Granulocytes Absolute 0.17 #; Lymphocytes # 0.9 10*3/uL (1.4-4.0); Lymphocytes % 5.3 % (21.3-54.2); Mean Corpuscular HGB Conc 32.3 GM/DL (32-36); NRBC # 0.02 10*3/uL; Neutrophils % 82.2 % (38.7-73.9); Platelet Count 44 T/CUMM (130-400); Red Cell Distribution Width 15.8 % (9.3-17.3); White Blood Count 16.8 T/CUMM (4-12)
[2019-11-09 05:20] LABS: Albumin 1.6 G/DL (3.4-5.0); Calcium 7.3 MG/DL (8.5-10.1); Osmolality,Calculated 310.7 MOS/KG (273-304); Total Protein 4.9 G/DL (6.4-8.3)
[2019-11-09 05:30] LABS: Hypochromasia 2+; Microcytosis 1+; Platelet Estimate Decreased
[2019-11-09] MEDS: LEVOTHYROXINE 50 MCG TABLET PO SCH (06:15)
[2019-11-09] MEDS: POTASSIUM CHLORIDE RIDER 20 MEQ in PREMIX 1 EACH IV PRN (06:29)
[2019-11-09] MEDS: SODIUM CHLORIDE 0.9% 1,000 ML IV SCH (08:00)
[2019-11-09] MEDS ORDERED: FUROSEMIDE 40 MG/4 ML VIAL IV SCH ×2 (09:00→16:00)
[2019-11-09] MEDS: DULoxetine 30 MG CAPSULE PO SCH (09:30)
[2019-11-09] MEDS: POLYETHYLENE GLYCOL POWDER 17 GM PACK NG SCH ×2 (09:30→21:30)
[2019-11-09] MEDS: CALCIUM CARBONATE CHEW 500 MG TABLET PO SCH ×3 (09:30→21:31)
[2019-11-09] MEDS: FAMOTIDINE 20 MG/2 ML VIAL IV SCH (09:30)
[2019-11-09] MEDS: POTASSIUM CHLORIDE 20 MEQ/15 ML UDCUP PER TUBE PRN ×3 (09:31→21:30)
[2019-11-09] MEDS: GABAPENTIN 50 MG/ML 30 ML/BOTTLE PER TUBE SCH ×3 (09:31→21:30)
[2019-11-09] MEDS: APIXABAN 5 MG TABLET PO SCH ×2 (09:33→21:31)
[2019-11-09] MEDS: FUROSEMIDE 40 MG/4 ML VIAL IV SCH ×2 (09:42→16:33)
[2019-11-09] MEDS: MAGNESIUM SULF RIDER 2 GM in PREMIX 1 EACH IV PRN (09:51)
[2019-11-09] MEDS: clonazePAM 0.5 MG TABLET PO SCH (21:31)
[2019-11-09] MEDS: QUEtiapine 25 MG TABLET PO SCH (21:32)
[2019-11-10] MEDS: INSULIN LISPRO 100 UNIT/ML SUBCUT SCH ×4 (00:04→18:54)
[2019-11-10] MEDS: ALBUTEROL/IPRATROPIUM 3 ML NEB RESP TX SCH ×4 (00:59→20:00)
[2019-11-10 05:40] LABS: ABG Base Excess 12.6 MMOL/L (-2.5-2.5); ABG HCO3 36.4 MMOL/L (20-26); ABG Oxygen Saturation 98.8 % (95-100); ABG PH 7.523 (7.35-7.45); ABG TCO2 33.5 MMOL/L (23-27)
[2019-11-10 05:47] LABS: Basophils # 0.1 10*3/uL (0.0-0.2); Basophils % 0.3 % (0.0-0.8); Eosinophils # 0.4 10*3/uL (0.0-0.87); Eosinophils % 2.2 % (0.00-10.9); Hematocrit 29.5 VOL% (35.7-47.0); Hemoglobin 9.7 GM/DL (12.0-16.0); Immature Granulocytes % 1.1 %; Lymphocytes # 1.8 10*3/uL (1.4-4.0); Lymphocytes % 10.1 % (21.3-54.2); Mean Corpuscular HGB Conc 32.9 GM/DL (32-36); Monocytes % 15.6 % (1.7-12.7); Neutrophils % 70.7 % (38.7-73.9); Platelet Count 65 T/CUMM (130-400); Red Blood Count 3.51 MC/CUMM (3.8-5.5); Red Cell Distribution Width 15.9 % (9.3-17.3)
[2019-11-10 06:06] LABS: Albumin 1.8 G/DL (3.4-5.0); Bilirubin,Total 1.1 MG/DL (0.2-1.0); Calcium 7.8 MG/DL (8.5-10.1); Osmolality,Calculated 306.4 MOS/KG (273-304); Total Protein 5.4 G/DL (6.4-8.3)
[2019-11-10] MEDS: LEVOTHYROXINE 50 MCG TABLET PO SCH (06:51)
[2019-11-10] MEDS: POTASSIUM CHLORIDE 20 MEQ/15 ML UDCUP PER TUBE PRN (06:52)
[2019-11-10] MEDS: MORPHINE 4 MG/1 ML VIAL IV PRN ×2 (07:36→15:38)
[2019-11-10] MEDS ORDERED: ACETAMINOPHEN 325 MG TABLET ONE (08:22)
[2019-11-10 08:52] LABS: Eosinophils 4 % (0-10); Hypochromasia 1+; Lymphocytes 5 % (20-55); Microcytosis 1+; Platelet Estimate Decreased; Polychromasia Slight; Segmented Neutrophils 76 % (50-85); Tear Drop Cells Slight; Total Cells Counted 100
[2019-11-10] MEDS: APIXABAN 5 MG TABLET PO SCH ×2 (09:03→21:41)
[2019-11-10] MEDS: FAMOTIDINE 20 MG/2 ML VIAL IV SCH (09:03)
[2019-11-10] MEDS: FUROSEMIDE 40 MG/4 ML VIAL IV SCH ×2 (09:03→15:11)
[2019-11-10] MEDS: CALCIUM CARBONATE CHEW 500 MG TABLET PO SCH ×3 (09:04→21:41)
[2019-11-10] MEDS: ACETAMINOPHEN 325 MG TABLET PO PRN (09:04)
[2019-11-10] MEDS: DULoxetine 30 MG CAPSULE PO SCH (09:04)
[2019-11-10] MEDS: GABAPENTIN 50 MG/ML 30 ML/BOTTLE PER TUBE SCH ×3 (09:05→21:42)
[2019-11-10] MEDS: MAGNESIUM SULF RIDER 2 GM in PREMIX 1 EACH IV PRN (09:05)
[2019-11-10] MEDS: POLYETHYLENE GLYCOL POWDER 17 GM PACK NG SCH ×2 (09:05→21:40)
[2019-11-10] MEDS: SODIUM CHLORIDE 0.9% 1,000 ML IV SCH ×2 (09:05→14:32)
[2019-11-10] MEDS: MEROPENEM 500 MG in SODIUM CHLORIDE 0.9% 100 ML IV SCH ×2 (09:55→17:01)
[2019-11-10] MEDS: NOREPINEPHRINE 8 MG in SODIUM CHLORIDE 0.9% 242 ML IV PRN ×2 (09:55→19:39)
[2019-11-10] MEDS: DEXMEDETOMIDINE 400 MCG in SODIUM CHLORIDE 0.9% 96 ML IV PRN ×2 (10:50→22:20)
[2019-11-10] MEDS ORDERED: VANCOMYCIN INJ 1,250 MG in SODIUM CHLORIDE 0.9% 250 ML IV SCH (11:00)
[2019-11-10] MEDS: clonazePAM 0.5 MG TABLET PO SCH (21:40)
[2019-11-10] MEDS: QUEtiapine 25 MG TABLET PO SCH (21:41)
[2019-11-11] MEDS: MEROPENEM 500 MG in SODIUM CHLORIDE 0.9% 100 ML IV SCH ×2 (00:56→09:51)
[2019-11-11] MEDS: INSULIN LISPRO 100 UNIT/ML SUBCUT SCH ×4 (00:56→18:18)
[2019-11-11] MEDS: ALBUTEROL/IPRATROPIUM 3 ML NEB RESP TX SCH ×4 (02:36→19:54)
[2019-11-11 04:23] LABS: ABG Base Excess 10.6 MMOL/L (-2.5-2.5); ABG HCO3 34.3 MMOL/L (20-26); ABG Oxygen Saturation 98.4 % (95-100); ABG PCO2 36.2 MM HG (35-48); ABG PH 7.573 (7.35-7.45); ABG PO2 98.7 MM HG (80-95); ABG TCO2 29.7 MMOL/L (23-27); Allen Test Positive; Pt O2 Delivery Device Ventilator
[2019-11-11 05:02] LABS: Albumin 2.2 G/DL (3.4-5.0); Bilirubin,Total 1.2 MG/DL (0.2-1.0); Calcium 8.3 MG/DL (8.5-10.1); Osmolality,Calculated 302.3 MOS/KG (273-304); Total Protein 6.3 G/DL (6.4-8.3)
[2019-11-11] MEDS: NOREPINEPHRINE 8 MG in SODIUM CHLORIDE 0.9% 242 ML IV PRN ×3 (05:39→18:13)
[2019-11-11] MEDS: LEVOTHYROXINE 50 MCG TABLET PO SCH (06:23)
[2019-11-11] MEDS: MAGNESIUM SULF RIDER 2 GM in PREMIX 1 EACH IV PRN (06:23)
[2019-11-11] MEDS: MORPHINE 4 MG/1 ML VIAL IV PRN (07:19)
[2019-11-11] MEDS: SODIUM CHLORIDE 0.9% 1,000 ML IV SCH (08:00)
[2019-11-11 08:02] LABS: Basophils # 0.1 10*3/uL (0.0-0.2); Basophils % 0.5 % (0.0-0.8); Eosinophils # 0.3 10*3/uL (0.0-0.87); Hemoglobin 10.4 GM/DL (12.0-16.0); Immature Granulocytes % 2.5 %; Immature Granulocytes Absolute 0.59 #; Lymphocytes # 2.5 10*3/uL (1.4-4.0); Lymphocytes % 10.6 % (21.3-54.2); Mean Corpuscular HGB Conc 30.6 GM/DL (32-36); Mean Corpuscular Volume 88.3 FL (87-102); Mean Platelet Volume 13.7 FL (9.6-12.0); Monocytes % 18.8 % (1.7-12.7); Neutrophils % 66.6 % (38.7-73.9); Platelet Count 146 T/CUMM (130-400); Red Blood Count 3.85 MC/CUMM (3.8-5.5); Red Cell Distribution Width 15.9 % (9.3-17.3); White Blood Count 23.9 T/CUMM (4-12)
[2019-11-11] MEDS: DEXMEDETOMIDINE 400 MCG in SODIUM CHLORIDE 0.9% 96 ML IV PRN ×2 (09:18→17:16)
[2019-11-11] MEDS: POLYETHYLENE GLYCOL POWDER 17 GM PACK NG SCH (09:46)
[2019-11-11] MEDS: clonazePAM 0.5 MG TABLET PER TUBE PRN (09:46)
[2019-11-11] MEDS: POTASSIUM CHLORIDE 20 MEQ/15 ML UDCUP PER TUBE PRN (09:46)
[2019-11-11] MEDS: DULoxetine 30 MG CAPSULE PO SCH (09:47)
[2019-11-11] MEDS: APIXABAN 5 MG TABLET PO SCH (09:47)
[2019-11-11] MEDS: CALCIUM CARBONATE CHEW 500 MG TABLET PO SCH ×2 (09:47→16:32)
[2019-11-11] MEDS: FUROSEMIDE 40 MG/4 ML VIAL IV SCH (09:48)
[2019-11-11] MEDS: FAMOTIDINE 20 MG/2 ML VIAL IV SCH (09:49)
[2019-11-11] MEDS: ACETAMINOPHEN 325 MG TABLET PO PRN ×2 (09:50→13:06)
[2019-11-11] MEDS: GABAPENTIN 50 MG/ML 30 ML/BOTTLE PER TUBE SCH ×2 (09:50→16:32)
[2019-11-11 10:23] LABS: Hypochromasia 1+; Lymphocytes 6 % (20-55); Microcytosis Slight; Ovalocytes Few; Platelet Estimate Adequate; Polychromasia Slight; Segmented Neutrophils 83 % (50-85); Stomatocytes Slight; Total Cells Counted 100
[2019-11-11] MEDS ORDERED: MIDAZOLAM 100 MG in SODIUM CHLORIDE 0.9% 80 ML IV PRN (11:06)
[2019-11-11] MEDS ORDERED: methylPREDNISolone SOD SUC 125 MG/2 ML VIAL ONE (13:15)
[2019-11-11] MEDS ORDERED: diphenhydrAMINE 50 MG/1 ML VIAL ONE (13:16)
[2019-11-11] MEDS ORDERED: diphenhydrAMINE 50 MG/1 ML VIAL IV ONE (13:17)
[2019-11-11] MEDS ORDERED: FAMOTIDINE 20 MG/2 ML VIAL IV ONE (13:17)
[2019-11-11] MEDS ORDERED: methylPREDNISolone SOD SUC 125 MG/2 ML VIAL IV ONE (13:18)
[2019-11-11 14:01] LABS: HIT Interpretation Negative (Negative)
[2019-11-11] MEDS: METOPROLOL TARTRATE 5 MG/5 ML VIAL IV SCH ×2 (14:45→16:42)
[2019-11-11] MEDS: AZTREONAM 2,000 MG in SYRINGE 1 EACH IV SCH (14:48)
[2019-11-11] MEDS: LINEZOLID INJ 600 MG in PREMIX 1 EACH IV SCH (14:59)
[2019-11-11] MEDS ORDERED: SODIUM CHLORIDE 0.9% 500 ML IV ONE (21:48)
[2019-11-11] MEDS ORDERED: SODIUM BICARBONATE 50 MEQ/50 ML VIAL IV ONE ×2 (21:49)
[2019-11-11] MEDS ORDERED: DOBUTamine 500 MG/250 ML PREMIX IV PRN (22:05)
[2019-11-11 22:23] LABS: Hepatitis B Surface Ag Result Negative (Negative)
[2019-11-11 22:24] LABS: Hepatitis B Core IgM Quant 0.13 Index
[2019-11-11 22:54] LABS: ABG Base Excess 4.1 MMOL/L (-2.5-2.5); ABG HCO3 28.1 MMOL/L (20-26); ABG Oxygen Saturation 96.2 % (95-100); ABG PCO2 29.3 MM HG (35-48); ABG PH 7.556 (7.35-7.45); ABG PO2 72.7 MM HG (80-95); ABG TCO2 23.5 MMOL/L (23-27)
[2019-11-11 23:02] LABS: Basophils % 0.3 % (0.0-0.8); Eosinophils % 0.2 % (0.00-10.9); Hematocrit 30.2 VOL% (35.7-47.0); Hemoglobin 9.4 GM/DL (12.0-16.0); Immature Granulocytes % 5.2 %; Immature Granulocytes Absolute 0.62 #; Lymphocytes # 1.4 10*3/uL (1.4-4.0); Lymphocytes % 11.8 % (21.3-54.2); Mean Corpuscular HGB Conc 31.1 GM/DL (32-36); Mean Corpuscular Volume 86.8 FL (87-102); Mean Platelet Volume 13.5 FL (9.6-12.0); Monocytes % 3.5 % (1.7-12.7); Platelet Count 147 T/CUMM (130-400); Red Blood Count 3.48 MC/CUMM (3.8-5.5); Red Cell Distribution Width 15.7 % (9.3-17.3); White Blood Count 11.9 T/CUMM (4-12)
[2019-11-11 23:19] LABS: Blood Urea Nitrogen 68 MG/DL (7-18); CKMB % 5.2 %; Calcium 7.4 MG/DL (8.5-10.1); Estimated Glom Filtration Rate 36 ML/MIN; Glucose 293 MG/DL (74-106)
[2019-11-11] MEDS ORDERED: SODIUM CHLORIDE 0.9% 1,000 ML IV ONE (23:31)
[2019-11-11 23:38] LABS: Anisocytosis 1+; Band Neutrophils 1 % (0-10); Hypochromasia Slight; Lymphocytes 9 % (20-55); Microcytosis 1+; Platelet Estimate Normal; Segmented Neutrophils 88 % (50-85); Total Cells Counted 100
[2019-11-11 23:39] LABS: Polychromasia Slight; Stomatocytes Slight; Target Cells Slight
[2019-11-12] MEDS: ALBUTEROL/IPRATROPIUM 3 ML NEB RESP TX SCH ×4 (00:18→19:37)
[2019-11-12] MEDS: QUEtiapine 25 MG TABLET PO SCH ×2 (00:24→20:01)
[2019-11-12] MEDS: GABAPENTIN 50 MG/ML 30 ML/BOTTLE PER TUBE SCH ×4 (00:24→20:00)
[2019-11-12] MEDS: APIXABAN 5 MG TABLET PO SCH ×3 (00:25→20:02)
[2019-11-12] MEDS: CALCIUM CARBONATE CHEW 500 MG TABLET PO SCH ×4 (00:25→20:01)
[2019-11-12] MEDS: POLYETHYLENE GLYCOL POWDER 17 GM PACK NG SCH ×3 (00:25→20:00)
[2019-11-12] MEDS: clonazePAM 0.5 MG TABLET PO SCH ×2 (00:26→23:26)
[2019-11-12] MEDS: INSULIN LISPRO 100 UNIT/ML SUBCUT SCH ×4 (00:27→18:31)
[2019-11-12] MEDS: AZTREONAM 2,000 MG in SYRINGE 1 EACH IV SCH ×4 (00:27→22:14)
[2019-11-12] MEDS: SODIUM CHLORIDE 0.9% 1,000 ML IV SCH ×2 (00:36→08:31)
[2019-11-12] MEDS: NOREPINEPHRINE 8 MG in SODIUM CHLORIDE 0.9% 242 ML IV PRN ×2 (03:19→14:51)
[2019-11-12] MEDS: DEXMEDETOMIDINE 400 MCG in SODIUM CHLORIDE 0.9% 96 ML IV PRN ×2 (03:19→14:13)
[2019-11-12 04:37] LABS: ABG Base Excess 5.2 MMOL/L (-2.5-2.5); ABG HCO3 26.4 MMOL/L (20-26); ABG Oxygen Saturation 99.2 % (95-100); ABG PCO2 28.5 MM HG (35-48); ABG PH 7.585 (7.35-7.45); ABG PO2 252.1 MM HG (80-95); ABG TCO2 27.3 MMOL/L (23-27)
[2019-11-12 04:42] LABS: Basophils % 0.2 % (0.0-0.8); Eosinophils % 0.1 % (0.00-10.9); Hematocrit 26.6 VOL% (35.7-47.0); Hemoglobin 8.4 GM/DL (12.0-16.0); Immature Granulocytes % 1.7 %; Immature Granulocytes Absolute 0.29 #; Lymphocytes # 2.2 10*3/uL (1.4-4.0); Mean Corpuscular HGB Conc 31.6 GM/DL (32-36); Mean Corpuscular Volume 86.6 FL (87-102); Mean Platelet Volume 13.5 FL (9.6-12.0); Monocytes % 9.1 % (1.7-12.7); Neutrophils % 75.9 % (38.7-73.9); Platelet Count 170 T/CUMM (130-400); Red Blood Count 3.07 MC/CUMM (3.8-5.5); Red Cell Distribution Width 15.6 % (9.3-17.3); White Blood Count 16.6 T/CUMM (4-12)
[2019-11-12] MEDS: ACETAMINOPHEN 325 MG TABLET PO PRN ×2 (04:45→08:33)
[2019-11-12] MEDS: LINEZOLID INJ 600 MG in PREMIX 1 EACH IV SCH ×2 (04:45→13:43)
[2019-11-12 04:59] LABS: Albumin 1.8 G/DL (3.4-5.0); Calcium 7.6 MG/DL (8.5-10.1); Total Protein 5.5 G/DL (6.4-8.3)
[2019-11-12 05:18] LABS: CKMB % 4.9 %
[2019-11-12 05:20] LABS: Troponin I 3.17 NG/ML (0.00-0.045)
[2019-11-12] MEDS: LEVOTHYROXINE 50 MCG TABLET PO SCH (06:30)
[2019-11-12] MEDS: POTASSIUM CHLORIDE 20 MEQ/15 ML UDCUP PER TUBE PRN ×2 (06:36→12:28)
[2019-11-12 07:43] LABS: Hepatitis B Surface Ag Quant < 0.10 Index; Hepatitis C Virus Ab Quant 7.86 Index
[2019-11-12] MEDS: DULoxetine 30 MG CAPSULE PO SCH (08:34)
[2019-11-12] MEDS: FAMOTIDINE 20 MG/2 ML VIAL IV SCH (08:34)
[2019-11-12] MEDS: MAGNESIUM SULF RIDER 2 GM in PREMIX 1 EACH IV PRN (12:28)
[2019-11-12] MEDS ORDERED: POTASSIUM CHLORIDE 20 MEQ PACK NG ONE (12:53)
[2019-11-12] MEDS: MORPHINE 4 MG/1 ML VIAL IV PRN (19:59)
[2019-11-13] MEDS: ALBUTEROL/IPRATROPIUM 3 ML NEB RESP TX SCH ×4 (00:22→18:10)
[2019-11-13] MEDS: DEXMEDETOMIDINE 400 MCG in SODIUM CHLORIDE 0.9% 96 ML IV PRN ×3 (00:43→18:50)
[2019-11-13] MEDS: INSULIN LISPRO 100 UNIT/ML SUBCUT SCH ×5 (01:25→23:53)
[2019-11-13] MEDS: LINEZOLID INJ 600 MG in PREMIX 1 EACH IV SCH ×2 (01:26→14:10)
[2019-11-13 04:29] LABS: ABG HCO3 26.2 MMOL/L (20-26); ABG Oxygen Saturation 99.6 % (95-100); ABG PCO2 31.1 MM HG (35-48); ABG PH 7.502 (7.35-7.45); ABG TCO2 21.4 MMOL/L (23-27)
[2019-11-13 04:50] LABS: Basophils % 0.1 % (0.0-0.8); Hematocrit 24.4 VOL% (35.7-47.0); Hemoglobin 7.5 GM/DL (12.0-16.0); Immature Granulocytes % 1.3 %; Immature Granulocytes Absolute 0.21 #; Lymphocytes # 1.2 10*3/uL (1.4-4.0); Lymphocytes % 7.1 % (21.3-54.2); Mean Corpuscular HGB Conc 30.7 GM/DL (32-36); Mean Corpuscular Volume 87.8 FL (87-102); Mean Platelet Volume 14.3 FL (9.6-12.0); Monocytes % 15.8 % (1.7-12.7); NRBC # 0.02 10*3/uL; Neutrophils % 75.7 % (38.7-73.9); Platelet Count 212 T/CUMM (130-400); Red Blood Count 2.78 MC/CUMM (3.8-5.5); Red Cell Distribution Width 15.9 % (9.3-17.3); White Blood Count 16.7 T/CUMM (4-12)
[2019-11-13 04:59] LABS: INR 2.2
[2019-11-13 05:01] LABS: PT Patient Result 24.1 SECS (9.6-12.2)
[2019-11-13 05:08] LABS: Osmolality,Calculated 311.8 MOS/KG (273-304)
[2019-11-13 05:14] LABS: Albumin 2.2 G/DL (3.4-5.0); Bilirubin,Total 1.3 MG/DL (0.2-1.0); Total Protein 5.7 G/DL (6.4-8.3)
[2019-11-13 05:16] LABS: Troponin I 2.03 NG/ML (0.00-0.045)
[2019-11-13 05:19] LABS: Hypochromasia 1+; Lymphocytes 6 % (20-55); Microcytosis Slight; Platelet Estimate Adequate; Segmented Neutrophils 78 % (50-85); Total Cells Counted 100
[2019-11-13] MEDS: POTASSIUM CHLORIDE 20 MEQ TABLET PO PRN (05:21)
[2019-11-13] MEDS: LEVOTHYROXINE 50 MCG TABLET PO SCH (06:50)
[2019-11-13] MEDS: AZTREONAM 2,000 MG in SYRINGE 1 EACH IV SCH ×3 (06:51→23:53)
[2019-11-13] MEDS: clonazePAM 0.5 MG TABLET PER TUBE PRN (07:36)
[2019-11-13] MEDS: MORPHINE 4 MG/1 ML VIAL IV PRN ×3 (07:40→14:11)
[2019-11-13] MEDS: DULoxetine 30 MG CAPSULE PO SCH (09:06)
[2019-11-13] MEDS: CALCIUM CARBONATE CHEW 500 MG TABLET PO SCH ×3 (09:07→20:41)
[2019-11-13] MEDS: FAMOTIDINE 20 MG/2 ML VIAL IV SCH (09:07)
[2019-11-13] MEDS: POLYETHYLENE GLYCOL POWDER 17 GM PACK NG SCH ×2 (09:07→20:40)
[2019-11-13] MEDS: APIXABAN 5 MG TABLET PO SCH ×2 (09:07→20:41)
[2019-11-13] MEDS: POTASSIUM CHLORIDE 20 MEQ/15 ML UDCUP PER TUBE SCH ×2 (09:11→14:06)
[2019-11-13] MEDS: GABAPENTIN 50 MG/ML 30 ML/BOTTLE PER TUBE SCH ×3 (09:21→20:44)
[2019-11-13] MEDS: fentaNYL 75 MCG/HR PATCH TRANSDERM SCH (10:38)
[2019-11-13] MEDS: NOREPINEPHRINE 8 MG in SODIUM CHLORIDE 0.9% 242 ML IV PRN ×2 (11:06→20:34)
[2019-11-13] MEDS: SODIUM CHLORIDE 0.9% 1,000 ML IV SCH (14:42)
[2019-11-13] MEDS: ACETAMINOPHEN 325 MG TABLET PO PRN ×2 (16:09→21:30)
[2019-11-13] MEDS: clonazePAM 0.5 MG TABLET PO SCH (20:40)
[2019-11-13] MEDS: QUEtiapine 25 MG TABLET PO SCH (20:41)
[2019-11-14] MEDS: ALBUTEROL/IPRATROPIUM 3 ML NEB RESP TX SCH ×4 (00:14→19:05)
[2019-11-14] MEDS: DEXMEDETOMIDINE 400 MCG in SODIUM CHLORIDE 0.9% 96 ML IV PRN ×4 (02:01→23:05)
[2019-11-14] MEDS: LINEZOLID INJ 600 MG in PREMIX 1 EACH IV SCH ×2 (02:54→14:49)
[2019-11-14 04:48] LABS: ABG Base Excess -0.5 MMOL/L (-2.5-2.5); ABG Oxygen Saturation 99.3 % (95-100); ABG PCO2 34.8 MM HG (35-48); ABG PH 7.435 (7.35-7.45); ABG TCO2 22.1 MMOL/L (23-27)
[2019-11-14 05:25] LABS: Basophils % 0.1 % (0.0-0.8); Eosinophils % 0.1 % (0.00-10.9); Immature Granulocytes % 2.1 %; Immature Granulocytes Absolute 0.37 #; Lymphocytes % 11.2 % (21.3-54.2); Mean Corpuscular Volume 90.9 FL (87-102); Mean Platelet Volume 14.1 FL (9.6-12.0); Monocytes % 13.2 % (1.7-12.7); NRBC # 0.05 10*3/uL; Neutrophils % 73.3 % (38.7-73.9); Platelet Count 256 T/CUMM (130-400); Red Blood Count 2.31 MC/CUMM (3.8-5.5)
[2019-11-14 05:30] LABS: Hemoglobin 6.3 GM/DL (12.0-16.0)
[2019-11-14] MEDS ORDERED: SODIUM CHLORIDE 0.9% 1,000 ML IV PRN (05:46)
[2019-11-14 05:49] LABS: Osmolality,Calculated 301.4 MOS/KG (273-304)
[2019-11-14] MEDS: AZTREONAM 2,000 MG in SYRINGE 1 EACH IV SCH ×3 (06:23→22:53)
[2019-11-14] MEDS: LEVOTHYROXINE 50 MCG TABLET PO SCH (06:23)
[2019-11-14] MEDS: INSULIN LISPRO 100 UNIT/ML SUBCUT SCH ×3 (06:23→17:59)
[2019-11-14] MEDS: POLYETHYLENE GLYCOL POWDER 17 GM PACK NG SCH ×2 (08:15→20:09)
[2019-11-14] MEDS: GABAPENTIN 50 MG/ML 30 ML/BOTTLE PER TUBE SCH ×3 (08:15→20:10)
[2019-11-14] MEDS: DULoxetine 30 MG CAPSULE PO SCH (08:16)
[2019-11-14] MEDS: CALCIUM CARBONATE CHEW 500 MG TABLET PO SCH ×3 (08:17→20:09)
[2019-11-14] MEDS: FAMOTIDINE 20 MG/2 ML VIAL IV SCH (08:18)
[2019-11-14] MEDS ORDERED: APIXABAN 5 MG TABLET PO SCH (09:00)
[2019-11-14] MEDS: NOREPINEPHRINE 8 MG in SODIUM CHLORIDE 0.9% 242 ML IV PRN (10:33)
[2019-11-14] MEDS: ALBUMIN 25% 25 GM in PREMIX 1 EACH IV SCH ×2 (11:50→20:08)
[2019-11-14] MEDS: SODIUM CHLORIDE 0.9% 1,000 ML IV SCH (12:52)
[2019-11-14] MEDS: clonazePAM 0.5 MG TABLET PER TUBE PRN (13:24)
[2019-11-14] MEDS: MORPHINE 4 MG/1 ML VIAL IV PRN ×2 (13:25→20:52)
[2019-11-14] MEDS: ACETAMINOPHEN 325 MG TABLET PO PRN (13:55)
[2019-11-14] MEDS ORDERED: FUROSEMIDE 40 MG/4 ML VIAL IV ONE (14:00)
[2019-11-14] MEDS: clonazePAM 0.5 MG TABLET PO SCH (20:09)
[2019-11-14] MEDS: QUEtiapine 25 MG TABLET PO SCH (20:09)
[2019-11-15] MEDS: INSULIN LISPRO 100 UNIT/ML SUBCUT SCH ×4 (00:25→18:59)
[2019-11-15] MEDS: NOREPINEPHRINE 8 MG in SODIUM CHLORIDE 0.9% 242 ML IV PRN (00:57)
[2019-11-15] MEDS: ALBUTEROL/IPRATROPIUM 3 ML NEB RESP TX SCH ×4 (01:55→19:19)
[2019-11-15] MEDS: LINEZOLID INJ 600 MG in PREMIX 1 EACH IV SCH ×2 (03:50→14:43)
[2019-11-15 04:24] LABS: ABG Base Excess -0.5 MMOL/L (-2.5-2.5); ABG Oxygen Saturation 98.9 % (95-100); ABG PCO2 36.5 MM HG (35-48); ABG PH 7.421 (7.35-7.45); ABG TCO2 21.9 MMOL/L (23-27)
[2019-11-15 04:33] LABS: Basophils % 0.1 % (0.0-0.8); Eosinophils # 0.2 10*3/uL (0.0-0.87); Eosinophils % 1.3 % (0.00-10.9); Hematocrit 27.2 VOL% (35.7-47.0); Hemoglobin 8.5 GM/DL (12.0-16.0); Immature Granulocytes % 1.3 %; Immature Granulocytes Absolute 0.22 #; Lymphocytes # 1.8 10*3/uL (1.4-4.0); Lymphocytes % 10.5 % (21.3-54.2); Mean Corpuscular HGB Conc 31.3 GM/DL (32-36); Mean Corpuscular Volume 87.2 FL (87-102); Monocytes % 6.8 % (1.7-12.7); NRBC # 0.05 10*3/uL; Platelet Count 193 T/CUMM (130-400); Red Blood Count 3.12 MC/CUMM (3.8-5.5)
[2019-11-15 04:51] LABS: Calcium 7.7 MG/DL (8.5-10.1); Osmolality,Calculated 299.3 MOS/KG (273-304)
[2019-11-15] MEDS: POTASSIUM CHLORIDE RIDER 20 MEQ in PREMIX 1 EACH IV PRN (05:37)
[2019-11-15] MEDS: DEXMEDETOMIDINE 400 MCG in SODIUM CHLORIDE 0.9% 96 ML IV PRN ×2 (06:14→22:12)
[2019-11-15] MEDS: MORPHINE 4 MG/1 ML VIAL IV PRN ×4 (06:15→19:40)
[2019-11-15] MEDS: AZTREONAM 2,000 MG in SYRINGE 1 EACH IV SCH ×3 (08:27→22:32)
[2019-11-15] MEDS: POLYETHYLENE GLYCOL POWDER 17 GM PACK NG SCH ×2 (08:28→20:08)
[2019-11-15] MEDS: FAMOTIDINE 20 MG/2 ML VIAL IV SCH (08:28)
[2019-11-15] MEDS: DULoxetine 30 MG CAPSULE PO SCH (08:28)
[2019-11-15] MEDS: CALCIUM CARBONATE CHEW 500 MG TABLET PO SCH ×3 (08:28→20:05)
[2019-11-15] MEDS: LEVOTHYROXINE 50 MCG TABLET PO SCH (08:33)
[2019-11-15] MEDS: PHENYLEPHRINE DRIP 40 MG/250 ML PREMIX IV PRN ×2 (10:25→20:42)
[2019-11-15] MEDS: GABAPENTIN 50 MG/ML 30 ML/BOTTLE PER TUBE SCH ×3 (12:06→20:10)
[2019-11-15] MEDS ORDERED: LACTATED RINGERS 1,000 ML IV ONE (12:57)
[2019-11-15] MEDS ORDERED: HYDROCORTISONE 100 MG VIAL IV ONE (13:30)
[2019-11-15] MEDS: DOBUTamine 500 MG/250 ML PREMIX IV SCH (13:47)
[2019-11-15] MEDS: ALBUMIN 25% 25 GM in PREMIX 1 EACH IV SCH (16:50)
[2019-11-15] MEDS: clonazePAM 0.5 MG TABLET PO SCH (20:05)
[2019-11-15] MEDS: QUEtiapine 25 MG TABLET PO SCH (20:05)
[2019-11-15] MEDS: HYDROCORTISONE 100 MG VIAL IV SCH (20:06)
[2019-11-16] MEDS: INSULIN LISPRO 100 UNIT/ML SUBCUT SCH ×4 (00:35→17:47)
[2019-11-16] MEDS: ALBUMIN 25% 25 GM in PREMIX 1 EACH IV SCH (01:03)
[2019-11-16] MEDS: ALBUTEROL/IPRATROPIUM 3 ML NEB RESP TX SCH ×4 (01:30→19:39)
[2019-11-16] MEDS: MORPHINE 4 MG/1 ML VIAL IV PRN ×4 (02:15→20:14)
[2019-11-16] MEDS: LINEZOLID INJ 600 MG in PREMIX 1 EACH IV SCH ×2 (02:15→13:40)
[2019-11-16 04:06] LABS: ABG Base Excess -3.5 MMOL/L (-2.5-2.5); ABG HCO3 20.4 MMOL/L (20-26); ABG Oxygen Saturation 98.7 % (95-100); ABG PCO2 31.9 MM HG (35-48); ABG PH 7.423 (7.35-7.45); ABG PO2 153.3 MM HG (80-95); ABG TCO2 21.3 MMOL/L (23-27)
[2019-11-16 04:08] LABS: Basophils % 0.1 % (0.0-0.8); Hematocrit 25.9 VOL% (35.7-47.0); Hemoglobin 7.9 GM/DL (12.0-16.0); Immature Granulocytes % 1.4 %; Immature Granulocytes Absolute 0.23 #; Lymphocytes # 0.5 10*3/uL (1.4-4.0); Lymphocytes % 3.4 % (21.3-54.2); Mean Corpuscular HGB Conc 30.5 GM/DL (32-36); Mean Corpuscular Volume 89.3 FL (87-102); Mean Platelet Volume 14.2 FL (9.6-12.0); Monocytes % 3.2 % (1.7-12.7); NRBC # 0.04 10*3/uL; Neutrophils % 91.9 % (38.7-73.9); Platelet Count 213 T/CUMM (130-400); Red Cell Distribution Width 16.9 % (9.3-17.3); White Blood Count 15.9 T/CUMM (4-12)
[2019-11-16] MEDS: HYDROCORTISONE 100 MG VIAL IV SCH ×3 (04:25→20:13)
[2019-11-16 04:30] LABS: Osmolality,Calculated 294.5 MOS/KG (273-304)
[2019-11-16 04:38] LABS: Lymphocytes 3 % (20-55); Segmented Neutrophils 95 % (50-85); Total Cells Counted 100
[2019-11-16 04:39] LABS: Anisocytosis 1+; Hypochromasia 1+; Platelet Estimate Normal
[2019-11-16 04:52] LABS: Prealbumin 14.5 MG/DL (20-40)
[2019-11-16] MEDS: DOBUTamine 500 MG/250 ML PREMIX IV SCH ×3 (06:54→10:30)
[2019-11-16] MEDS: LEVOTHYROXINE 50 MCG TABLET PO SCH (07:55)
[2019-11-16] MEDS: DULoxetine 30 MG CAPSULE PO SCH (07:55)
[2019-11-16] MEDS: CALCIUM CARBONATE CHEW 500 MG TABLET PO SCH ×3 (07:55→20:13)
[2019-11-16] MEDS: AZTREONAM 2,000 MG in SYRINGE 1 EACH IV SCH ×3 (07:55→22:52)
[2019-11-16] MEDS: FAMOTIDINE 20 MG/2 ML VIAL IV SCH (08:00)
[2019-11-16] MEDS: DEXMEDETOMIDINE 400 MCG in SODIUM CHLORIDE 0.9% 96 ML IV PRN (08:05)
[2019-11-16] MEDS: fentaNYL 75 MCG/HR PATCH TRANSDERM SCH (08:10)
[2019-11-16] MEDS ORDERED: FUROSEMIDE 40 MG/4 ML VIAL IV ONE (09:00)
[2019-11-16] MEDS: POLYETHYLENE GLYCOL POWDER 17 GM PACK NG SCH ×2 (09:00→21:04)
[2019-11-16] MEDS: GABAPENTIN 50 MG/ML 30 ML/BOTTLE PER TUBE SCH (10:50)
[2019-11-16] MEDS: GABAPENTIN 100 MG CAPSULE PO SCH ×2 (15:05→20:12)
[2019-11-16] MEDS: LORazepam 0.5 MG TABLET PO PRN (15:40)
[2019-11-16] MEDS: clonazePAM 0.5 MG TABLET PO SCH (20:12)
[2019-11-16] MEDS: QUEtiapine 25 MG TABLET PO SCH (20:13)
[2019-11-16 22:20] LABS: ABG Base Excess -3.5 MMOL/L (-2.5-2.5); ABG HCO3 21.5 MMOL/L (20-26); ABG Oxygen Saturation 99.2 % (95-100); ABG PCO2 39.1 MM HG (35-48); ABG PH 7.353 (7.35-7.45); ABG TCO2 20.3 MMOL/L (23-27)
[2019-11-17] MEDS: INSULIN LISPRO 100 UNIT/ML SUBCUT SCH ×6 (00:02→21:34)
[2019-11-17] MEDS: ALBUTEROL/IPRATROPIUM 3 ML NEB RESP TX SCH ×4 (00:59→19:40)
[2019-11-17] MEDS: LORazepam 0.5 MG TABLET PO PRN (01:22)
[2019-11-17] MEDS: LINEZOLID INJ 600 MG in PREMIX 1 EACH IV SCH ×2 (02:53→14:49)
[2019-11-17] MEDS: HYDROCORTISONE 100 MG VIAL IV SCH ×2 (03:01→14:49)
[2019-11-17 04:04] LABS: ABG Base Excess -4.4 MMOL/L (-2.5-2.5); ABG HCO3 21.4 MMOL/L (20-26); ABG PCO2 42.3 MM HG (35-48); ABG PH 7.322 (7.35-7.45); ABG PO2 140.4 MM HG (80-95); ABG TCO2 22.7 MMOL/L (23-27)
[2019-11-17 04:12] LABS: Basophils % 0.1 % (0.0-0.8); Hematocrit 26.7 VOL% (35.7-47.0); Immature Granulocytes % 1.6 %; Immature Granulocytes Absolute 0.26 #; Lymphocytes # 0.8 10*3/uL (1.4-4.0); Lymphocytes % 4.6 % (21.3-54.2); Mean Corpuscular Volume 91.8 FL (87-102); Mean Platelet Volume 13.8 FL (9.6-12.0); Monocytes % 2.5 % (1.7-12.7); NRBC # 0.02 10*3/uL; Neutrophils % 91.2 % (38.7-73.9); Platelet Count 265 T/CUMM (130-400); Red Blood Count 2.91 MC/CUMM (3.8-5.5); Red Cell Distribution Width 17.1 % (9.3-17.3); White Blood Count 16.7 T/CUMM (4-12)
[2019-11-17 04:41] LABS: Calcium 8.3 MG/DL (8.5-10.1); Osmolality,Calculated 292.7 MOS/KG (273-304)
[2019-11-17 04:52] LABS: Lymphocytes 2 % (20-55); Segmented Neutrophils 94 % (50-85); Total Cells Counted 100
[2019-11-17 04:53] LABS: Hypochromasia 2+; Ovalocytes Slight; Platelet Estimate Adequate
[2019-11-17] MEDS: MAGNESIUM SULF RIDER 2 GM in PREMIX 1 EACH IV PRN (05:51)
[2019-11-17] MEDS: AZTREONAM 2,000 MG in SYRINGE 1 EACH IV SCH ×3 (08:10→23:05)
[2019-11-17] MEDS: LEVOTHYROXINE 50 MCG TABLET PO SCH (08:13)
[2019-11-17] MEDS: FAMOTIDINE 20 MG/2 ML VIAL IV SCH (08:13)
[2019-11-17] MEDS: MORPHINE 4 MG/1 ML VIAL IV PRN ×2 (08:42→16:20)
[2019-11-17] MEDS: CALCIUM CARBONATE CHEW 500 MG TABLET PO SCH ×3 (08:56→21:07)
[2019-11-17] MEDS: DULoxetine 30 MG CAPSULE PO SCH (08:56)
[2019-11-17] MEDS: GABAPENTIN 100 MG CAPSULE PO SCH ×3 (08:56→21:05)
[2019-11-17] MEDS: POLYETHYLENE GLYCOL POWDER 17 GM PACK NG SCH ×2 (09:00→23:09)
[2019-11-17] MEDS ORDERED: FUROSEMIDE 40 MG/4 ML VIAL IV ONE (10:22)
[2019-11-17] MEDS: DOBUTamine 500 MG/250 ML PREMIX IV SCH (10:30)
[2019-11-17] MEDS ORDERED: MORPHINE 4 MG/1 ML VIAL IV PRN (18:05)
[2019-11-17 18:24] VITALS: BP 112/53
[2019-11-17] MEDS ORDERED: FLUCONAZOLE INJ 100 MG in IV BAG 1 EACH IV SCH (20:00)
[2019-11-17] MEDS: clonazePAM 0.5 MG TABLET PO SCH (21:05)
[2019-11-17] MEDS: QUEtiapine 25 MG TABLET PO SCH (21:06)
[2019-11-18] MEDS: LINEZOLID INJ 600 MG in PREMIX 1 EACH IV SCH (01:32)
[2019-11-18] MEDS: ALBUTEROL/IPRATROPIUM 3 ML NEB RESP TX SCH (01:39)
[2019-11-18] MEDS: PHENYLEPHRINE DRIP 40 MG/250 ML PREMIX IV PRN (03:15)
[2019-11-18] MEDS: HYDROCORTISONE 100 MG VIAL IV SCH (03:17)
[2019-11-18] MEDS ORDERED: LORazepam 2 MG/1 ML VIAL ONE (04:18)
[2019-11-18] MEDS ORDERED: LORazepam 2 MG/1 ML VIAL IV ONE (04:19)
[2019-11-18 04:43] LABS: Calcium 8.9 MG/DL (8.5-10.1)
[2019-11-18 04:54] LABS: Basophils # 0.1 10*3/uL (0.0-0.2); Basophils % 0.2 % (0.0-0.8); Hematocrit 29.1 VOL% (35.7-47.0); Immature Granulocytes % 2.6 %; Immature Granulocytes Absolute 0.93 #; Lymphocytes # 0.6 10*3/uL (1.4-4.0); Lymphocytes % 1.8 % (21.3-54.2); Mean Corpuscular HGB Conc 27.5 GM/DL (32-36); Mean Corpuscular Volume 100.3 FL (87-102); Mean Platelet Volume 14.1 FL (9.6-12.0); Monocytes % 7.1 % (1.7-12.7); NRBC # 0.18 10*3/uL; Neutrophils % 88.3 % (38.7-73.9); Platelet Count 331 T/CUMM (130-400); Red Cell Distribution Width 17.5 % (9.3-17.3); White Blood Count 35.5 T/CUMM (4-12)
[2019-11-18 05:54] LABS: Band Neutrophils 3 % (0-10); Hypochromasia 1+; Lymphocytes 3 % (20-55); Platelet Estimate Adequate; Segmented Neutrophils 88 % (50-85); Total Cells Counted 100
== END 2019-11-18 04:53 | disposition expired | DRG 720 ==
LOC: N.ED 12:15 → SUATTDRO 14:15 → N.EDINP 14:15 → N.ICU 15:41
PROVIDERS: ADMIT Internal Medicine; ATTEND Family Medicine
PROC: COLONBX (2019-11-05 11:20)